=== PATIENT | female | born 1955 | race Caucasian/White ===

== ENCOUNTER 2019-10-20 16:10 | Inpatient (IN) ==
--- OUTSIDE RECORDS SUMMARY | 2019-10-20 16:12 | External Medical Summary | Continuity of Care Document ---
:1955 Author Name Ab Calle, Provider Address Unavailable Unavailable , Care Team Providers Name Role Phone Luciano Calle, Ezra Higgins Unavailable [email or web address] Unavailable Unavailable Unavailable Unavailable Unavailable Problems Anemia due to acute blood loss (285.1) (D62) Adenocarcinoma of uterus (179) (C55) Hypertension (401.9) (I10) Allergies and Adverse Reactions No Known Drug Allergies (Allergy) Medications Lisinopril-hydroCHLOROthiazide TABS Refills: 0 Norethindrone Acetate 5 MG Oral Tablet; TAKE 1 TABLET 4 TIMES DAILY Luc Wolf Start: Quantity: 30 20-Oct-2012 Refills: 0 Ferrous Gluconate 325 (36 Fe) MG TABS; TAKE 1 TABLET 3 times daily Luc Wolf Start: Quantity: 120 20-Oct-2012 Refills: 0 Procedures History of Hysteroscopy Of Uterus Status : Completed History of Dilation And Curettage Status : Completed Immunizations Immunizations not documented Social History - Smoking Status Never smoked tobacco Plan of Treatment Planned Observations Planned Goals not documented Results No Known Results Results not documented
--- NOTE | 2019-10-20 17:52 | Emergency Department Note ---
Impression & Plan Acute right flank pain ED Provider Note NAME: EVA MELGOZA AGE: 64 SEX: F ARRIVES VIA: Walk-In INFORMANT: [Patient] ED PROVIDER(S): Jose Luis Mansfield MD CHIEF COMPLAINT: Flank pain PLAN: Disposition: Admitted Condition: [Good] MEDICAL DECISION MAKING: Patient presented with complaints of right flank pain. Initially the seem to be of a possible abdominal etiology. Blood work was obtained. Urinalysis performed. Patient also had CT imaging of the abdomen pelvis ordered. She was found to have a mild leukocytosis. There was some bacteria in the urine but the specimen appeared to be an unsatisfactory clean-catch. CT imaging did not reveal any renal pathology or stones. The patient was found to have a right lower lobe effusion as well as changes in the right middle and lower lobes. Patient did note some shortness of breath issues. She did not have any stigmata of DVT. I was concerned given the pain and the abnormal appearance of the chest on abdominal imaging. CT PE study was performed and revealed bilateral pulmonary emboli. Coagulation studies were ordered. The patient was informed. I discussed initiation of anticoagulation with heparin. Hypercoagulability labs were ordered. The case was discussed with Dr. Moreland of internal medicine. The patient was evaluated in the ER and admitted. Internal medicine will follow her urinalysis culture results. Triage Nursing notes reviewed and agree them. Vital Signs: reviewed and remarkable for [no significant abnormalities] Differential diagnosis: Renal colic, UTI, appendicitis, diverticulitis, mesenteric ischemia, aortic pathology, infections, inflammatory bowel disease, PUD, biliary pathology, pneumonia, as well as other pathologies. ER treatment provided: Patient declined analgesia IV heparin Diagnostics interpreted by me: Consultation(s): Internal medicine HPI: The patient is a 64 year old female who presents to the Emergency Room with complaints of right flank pain. This started 4-5 days ago and is colicky. The patient also notes the following associated symptoms, RLQ abd pain. The patient has taken no medications for relieving factors. Current pain is rated as 1/10. Peak pain, sharp 6/10. Pt denies LOC, headache, fevers, chills, diaphoresis, visual changes, neck pain, chest pain, breathing difficulties, nausea, vomiting, back pain, melena, hematochezia, urinary symptoms, numbness, weakness, lymphadenopathy, rash, or other complaints. ROS: See above HPI for pertinent positives & negatives. A total of [10] systems reviewed and were otherwise negative. PAST MEDICAL HISTORY:[See Below] Uterine CA PAST SURGICAL HISTORY:[See Below]s/p Hysterectomy FAMILY HISTORY:[See Below] SOCIAL HISTORY:[See Below]No etoh, no tobacco HOME MEDICATIONS:[See Below] ALLERGIES:[See Below] VITALS:[See Below] PHYSICAL EXAMINATION: GENERAL: Awake, alert, well-appearing, in no distress HENT: Normocephalic, atraumatic. Oropharynx unremarkable. EYES: Normal conjunctiva. Sclera non-icteric. NECK: Inspection normal. Non-tender. Supple. No nuchal rigidity. FROM. No masses. RESPIRATORY: Clear to auscultation. No wheezes. No rales. Normal respiratory effort. CARDIAC: Normal rate. Normal rhythm. No murmurs. No rubs. Extremities warm and well perfused. Pulses equal. No JVD. GI: Soft, non-distended. Right flank tenderness to palpation. No rebound or guarding. No masses. RECTAL: Deferred. MUSCULOSKELETAL: Atraumatic. Chest examination reveals no tenderness. The back is symmetrical on inspection without obvious abnormality. There is right CVA tenderness to palpation. No joint edema. LOWER EXTREMITIES: Calves are equal size bilaterally and non-tender. No edema. No discoloration. NEURO: Normal sensorium. No sensory or motor deficits noted. SKIN: No rash or jaundice noted. ED COURSE: [Critical Care:] I have personally spent greater than 30 minutes of critical care time in the direct management of this patient. This includes bedside care, interpretation of diagnostic studies, and testing, discussion with consultants, patient, and other required patient management activities. This 30 minutes is in excess of all separately billable procedures. Jose Luis Mansfield MD Past Med/Surg History Social History Preferred Language: Trinidadian Beliefs That Will Affect Care: None Current Living Situation: Alone Other Information That Helps Us Care for You: No Feels Safe at Home: Yes Safety Concerns: Feels Safe At This Time Smoking Status: Never smoker Hx Alcohol Use: No Hx Substance Use: No Allergies Allergies Allergy/AdvReac Type Severity Reaction Status Date / Time No Known Allergies Allergy Verified 10/20/19 18:40 Home Meds Home Medications Medication Instructions Recorded Confirmed Probiotic Gummy 1 tab PO QPM 10/20/19 10/20/19 aspirin 81 mg PO QPM 10/20/19 10/20/19 cholecalciferol (vitamin D3) 1,000 unit PO QPM 10/20/19 10/20/19 [Vitamin D3] coenzyme Q10 100 mg PO QPM 10/20/19 10/20/19 inulin [Fiber Gummies] 2 g PO QPM 10/20/19 10/20/19 [id number]-cel-mhmdeke-ast 1 cap PO QPM 10/20/19 10/20/19 [krill oil] lisinopril-hydrochlorothiazide 1 tab PO QPM 10/20/19 10/20/19 [id number]-efirwyns-tcmhap 1 tab PO QPM 10/20/19 10/20/19 [Multivitamin 50 Plus] Results & Data (ED) Vital Signs Vital Signs - 24 hr 10/20/19 16:12 10/20/19 18:06 10/20/19 18:30 Temperature 36.7 C Temperature Source Oral Pulse Rate 110 H Pulse Rate [Left Finger] 112 H 100 H Pulse Rhythm Regular Pulse Strength Normal Respiratory Rate 18 22 20 Respiratory Effort / Characteristics Non-Labored Spontaneous Respiratory Depth Normal Respiratory Pattern Regular Blood Pressure 101/70 Blood Pressure [Right Arm] 132/72 116/87 Blood Pressure Mean 80 Blood Pressure Mean [Right Arm] 92 96 Blood Pressure Position Sitting Blood Pressure Position [Right Arm] Pulse Oximetry 95 98 97 Oxygen Delivery Method Room Air Room Air Room Air Sepsis Recent Fever Within 48 Hours No Sepsis New/Unexplained Change in Mental Status No Sepsis Action Taken by Nursing No Action Required 10/20/19 19:13 10/20/19 20:39 10/20/19 21:42 Temperature Temperature Source Pulse Rate Pulse Rate [Left Finger] 98 H 95 H 91 H Pulse Rhythm Pulse Strength Respiratory Rate 20 20 20 Respiratory Effort / Characteristics Non-Labored Spontaneous Respiratory Depth Normal Normal Respiratory Pattern Blood Pressure Blood Pressure [Right Arm] 117/80 127/80 135/95 Blood Pressure Mean Blood Pressure Mean [Right Arm] 92 95 108 Blood Pressure Position Blood Pressure Position [Right Arm] Lying Sitting Lying Pulse Oximetry 99 99 94 Oxygen Delivery Method Room Air Room Air Sepsis Recent Fever Within 48 Hours Sepsis New/Unexplained Change in Mental Status Sepsis Action Taken by Nursing Laboratory Data Result diagrams: 10/20/19 17:57 06/05/20 17:57 Lab Results 10/20/19 10/20/19 10/20/19 Range/Units 17:50 17:57 17:57 WBC 13.74 H (4.8-10.8) K/uL RBC 4.73 (4.2-5.4) M/uL Hgb 11.3 L (12.0-16.0) g/dL Hct 36.4 L (37-47) % MCV 77.0 L (80-100) fL MCH 23.9 L (25-34) pg MCHC 31.0 L (32-36) g/dL RDW Std Deviation 45.6 (36.4-46.3) fL RDW Coeff of Dahlia 16.5 H (11.5-14.5) % Plt Count 439 H (130-400) K/uL MPV 9.3 (7.4-10.4) fL Immature Gran % (Auto) 0.2 % Neut % (Auto) 84.0 % Lymph % (Auto) 9.3 % [place] % (Auto) 6.4 % Eos % (Auto) 0.0 % Baso % (Auto) 0.1 % Immature Gran # (Auto) 0.03 H (0.00-0.02) K/uL Neut # (Auto) 11.53 H (1.4-6.5) K/uL Lymph # (Auto) 1.28 (1.2-3.4) K/uL [place] # (Auto) 0.88 H (0.11-0.59) K/uL Eos # (Auto) 0.00 (0-0.5) K/uL Baso # (Auto) 0.02 (0-0.2) K/uL PT 13.0 H (9.0-12.0) Seconds INR 1.2 H (0.9-1.1) APTT 21.7 (21.0-31.0) Seconds PTT Ratio 0.8 Sodium 139 (136-145) mmol/L Potassium 3.5 (3.5-5.1) mmol/L Chloride 103 (98-107) mmol/L Carbon Dioxide 26 (21-32) mmol/L Anion Gap 10.0 (3-11) BUN 21 H (7-18) mg/dl Creatinine 1.11 (0.6-1.2) mg/dl Est Cr Clr Drug Dosing Not Reportable Est GFR ( Amer) 59.9 Est GFR (Non-Af Amer) 51.7 BUN/Creatinine Ratio 19.3 (10-20) Glucose 122 H (70-99) mg/dl Calcium 11.4 H (8.5-10.1) mg/dl Magnesium (1.8-2.4) mg/dl Total Bilirubin 0.7 (0.2-1) mg/dl AST 103 H (15-37) U/L ALT 23 (12-78) U/L Alkaline Phosphatase 135 H (45-117) U/L Total Protein 7.7 (6.4-8.2) gm/dl Albumin 2.3 L (3.4-5.0) gm/dl Globulin 5.4 H (2.5-4.0) gm/dl Albumin/Globulin Ratio 0.4 L (0.9-2) Lipase 59 L (73-393) U/L Procalcitonin (0-0.5) ng/ml Urine Color Urine Appearance (Clear) Urine pH (4.5-7.5) Ur Specific [place] (1.000-1.030) Urine Protein (Negative) Urine Glucose (UA) (Negative) Urine Ketones (Negative) Urine Blood (Negative) Urine Nitrite (Negative) Urine Bilirubin (Negative) Urine Urobilinogen (Negative) Ur Leukocyte Esterase (Negative) Urine WBC (Auto) (0-5) /hpf Urine RBC (Auto) (0-4) /hpf U Hyaline Cast (Auto) (0-5) /lpf U Epithel Cells (Auto) (0-5) /lpf Urine Bacteria (Auto) (Negative) Granular Casts (0) /lpf 10/20/19 10/20/19 10/20/19 Range/Units 18:00 22:03 22:03 WBC (4.8-10.8) K/uL RBC (4.2-5.4) M/uL Hgb (12.0-16.0) g/dL Hct (37-47) % MCV (80-100) fL MCH (25-34) pg MCHC (32-36) g/dL RDW Std Deviation (36.4-46.3) fL RDW Coeff of Dahlia (11.5-14.5) % Plt Count (130-400) K/uL MPV (7.4-10.4) fL Immature Gran % (Auto) % Neut % (Auto) % Lymph % (Auto) % [place] % (Auto) % Eos % (Auto) % Baso % (Auto) % Immature Gran # (Auto) (0.00-0.02) K/uL Neut # (Auto) (1.4-6.5) K/uL Lymph # (Auto) (1.2-3.4) K/uL [place] # (Auto) (0.11-0.59) K/uL Eos # (Auto) (0-0.5) K/uL Baso # (Auto) (0-0.2) K/uL PT (9.0-12.0) Seconds INR (0.9-1.1) APTT (21.0-31.0) Seconds PTT Ratio Sodium (136-145) mmol/L Potassium (3.5-5.1) mmol/L Chloride (98-107) mmol/L Carbon Dioxide (21-32) mmol/L Anion Gap (3-11) BUN (7-18) mg/dl Creatinine (0.6-1.2) mg/dl Est Cr Clr Drug Dosing Est GFR ( Amer) Est GFR (Non-Af Amer) BUN/Creatinine Ratio (10-20) Glucose (70-99) mg/dl Calcium (8.5-10.1) mg/dl Magnesium 2.4 (1.8-2.4) mg/dl Total Bilirubin (0.2-1) mg/dl AST (15-37) U/L ALT (12-78) U/L Alkaline Phosphatase (45-117) U/L Total Protein (6.4-8.2) gm/dl Albumin (3.4-5.0) gm/dl Globulin (2.5-4.0) gm/dl Albumin/Globulin Ratio (0.9-2) Lipase (73-393) U/L Procalcitonin 0.43 (0-0.5) ng/ml Urine Color Dark Yellow Urine Appearance Turbid A (Clear) Urine pH 5.0 (4.5-7.5) Ur Specific [place] 1.023 (1.000-1.030) Urine Protein 1+ H (Negative) Urine Glucose (UA) Negative (Negative) Urine Ketones 1+ H (Negative) Urine Blood Negative (Negative) Urine Nitrite Negative (Negative) Urine Bilirubin Negative (Negative) Urine Urobilinogen Negative (Negative) Ur Leukocyte Esterase 1+ H (Negative) Urine WBC (Auto) 10-30 H (0-5) /hpf Urine RBC (Auto) 5-10 H (0-4) /hpf U Hyaline Cast (Auto) 10-30 H (0-5) /lpf U Epithel Cells (Auto) >30 H (0-5) /lpf Urine Bacteria (Auto) 4+ H (Negative) Granular Casts 5-10 H (0) /lpf Administered Medications Heparin Sodium/Dextrose (Heparin Sodium/Dextrose) 25,000 units in 500 mls @ 25 mls/hr IV .Q20H [facility], [facility]; Protocol Stop: 11/19/19 21:14 Last Admin: 10/20/19 22:31 Dose: 1,250 units/hr, 25 mls/hr Documented by: [id number] Cosigned by: [id number] Lactated Ringer's (Lr) 1,000 mls @ 60 mls/hr IV .[id number] ONE Stop: 10/21/19 16:10 Last Admin: 10/20/19 23:49 Dose: 60 mls/hr Documented by: [id number] Discontinued Medications Heparin Sodium (Porcine) (Heparin Sodium (Porcine)) Confirm Administered Dose 5,000 units .ROUTE .STK-MED ONE Stop: 10/20/19 22:18 Last Admin: 10/20/19 22:32 Dose: 5,000 units Documented by: [id number] Cosigned by: [id number] Heparin Sodium/Dextrose () 1 ea N/A NOW STA; Protocol Stop: 10/20/19 21:07 Last Admin: 10/20/19 22:32 Dose: Not Given Documented by: [id number] Ioversol (Optiray 320 125ml) 119 ml IV ONCE PRN PRN Reason: Interaction Checking Stop: 10/24/19 20:45 Last Admin: 10/20/19 20:46 Dose: 119 ml Documented by: [id number] Lorazepam (Ativan) 0.25 mg PO NOW STA Stop: 10/20/19 22:33 Last Admin: 10/20/19 23:49 Dose: Not Given Documented by: [id number] Discharge Plan Visit Data *Final* Discharge Date/Time: 10/20/19 23:14 Chief Complaint: Flank Pain Stated Complaint: SIDE STITCH ED Provider: Jose Luis Mansfield Discharge Problem: Acute right flank pain Patient Disposition: Admitted As Inpatient Discharge Instructions Interventions: ED Discharge Assessment Last Done: 10/20/19 23:14
[2019-10-20 18:09] LABS: Basophils # (auto) 0.02 K/uL (0-0.2); Basophils % (auto) 0.1 %; Hematocrit (blood only) 36.4 % (37-47); Hemoglobin 11.3 g/dL (12.0-16.0); Immature Granulocytes # (auto) 0.03 K/uL (0.00-0.02); Immature Granulocytes % (auto) 0.2 %; Lymphocytes # (auto) 1.28 K/uL (1.2-3.4); Lymphocytes % (auto) 9.3 %; Mean Corpuscular Hemoglobin 23.9 pg (25-34); Mean Platelet Volume 9.3 fL (7.4-10.4); Monocytes # (auto) 0.88 K/uL (0.11-0.59); Monocytes % (auto) 6.4 %; Neutrophils # (auto) 11.53 K/uL (1.4-6.5); Platelet Count 439 K/uL (130-400); RDW Coefficient of Variation 16.5 % (11.5-14.5); RDW Standard Deviation 45.6 fL (36.4-46.3); Red Blood Count 4.73 M/uL (4.2-5.4); White Blood Count 13.74 K/uL (4.8-10.8)
[2019-10-20 18:23] LABS: Appearance Urine Turbid (Clear); Bacteria Urine Automated 4+ (Negative); Blood Urine Negative (Negative); Color Urine Dark Yellow; Epithelial Cell Urine Auto >30 /lpf (0-5); Glucose Urine UA Negative (Negative); Ketones Urine 1+ (Negative); Leukocyte Esterase Urine 1+ (Negative); Nitrite Urine Negative (Negative); Protein Urine 1+ (Negative); Specific Gravity Urine 1.023 (1.000-1.030); Urobilinogen Urine Negative (Negative)
[2019-10-20 18:27] LABS: Bilirubin Urine Negative (Negative); Ictotest Urine Negative (Negative)
[2019-10-20 18:31] LABS: Alanine Aminotransferase 23 U/L (12-78); Albumin Level 2.3 gm/dl (3.4-5.0); Aspartate Aminotransferase 103 U/L (15-37); BUN Creatinine Ratio 19.3 (10-20); Blood Urea Nitrogen 21 mg/dl (7-18); Calcium 11.4 mg/dl (8.5-10.1); Carbon Dioxide 26 mmol/L (21-32); Chloride 103 mmol/L (98-107); Est GFR (African American) 59.9; Est GFR (Non-African American) 51.7; Glucose 122 mg/dl (70-99); Lipase 59 U/L (73-393); Potassium 3.5 mmol/L (3.5-5.1); Sodium 139 mmol/L (136-145)
--- NOTE | 2019-10-20 18:32 | CT Scan Report ---
CT SCAN OF THE ABDOMEN AND PELVIS WITHOUT CONTRAST CLINICAL HISTORY: Right flank pain COMPARISON STUDY: No previous studies for comparison. TECHNIQUE: CT scan of the abdomen and pelvis was performed from the lung bases to the proximal femurs . Images are reviewed in the axial, sagittal, and coronal planes. IV contrast was not administered fo r this examination. A dose lowering technique was utilized adhering to the principles of ALARA. CT DOSE: 736.50 mGy.cm FINDINGS: Lower chest: There is a small right pleural effusion with right middle lobe and lower lobe airspace o pacities, statistically atelectatic. There is a small hiatal hernia Liver: There is moderate to marked hepatomegaly. Liver measures 26 cm in length. No focal hepatic mas ses are visualized. There is hepatic steatosis. Gallbladder: Unremarkable. Spleen: Normal in size and attenuation. Pancreas: Unremarkable. Adrenal glands: Unremarkable. Kidneys: No renal, ureteral, or bladder calculi are visualized. Bowel: There are no transition zones to indicate bowel obstruction. There is colonic diverticulosis. There is no evidence of acute diverticulitis. The appendix appears normal. Peritoneum: There is no intraperitoneal free air or abdominal ascites. Vasculature: The abdominal aorta is normal in course and caliber. Adenopathy: None. Pelvic viscera: The uterus appears surgically absent Skeletal structures: No destructive skeletal lesions are visualized. There is a 1 cm right breast nod ule. IMPRESSION: 1. Hepatic steatosis and moderate hepatomegaly 2. No evidence of bowel obstruction. No evidence of free air 3. Normal appendix. No evidence of acute diverticulitis 4. No renal, ureteral, or bladder calculi identified 5. 1 cm right breast nodule 6. Small right pleural effusion. Right middle lobe and right lower lobe airspace opacities, likely at electatic ACT 112: Negative or not required by law. Electronically signed by: Waldo Heller M.D. 10/20/2019 6:31 PM
[2019-10-20 18:34] LABS: Albumin Globulin Ratio 0.4 (0.9-2); Alkaline Phosphatase 135 U/L (45-117); Bilirubin,Total 0.7 mg/dl (0.2-1); Globulin 5.4 gm/dl (2.5-4.0); Total Protein 7.7 gm/dl (6.4-8.2)
[2019-10-20] MEDS ORDERED: OPTIRAY 320 125ml IV PRN (20:46)
--- NOTE | 2019-10-20 20:58 | CT Scan Report ---
CT ANGIOGRAM OF THE CHEST CLINICAL HISTORY: Right-sided pain. Pleural effusion. Possible pulmonary embolism. COMPARISON STUDY: No previous studies for comparison. TECHNIQUE: Following the IV administration of 119 mL of Optiray-320, CT angiogram of the thorax was p erformed from the thoracic inlet to the lung bases utilizing the pulmonary embolus protocol. Images a re reviewed in the axial, sagittal, and coronal planes. IV contrast was administered without complica tion. MIP imaging was performed. A dose lowering technique was utilized adhering to the principles o f ALARA. CT DOSE: 571.01 mGy.cm FINDINGS: There is a multinodular thyroid goiter No pathologically enlarged axillary mediastinal or hilar lymph nodes were visualized. There was no evidence of thoracic aortic dilatation. There are bilateral pulmonary filling defects indicative of acute bilateral pulmonary embolism. There is a small right pleural effusion There is no evidence of lobar consolidation. There are right basilar airspace opacities, likely atele ctatic. There is hepatic steatosis. The liver is enlarged. There is an unusual hepatic enhancement pattern. A n MRI the liver is recommended in follow-up. There is small hiatal hernia IMPRESSION: 1. Acute bilateral pulmonary embolism 2. Small right pleural effusion 3. Right lower lobe airspace opacities likely atelectatic 4. Hepatomegaly. Unusual enhancement pattern of the liver. An MRI the liver is recommended in follow- up. ACT 112: Negative or not required by law. Electronically signed by: Waldo Heller M.D. 10/20/2019 8:57 PM
[2019-10-20 21:25] LABS: INR 1.2 (0.9-1.1); Partial Thromboplastin Ratio 0.8; Partial Thromboplastin Time 21.7 Seconds (21.0-31.0)
[2019-10-20] MEDS ORDERED: HEPARIN SOD 5,000 UNIT/0.5 ML VIAL ONE (22:17)
[2019-10-20] MEDS: HEPARIN SODIUM/DEXTROSE 25,000 UNITS/500 ML BAG IV SCH (22:31)
[2019-10-20] MEDS ORDERED: LORazepam 0.5 MG TAB PO STA (22:32)
--- NOTE | 2019-10-20 22:32 | History & Physical Report ---
Date of Service October 20, 2019 Assessment & Plan (1) Pulmonary embolism: Unprovoked event Rule out LE venous clot as source Rule out hypercoagulable state Incidental finding of right breast nodule rule out malignancy (? predisposing factor to clot) hx diastolic dysfunction, patient on the dry side given ketonuria Hypercalcemia secondary to mild clinical dehydration vs possible malignancy HTN, stable uterine cancer status post surgery/radiation chronic anemia, hemoglobin at baseline Hepatomegaly, unusual enhancement as per CT report Asymptomatic pyuria, no sepsis Hyperglycemia rule out DM Medical telemetry IV heparin LE venous Dopplers rule out DVT Hypercoagulable work-up as ordered by ER provider prior to IV heparin initiation. Outpatient Surgery consultation regarding right breast nodule Consider Hematology opinion Re: Unprovoked PE IVF, follow serum calcium, check serum phosphorus, intact PTH Appropriate to hold home diuretic for now given clinical dehydration. May need additional hypercalcemia lab work/Nephrology eval pending response to initial IVF bolus Clarify recommended MRI study for liver with radiology in a.m. Check hemoglobin A1c DVT prophylaxis. IV heparin Full code. Text document was generated using [employer] voice recognition software. It may contain grammatical or spelling errors. Kindly contact undersigned for clarification of any documentation item in question. History of Present Illness Chief Complaint: Right-sided flank pain, S OB Primary Care Provider: Artemio Narvaez MD History obtained from patient and records. Medical history significant for diastolic dysfunction as per records (EF of 70%, TTE 2013), hypertension, uterine cancer status post surgery/radiation, chronic anemia (baseline hemoglobin of hemoglobin of 10 from 2013 as per records). Few days history of achy right flank/right subcostal pain with shortness of breath usually on exertion. Denies dysuria/hematuria symptoms. Legs a little more swollen than usual as per patient. No fever, no chills, no cough. No recent history of prolonged travel or being bedbound by illness. At the ER, IV heparin started for pulmonary embolism on CT. No prior episodes in the past. No known family history as per patient. Medical History as above Has not had mammograms for many years now due to concerns about "false positives". Colonoscopy 2018 showed polyps, internal hemorrhoids, diverticulosis Surgical History : D&C, LUTHER Family History : Lung cancer, colon cancer, diabetes; no blood clots Personal/Social history : Non-smoker, no EtOH intake, retired [employer] employee Allergies Allergy/AdvReac Type Severity Reaction Status Date / Time No Known Allergies Allergy Verified 10/20/19 18:40 Home Medications Home Medications Medication Instructions Recorded Confirmed Type Probiotic Gummy 1 tab PO QPM 10/20/19 10/20/19 History aspirin 81 mg PO QPM 10/20/19 10/20/19 History cholecalciferol (vitamin D3) 1,000 unit PO QPM 10/20/19 10/20/19 History [Vitamin D3] coenzyme Q10 100 mg PO QPM 10/20/19 10/20/19 History inulin [Fiber Gummies] 2 g PO QPM 10/20/19 10/20/19 History yvnxs-wf-[id number]-maf-nccejde-ast 1 cap PO QPM 10/20/19 10/20/19 History [krill oil] lisinopril-hydrochlorothiazide 1 tab PO QPM 10/20/19 10/20/19 History yivzptusfudn-htqdlwfv-ziyjec 1 tab PO QPM 10/20/19 10/20/19 History [Multivitamin 50 Plus] Past Med/Surg History Social History Preferred Language: Romansh Beliefs That Will Affect Care: None Current Living Situation: Alone Other Information That Helps Us Care for You: No Feels Safe at Home: Yes Safety Concerns: Feels Safe At This Time Smoking Status: Never smoker Hx Alcohol Use: No Hx Substance Use: No Review of Systems Review of Systems: As per HPI, all 10 systems reviewed, all other ROS negative Physical Exam Physical Exam: GENERAL: Slightly anxious, obese, no respiratory distress SKIN: Pallor , warm HEENT: Bespectacled, pale palpebral conjunctivae, no ptosis, dry buccal mucosa NECK : Supple, no tenderness CHEST : CTA, no tenderness HEART : RRR, no obvious murmurs ABDOMEN: Some distention, nontender EXTREMITIES : Minimal LE swelling, no LE tenderness, no other conspicuous deformities noted NEUROLOGIC : Coherent, no facial asymmetry, intention tremors Results & Data Results & Data ([facility]) Vital Signs (Past 12 Hours) Vital Signs Temp Pulse Pulse Resp BP BP Pulse Ox 10/20/19 21:42 91 H 20 135/95 94 10/20/19 20:39 95 H 20 127/80 99 10/20/19 19:13 98 H 20 117/80 99 10/20/19 18:30 100 H 20 116/87 97 10/20/19 18:06 112 H 22 132/72 98 10/20/19 16:12 36.7 C 110 H 18 101/70 95 Laboratory Results Laboratory Results WBC 13.74 K/uL (4.8-10.8) H 10/20/19 17:57 RBC 4.73 M/uL (4.2-5.4) 10/20/19 17:57 Hgb 11.3 g/dL (12.0-16.0) L 10/20/19 17:57 Hct 36.4 % (37-47) L 10/20/19 17:57 MCV 77.0 fL (80-100) L 10/20/19 17:57 MCH 23.9 pg (25-34) L 10/20/19 17:57 MCHC 31.0 g/dL (32-36) L 10/20/19 17:57 RDW Std Deviation 45.6 fL (36.4-46.3) 10/20/19 17:57 RDW Coeff of Dahlia 16.5 % (11.5-14.5) H 10/20/19 17:57 Plt Count 439 K/uL (130-400) H 10/20/19 17:57 MPV 9.3 fL (7.4-10.4) 10/20/19 17:57 Immature Gran % (Auto) 0.2 % 10/20/19 17:57 Neut % (Auto) 84.0 % 10/20/19 17:57 Lymph % (Auto) 9.3 % 10/20/19 17:57 [place] % (Auto) 6.4 % 10/20/19 17:57 Eos % (Auto) 0.0 % 10/20/19 17:57 Baso % (Auto) 0.1 % 10/20/19 17:57 Immature Gran # (Auto) 0.03 K/uL (0.00-0.02) H 10/20/19 17:57 Neut # (Auto) 11.53 K/uL (1.4-6.5) H 10/20/19 17:57 Lymph # (Auto) 1.28 K/uL (1.2-3.4) 10/20/19 17:57 [place] # (Auto) 0.88 K/uL (0.11-0.59) H 10/20/19 17:57 Eos # (Auto) 0.00 K/uL (0-0.5) 10/20/19 17:57 Baso # (Auto) 0.02 K/uL (0-0.2) 10/20/19 17:57 PT 13.0 Seconds (9.0-12.0) H 10/20/19 17:50 INR 1.2 (0.9-1.1) H 10/20/19 17:50 APTT 21.7 Seconds (21.0-31.0) 10/20/19 17:50 PTT Ratio 0.8 10/20/19 17:50 Sodium 139 mmol/L (136-145) 10/20/19 17:57 Potassium 3.5 mmol/L (3.5-5.1) 10/20/19 17:57 Chloride 103 mmol/L (98-107) 10/20/19 17:57 Carbon Dioxide 26 mmol/L (21-32) 10/20/19 17:57 Anion Gap 10.0 (3-11) 10/20/19 17:57 BUN 21 mg/dl (7-18) H 10/20/19 17:57 Creatinine 1.11 mg/dl (0.6-1.2) 10/20/19 17:57 Est Cr Clr Drug Dosing Not Reportable 10/20/19 17:57 Est GFR ( Amer) 59.9 10/20/19 17:57 Est GFR (Non-Af Amer) 51.7 10/20/19 17:57 BUN/Creatinine Ratio 19.3 (10-20) 10/20/19 17:57 Glucose 122 mg/dl (70-99) H 10/20/19 17:57 Calcium 11.4 mg/dl (8.5-10.1) H 10/20/19 17:57 Total Bilirubin 0.7 mg/dl (0.2-1) 10/20/19 17:57 AST 103 U/L (15-37) H 10/20/19 17:57 ALT 23 U/L (12-78) 10/20/19 17:57 Alkaline Phosphatase 135 U/L (45-117) H 10/20/19 17:57 Total Protein 7.7 gm/dl (6.4-8.2) 10/20/19 17:57 Albumin 2.3 gm/dl (3.4-5.0) L 10/20/19 17:57 Globulin 5.4 gm/dl (2.5-4.0) H 10/20/19 17:57 Albumin/Globulin Ratio 0.4 (0.9-2) L 10/20/19 17:57 Lipase 59 U/L (73-393) L 10/20/19 17:57 Urine Color Dark Yellow 10/20/19 18:00 Urine Appearance Turbid (Clear) A 10/20/19 18:00 Urine pH 5.0 (4.5-7.5) 10/20/19 18:00 Ur Specific [place] 1.023 (1.000-1.030) 10/20/19 18:00 Urine Protein 1+ (Negative) H 10/20/19 18:00 Urine Glucose (UA) Negative (Negative) 10/20/19 18:00 Urine Ketones 1+ (Negative) H 10/20/19 18:00 Urine Blood Negative (Negative) 10/20/19 18:00 Urine Nitrite Negative (Negative) 10/20/19 18:00 Urine Bilirubin Negative (Negative) 10/20/19 18:00 Urine Urobilinogen Negative (Negative) 10/20/19 18:00 Ur Leukocyte Esterase 1+ (Negative) H 10/20/19 18:00 Urine WBC (Auto) 10-30 /hpf (0-5) H 10/20/19 18:00 Urine RBC (Auto) 5-10 /hpf (0-4) H 10/20/19 18:00 U Hyaline Cast (Auto) 10-30 /lpf (0-5) H 10/20/19 18:00 U Epithel Cells (Auto) >30 /lpf (0-5) H 10/20/19 18:00 Urine Bacteria (Auto) 4+ (Negative) H 10/20/19 18:00 Granular Casts 5-10 /lpf (0) H 10/20/19 18:00 Diagnostic Findings Chest CTA: 1. Acute bilateral pulmonary embolism 2. Small right pleural effusion 3. Right lower lobe airspace opacities likely atelectatic 4. Hepatomegaly. Unusual enhancement pattern of the liver. An MRI the liver is recommended in follow-up. CT abdomen pelvis: 1. Hepatic steatosis and moderate hepatomegaly 2. No evidence of bowel obstruction. No evidence of free air 3. Normal appendix. No evidence of acute diverticulitis 4. No renal, ureteral, or bladder calculi identified 5. 1 cm right breast nodule 6. Small right pleural effusion. Right middle lobe and right lower lobe airspace opacities, likely atelectatic
[2019-10-20] MEDS ORDERED: LACTATED RINGER'S 1,000 ML IV ONE (23:31)
[2019-10-20] MEDS ORDERED: LORazepam 0.25 MG/0.5 ML VIAL IV PRN (23:31)
[2019-10-20] MEDS ORDERED: MoRPHine SULFATE 4 MG/ML 1 ML CARP\\VIAL IV PRN (23:31)
[2019-10-20] MEDS ORDERED: PROMETHAZINE HCL 12.5 MG in SODIUM CHLORIDE 0.9% 50 ML IV PRN (23:31)
[2019-10-20] MEDS ORDERED: TRAMADOL HCL 50 MG TABLET PO PRN (23:31)
[2019-10-20] MEDS ORDERED: ACETAMINOPHEN 325 MG TAB PO PRN (23:31)
[2019-10-21] MEDS ORDERED: SODIUM CHLORIDE 0.9% 1000ML 1,000 ML IV ONE ×2 (04:02→04:45)
[2019-10-21 04:49] LABS: Basophils # (auto) 0.02 K/uL (0-0.2); Basophils % (auto) 0.2 %; Eosinophils # (auto) 0.02 K/uL (0-0.5); Eosinophils % (auto) 0.2 %; Hematocrit (blood only) 32.7 % (37-47); Immature Granulocytes # (auto) 0.03 K/uL (0.00-0.02); Immature Granulocytes % (auto) 0.3 %; Lymphocytes % (auto) 16.9 %; Mean Corpuscular Hemoglobin 23.2 pg (25-34); Mean Corpuscular Hgb Conc 30.6 g/dL (32-36); Mean Corpuscular Volume 75.9 fL (80-100); Mean Platelet Volume 9.4 fL (7.4-10.4); Monocytes # (auto) 0.83 K/uL (0.11-0.59); Neutrophils # (auto) 8.91 K/uL (1.4-6.5); Neutrophils % (auto) 75.4 %; Platelet Count 377 K/uL (130-400); RDW Coefficient of Variation 16.3 % (11.5-14.5); RDW Standard Deviation 44.5 fL (36.4-46.3); Red Blood Count 4.31 M/uL (4.2-5.4); White Blood Count 11.81 K/uL (4.8-10.8)
[2019-10-21 04:59] LABS: Partial Thromboplastin Ratio 1.4; Partial Thromboplastin Time 39.3 Seconds (21.0-31.0)
[2019-10-21] MEDS ORDERED: POTASSIUM CHLORIDE 40 MEQ in SODIUM CHLORIDE 0.9% 1000ML 1,000 ML IV SCH ×2 (05:00→05:45)
[2019-10-21 05:07] LABS: BUN Creatinine Ratio 21.8 (10-20); Calcium 10.3 mg/dl (8.5-10.1); Creatinine Clr Calc Pharmacy 69.4 ml/min; Est GFR (African American) 81.6; Est GFR (Non-African American) 70.4; Potassium 3.4 mmol/L (3.5-5.1)
[2019-10-21 05:08] LABS: Phosphorus 2.7 mg/dl (2.5-4.9)
[2019-10-21] MEDS ORDERED: POTASSIUM CHLORIDE 20 MEQ TABCR PO STA (05:11)
[2019-10-21] MEDS ORDERED: LACTATED RINGER'S 1,000 ML IV ONE (05:30)
[2019-10-21] MEDS ORDERED: HEPARIN IV BOLUS 5,000 UNITS in SYRINGE 0 ML IV ONE ×2 (06:15→13:45)
--- NOTE | 2019-10-21 07:27 | Hospitalist Progress Note ---
Date of Service October 21, 2019 Assessment & Plan (1) Breast nodule: Incidental finding on chest CT PE Concern for malignancy Discussed with Dr. Vincent, hematology/oncology, no inpatient work-up at this time, recommend outpatient work-up Discussed with the patient, she is aware and in agreement -will need mammogram, likely breast surgeon consult, etc. (2) Liver mass: Incidental finding on imaging in ED Concern for malignancy Recommend MRI of liver and liver mass biopsy, currently planned for Wednesday10/23/2019 Patient aware and agrees with the procedures Patient is currently on IV heparin for her PE, heparin will need to be stopped early in the morning 10/23/19 (3) Uterine cancer: Hx of uterine cancer status post hysterectomy/radiation (about 5 years ago) Patient says she had procedure done at [facility] in [place], [place] (4) Pulmonary embolism: On admission, seemingly unprovoked event Patient states she is at home, and may have been sitting more than usual, however there are also incidental findings on imaging, breast nodule and liver mass, concerning for malignancy, and therefore possible hypercoagulable state Dopplers of lower extremities ordered, negative for DVT Poss. hypercoagulable state Hypercoagulable work-up as ordered by ER provider prior to IV heparin initiation. Incidental finding of right breast nodule rule out malignancy (? predisposing factor to clot) and also incidental finding of liver mass Medical telemetry IV heparin Outpatient Surgery consultation regarding right breast nodule Consider Hematology opinion Re: Unprovoked PE Discussed with Dr. Vincent (hematology oncology) recommends to switch to Eliquis on discharge, and further work-up of breast nodule (when talked to Dr. Vincent, did not have information about liver mass yet) Patient received information on Eliquis, and coupon from (5) Hypercalcemia: PTH ordered Calcium decreased after IV fluids Continue to monitor, check phosphorus May need additional hypercalcemia lab work/may need Nephrology eval Hypercalcemia secondary to mild clinical dehydration vs possible malignancy Hx diastolic dysfunction, patient on the dry side on admission HTN, stable Chronic anemia, hemoglobin at baseline Asymptomatic pyuria, no sepsis Hyperglycemia rule out DM Check hemoglobin A1c DVT prophylaxis. IV heparin Full code. I updated patient's brother Raymond, about the incidental findings and current plan. Answered all his questions to his satisfaction. Admission and Anticipated Discharge Date Admission Date: October 20, 2019 Subjective Patient is lying in bed, in no acute distress, on IV heparin. She says that her breathing is better since she got here however she seems still to be little tachypneic occasionally. She especially got tachypneic after walking from the bathroom. She denies denies any fevers, chills, chest pain, dizziness or headedness. She also denies any abdominal pain nausea or vomiting. I contacted Dr. Vincent (heme/onc), to discuss breast nodule, and current diagnos is of PE. Dr. Vincent recommended to switch patient to Eliquis, and outpatient work-up for breast nodule. However I then had conversation with radiologist, and findings of liver mass. Recommended to obtain MRI and liver biopsy. Discussed this with the patient, patient is in agreement. I also updated patient's brother Raymond, and answered all his questions satisfactorily. Review of Systems Review of Systems: All systems reviewed & are unremarkable except as noted in HPI & below Constitutional: no fever and no chills Respiratory: + dyspnea (mild); no cough Cardiovascular: no chest pain and no palpitations Gastrointestinal: no abdominal pain, no nausea and no vomiting Genitourinary: no dysuria Physical Exam Physical Exam: GENERAL: Elderly obese female, sitting up in bed, does not appear in acute distress however she is mildly tachypneic HEENT: Normocephalic, atraumatic, EOMI, PERRL NECK : Supple, no tenderness CHEST : CTAB, no wheezing or rhonchi noted HEART : RRR (HR in low 90s), no obvious murmurs ABDOMEN: Normal bowel sounds, soft, obese, some distention, nontender to palpation EXTREMITIES : Minimal LE swelling, no LE tenderness, moves extremities spontaneously SKIN: Pale, warm, dry NEUROLOGIC : Alert and oriented x3, no facial asymmetry, speech fluent, moves extremities spontaneously Results & Data Results & Data ([facility]) Vital Signs (Past 12 Hours) Vital Signs Temp Pulse Pulse Resp BP Pulse Ox 10/21/19 04:14 37.1 C 88 18 114/74 92 10/21/19 00:16 37 C 102 H 113 H 16 151/87 H 96 10/20/19 23:13 90 20 141/88 H 96 10/20/19 21:42 91 H 20 135/95 94 10/20/19 20:39 95 H 20 127/80 99 Laboratory Results 10/21/19 10/21/19 10/21/19 Range/Units 04:34 04:34 04:34 WBC (4.8-10.8) K/uL RBC (4.2-5.4) M/uL Hgb (12.0-16.0) g/dL Hct (37-47) % MCV (80-100) fL MCH (25-34) pg MCHC (32-36) g/dL RDW Std Deviation (36.4-46.3) fL RDW Coeff of Dahlia (11.5-14.5) % Plt Count (130-400) K/uL MPV (7.4-10.4) fL Immature Gran % (Auto) % Neut % (Auto) % Lymph % (Auto) % [place] % (Auto) % Eos % (Auto) % Baso % (Auto) % Immature Gran # (Auto) (0.00-0.02) K/uL Neut # (Auto) (1.4-6.5) K/uL Lymph # (Auto) (1.2-3.4) K/uL [place] # (Auto) (0.11-0.59) K/uL Eos # (Auto) (0-0.5) K/uL Baso # (Auto) (0-0.2) K/uL PT (9.0-12.0) Seconds INR (0.9-1.1) APTT (21.0-31.0) Seconds PTT Ratio Sodium 141 (136-145) mmol/L Potassium 3.4 L (3.5-5.1) mmol/L Chloride 106 (98-107) mmol/L Carbon Dioxide 28 (21-32) mmol/L Anion Gap 7.0 (3-11) BUN 19 H (7-18) mg/dl Creatinine 0.86 (0.6-1.2) mg/dl Est Cr Clr Drug Dosing 69.4 Est GFR ( Amer) 81.6 Est GFR (Non-Af Amer) 70.4 BUN/Creatinine Ratio 21.8 H (10-20) Glucose 95 (70-99) mg/dl Calcium 10.3 H (8.5-10.1) mg/dl Phosphorus 2.7 (2.5-4.9) mg/dl Magnesium 2.1 (1.8-2.4) mg/dl Total Bilirubin (0.2-1) mg/dl AST (15-37) U/L ALT (12-78) U/L Alkaline Phosphatase (45-117) U/L Total Protein (6.4-8.2) gm/dl Albumin (3.4-5.0) gm/dl Globulin (2.5-4.0) gm/dl Albumin/Globulin Ratio (0.9-2) Lipase (73-393) U/L Procalcitonin (0-0.5) ng/ml PTH Intact Pending Urine Color Urine Appearance (Clear) Urine pH (4.5-7.5) Ur Specific [place] (1.000-1.030) Urine Protein (Negative) Urine Glucose (UA) (Negative) Urine Ketones (Negative) Urine Blood (Negative) Urine Nitrite (Negative) Urine Bilirubin (Negative) Urine Urobilinogen (Negative) Ur Leukocyte Esterase (Negative) Urine WBC (Auto) (0-5) /hpf Urine RBC (Auto) (0-4) /hpf U Hyaline Cast (Auto) (0-5) /lpf U Epithel Cells (Auto) (0-5) /lpf Urine Bacteria (Auto) (Negative) Granular Casts (0) /lpf 10/21/19 10/21/19 10/20/19 Range/Units 04:34 04:34 22:03 WBC 11.81 H (4.8-10.8) K/uL RBC 4.31 (4.2-5.4) M/uL Hgb 10.0 L (12.0-16.0) g/dL Hct 32.7 L (37-47) % MCV 75.9 L (80-100) fL MCH 23.2 L (25-34) pg MCHC 30.6 L (32-36) g/dL RDW Std Deviation 44.5 (36.4-46.3) fL RDW Coeff of Dahlia 16.3 H (11.5-14.5) % Plt Count 377 (130-400) K/uL MPV 9.4 (7.4-10.4) fL Immature Gran % (Auto) 0.3 % Neut % (Auto) 75.4 % Lymph % (Auto) 16.9 % [place] % (Auto) 7.0 % Eos % (Auto) 0.2 % Baso % (Auto) 0.2 % Immature Gran # (Auto) 0.03 H (0.00-0.02) K/uL Neut # (Auto) 8.91 H (1.4-6.5) K/uL Lymph # (Auto) 2.00 (1.2-3.4) K/uL [place] # (Auto) 0.83 H (0.11-0.59) K/uL Eos # (Auto) 0.02 (0-0.5) K/uL Baso # (Auto) 0.02 (0-0.2) K/uL PT (9.0-12.0) Seconds INR (0.9-1.1) APTT 39.3 H (21.0-31.0) Seconds PTT Ratio 1.4 Sodium (136-145) mmol/L Potassium (3.5-5.1) mmol/L Chloride (98-107) mmol/L Carbon Dioxide (21-32) mmol/L Anion Gap (3-11) BUN (7-18) mg/dl Creatinine (0.6-1.2) mg/dl Est Cr Clr Drug Dosing Est GFR ( Amer) Est GFR (Non-Af Amer) BUN/Creatinine Ratio (10-20) Glucose (70-99) mg/dl Calcium (8.5-10.1) mg/dl Phosphorus (2.5-4.9) mg/dl Magnesium (1.8-2.4) mg/dl Total Bilirubin (0.2-1) mg/dl AST (15-37) U/L ALT (12-78) U/L Alkaline Phosphatase (45-117) U/L Total Protein (6.4-8.2) gm/dl Albumin (3.4-5.0) gm/dl Globulin (2.5-4.0) gm/dl Albumin/Globulin Ratio (0.9-2) Lipase (73-393) U/L Procalcitonin 0.43 (0-0.5) ng/ml PTH Intact Urine Color Urine Appearance (Clear) Urine pH (4.5-7.5) Ur Specific [place] (1.000-1.030) Urine Protein (Negative) Urine Glucose (UA) (Negative) Urine Ketones (Negative) Urine Blood (Negative) Urine Nitrite (Negative) Urine Bilirubin (Negative) Urine Urobilinogen (Negative) Ur Leukocyte Esterase (Negative) Urine WBC (Auto) (0-5) /hpf Urine RBC (Auto) (0-4) /hpf U Hyaline Cast (Auto) (0-5) /lpf U Epithel Cells (Auto) (0-5) /lpf Urine Bacteria (Auto) (Negative) Granular Casts (0) /lpf 10/20/19 10/20/19 10/20/19 Range/Units 22:03 18:00 17:57 WBC (4.8-10.8) K/uL RBC (4.2-5.4) M/uL Hgb (12.0-16.0) g/dL Hct (37-47) % MCV (80-100) fL MCH (25-34) pg MCHC (32-36) g/dL RDW Std Deviation (36.4-46.3) fL RDW Coeff of Dahlia (11.5-14.5) % Plt Count (130-400) K/uL MPV (7.4-10.4) fL Immature Gran % (Auto) % Neut % (Auto) % Lymph % (Auto) % [place] % (Auto) % Eos % (Auto) % Baso % (Auto) % Immature Gran # (Auto) (0.00-0.02) K/uL Neut # (Auto) (1.4-6.5) K/uL Lymph # (Auto) (1.2-3.4) K/uL [place] # (Auto) (0.11-0.59) K/uL Eos # (Auto) (0-0.5) K/uL Baso # (Auto) (0-0.2) K/uL PT (9.0-12.0) Seconds INR (0.9-1.1) APTT (21.0-31.0) Seconds PTT Ratio Sodium 139 (136-145) mmol/L Potassium 3.5 (3.5-5.1) mmol/L Chloride 103 (98-107) mmol/L Carbon Dioxide 26 (21-32) mmol/L Anion Gap 10.0 (3-11) BUN 21 H (7-18) mg/dl Creatinine 1.11 (0.6-1.2) mg/dl Est Cr Clr Drug Dosing Not Reportable Est GFR ( Amer) 59.9 Est GFR (Non-Af Amer) 51.7 BUN/Creatinine Ratio 19.3 (10-20) Glucose 122 H (70-99) mg/dl Calcium 11.4 H (8.5-10.1) mg/dl Phosphorus (2.5-4.9) mg/dl Magnesium 2.4 (1.8-2.4) mg/dl Total Bilirubin 0.7 (0.2-1) mg/dl AST 103 H (15-37) U/L ALT 23 (12-78) U/L Alkaline Phosphatase 135 H (45-117) U/L Total Protein 7.7 (6.4-8.2) gm/dl Albumin 2.3 L (3.4-5.0) gm/dl Globulin 5.4 H (2.5-4.0) gm/dl Albumin/Globulin Ratio 0.4 L (0.9-2) Lipase 59 L (73-393) U/L Procalcitonin (0-0.5) ng/ml PTH Intact Urine Color Dark Yellow Urine Appearance Turbid A (Clear) Urine pH 5.0 (4.5-7.5) Ur Specific [place] 1.023 (1.000-1.030) Urine Protein 1+ H (Negative) Urine Glucose (UA) Negative (Negative) Urine Ketones 1+ H (Negative) Urine Blood Negative (Negative) Urine Nitrite Negative (Negative) Urine Bilirubin Negative (Negative) Urine Urobilinogen Negative (Negative) Ur Leukocyte Esterase 1+ H (Negative) Urine WBC (Auto) 10-30 H (0-5) /hpf Urine RBC (Auto) 5-10 H (0-4) /hpf U Hyaline Cast (Auto) 10-30 H (0-5) /lpf U Epithel Cells (Auto) >30 H (0-5) /lpf Urine Bacteria (Auto) 4+ H (Negative) Granular Casts 5-10 H (0) /lpf 10/20/19 10/20/19 Range/Units 17:57 17:50 WBC 13.74 H (4.8-10.8) K/uL RBC 4.73 (4.2-5.4) M/uL Hgb 11.3 L (12.0-16.0) g/dL Hct 36.4 L (37-47) % MCV 77.0 L (80-100) fL MCH 23.9 L (25-34) pg MCHC 31.0 L (32-36) g/dL RDW Std Deviation 45.6 (36.4-46.3) fL RDW Coeff of Dahlia 16.5 H (11.5-14.5) % Plt Count 439 H (130-400) K/uL MPV 9.3 (7.4-10.4) fL Immature Gran % (Auto) 0.2 % Neut % (Auto) 84.0 % Lymph % (Auto) 9.3 % [place] % (Auto) 6.4 % Eos % (Auto) 0.0 % Baso % (Auto) 0.1 % Immature Gran # (Auto) 0.03 H (0.00-0.02) K/uL Neut # (Auto) 11.53 H (1.4-6.5) K/uL Lymph # (Auto) 1.28 (1.2-3.4) K/uL [place] # (Auto) 0.88 H (0.11-0.59) K/uL Eos # (Auto) 0.00 (0-0.5) K/uL Baso # (Auto) 0.02 (0-0.2) K/uL PT 13.0 H (9.0-12.0) Seconds INR 1.2 H (0.9-1.1) APTT 21.7 (21.0-31.0) Seconds PTT Ratio 0.8 Sodium (136-145) mmol/L Potassium (3.5-5.1) mmol/L Chloride (98-107) mmol/L Carbon Dioxide (21-32) mmol/L Anion Gap (3-11) BUN (7-18) mg/dl Creatinine (0.6-1.2) mg/dl Est Cr Clr Drug Dosing Est GFR ( Amer) Est GFR (Non-Af Amer) BUN/Creatinine Ratio (10-20) Glucose (70-99) mg/dl Calcium (8.5-10.1) mg/dl Phosphorus (2.5-4.9) mg/dl Magnesium (1.8-2.4) mg/dl Total Bilirubin (0.2-1) mg/dl AST (15-37) U/L ALT (12-78) U/L Alkaline Phosphatase (45-117) U/L Total Protein (6.4-8.2) gm/dl Albumin (3.4-5.0) gm/dl Globulin (2.5-4.0) gm/dl Albumin/Globulin Ratio (0.9-2) Lipase (73-393) U/L Procalcitonin (0-0.5) ng/ml PTH Intact Urine Color Urine Appearance (Clear) Urine pH (4.5-7.5) Ur Specific [place] (1.000-1.030) Urine Protein (Negative) Urine Glucose (UA) (Negative) Urine Ketones (Negative) Urine Blood (Negative) Urine Nitrite (Negative) Urine Bilirubin (Negative) Urine Urobilinogen (Negative) Ur Leukocyte Esterase (Negative) Urine WBC (Auto) (0-5) /hpf Urine RBC (Auto) (0-4) /hpf U Hyaline Cast (Auto) (0-5) /lpf U Epithel Cells (Auto) (0-5) /lpf Urine Bacteria (Auto) (Negative) Granular Casts (0) /lpf Medications Administered Current Inpatient Medications Acetaminophen (Tylenol) 325 mg PO Q6H PRN PRN Reason: Mild Pain Stop: 11/19/19 23:30 Heparin Sodium/Dextrose (Heparin Sodium/Dextrose) 25,000 units in 500 mls @ 25 mls/hr IV .Q20H [facility]; Protocol Stop: 11/19/19 21:14 Last Titration: 10/21/19 06:45 Dose: 1,500 units/hr, 30 mls/hr Documented by: Promethazine HCl 12.5 mg/ (Sodium Chloride) 50.5 mls @ 202 mls/hr IV Q6H PRN PRN Reason: Nausea And Vomiting Stop: 11/19/19 23:30 Lorazepam (Ativan) 0.25 mg in 0.5 mls @ 0.5 mls/min IV Q4H PRN PRN Reason: Anxiety Stop: 11/19/19 23:30 Lactated Ringer's (Lr) 1,000 mls @ 100 mls/hr IV .Q10H ONE Stop: 10/21/19 15:29 Last Admin: 10/21/19 05:42 Dose: 100 mls/hr Documented by: Lisinopril (Zestril) 20 mg PO QAM JUN Stop: 11/20/19 08:59 Morphine Sulfate (Morphine Sulfate) 4 mg IV Q4H PRN PRN Reason: Pain Stop: 11/03/19 23:30 Multivitamins/Minerals (Multivitamin W/ Minerals Tab) 1 tab PO QPM JUN Stop: 11/20/19 20:59 Tramadol HCl (Ultram) 25 - 50 mg PO Q4H PRN PRN Reason: Pain Stop: 11/19/19 23:30
[2019-10-21] MEDS: lisinopriL 20 MG TAB PO SCH (07:50)
--- NOTE | 2019-10-21 10:11 | Ultrasound Report ---
ULTRASOUND BILATERAL LOWER EXTREMITY VENOUS CLINICAL HISTORY: Pulmonary embolus. COMPARISON STUDY: No priors. TECHNIQUE: Real-time, grayscale, and color Doppler sonography of the deep veins of the right and left lower extremity was performed from the inguinal crease to the calf. Compression and augmentation wer e utilized. FINDINGS: There is no sonographic evidence of deep venous thrombosis identified in the right or left lower extremity. The common femoral, superficial femoral, and popliteal veins are patent and normally compressible bilaterally. The greater saphenous vein and the profunda femoris vein at the junction w ith the common femoral vein are clear in both legs. The visualized calf veins are patent bilaterally. IMPRESSION: There is no sonographic evidence of deep venous thrombosis identified in the right or lef t lower extremity. ACT 112: Negative or not required by law. Electronically signed by: Wellington Valentino M.D. 10/21/2019 10:10 AM
[2019-10-21 12:40] LABS: Partial Thromboplastin Ratio 1.5; Partial Thromboplastin Time 40.8 Seconds (21.0-31.0)
[2019-10-21] MEDS: HEPARIN SODIUM/DEXTROSE 25,000 UNITS/500 ML BAG IV SCH (15:18)
--- NOTE | 2019-10-21 17:43 | XRay Report ---
SINGLE VIEW CHEST CLINICAL HISTORY: Tachypnea. FINDINGS: An AP, portable, upright chest radiograph is correlated with chest CT dated 10/20/2019. The e xamination is degraded by portable technique and patient rotation. The cardiomediastinal silhouette is unremarkable. A hiatal hernia is noted. There is elevation of the right hemidiaphragm. There is r ight basilar atelectasis and a small right pleural effusion. Mild atelectasis is also seen in the lef t lung base. No pneumothorax is seen. The skeletal structures are osteopenic. The bony thorax is eric sly intact. IMPRESSION: 1. No significant change from yesterday. There is persistent elevation of the right hemidiaphragm wit h associated atelectasis and pleural effusion. 2. Small hiatal hernia. ACT 112: Negative or not required by law. Electronically signed by: Wellington Valentino M.D. 10/21/2019 5:41 PM
[2019-10-21] MEDS ORDERED: FAMOTIDINE 10 MG TABLET PO ONE (20:18)
[2019-10-21 20:20] LABS: Partial Thromboplastin Ratio 2.1
[2019-10-21 20:26] LABS: Partial Thromboplastin Time 59.9 Seconds (21.0-31.0)
[2019-10-21] MEDS: CEROVITE ADV FORMULA TAB PO SCH (21:02)
--- NOTE | 2019-10-21 22:06 | Electrocardiogram Report ---
Test Reason : Blood Pressure : / mmHG Vent. Rate : 095 BPM Atrial Rate : 095 BPM P-R Int : 108 ms QRS Dur : 070 ms QT Int : 330 ms P-R-T Axes : 079 079 096 degrees QTc Int : 414 ms Sinus rhythm with short DC with Premature supraventricular complexes Nonspecific T wave abnormality Abnormal ECG No previous ECGs available Confirmed by Bhavesh Ovalle ([id number]) on 10/21/2019 10:06:35 PM Referred By: REFERRED SELF Confirmed By:Bhavesh Ovalle
[2019-10-22] MEDS ORDERED: BENZONATATE 100 MG CAPSULE PO PRN (00:01)
--- NOTE | 2019-10-22 00:06 | Communication Note ---
Date of Service: October 22, 2019
[2019-10-22] MEDS ORDERED: LORATADINE 10 MG TAB PO ONE (00:12)
--- NOTE | 2019-10-22 00:13 | Communication Note ---
Date of Service: October 22, 2019 Made aware by RN of patient request for antitussive prn for chronic cough symptoms productive of clear, white sputum. Symptoms for years as per patient (even before lisinopril Rx initiation) Denies reflux symptoms. AP Chronic cough ? Allergic component Loratadine trial Will relay to AM provider.
[2019-10-22] MEDS ORDERED: DOXYCYCLINE HYCLATE 100 MG CAP PO SCH (00:15)
[2019-10-22] MEDS ORDERED: COUGH DROP (SUGAR FREE) LOZ 24 LOZ/1 BOX BUCCAL ONE (00:33)
[2019-10-22] MEDS ORDERED: COUGH DROP (SUGAR FREE) LOZ 24 LOZ/1 BOX BUCCAL PRN (00:36)
[2019-10-22] MEDS: HEPARIN SODIUM/DEXTROSE 25,000 UNITS/500 ML BAG IV SCH ×3 (05:10→18:03)
[2019-10-22 06:18] LABS: Hematocrit (blood only) 31.5 % (37-47); Hemoglobin 9.3 g/dL (12.0-16.0); Mean Corpuscular Hemoglobin 22.6 pg (25-34); Mean Corpuscular Hgb Conc 29.5 g/dL (32-36); Mean Corpuscular Volume 76.6 fL (80-100); Mean Platelet Volume 9.4 fL (7.4-10.4); Platelet Count 380 K/uL (130-400); RDW Coefficient of Variation 16.6 % (11.5-14.5); RDW Standard Deviation 45.8 fL (36.4-46.3); Red Blood Count 4.11 M/uL (4.2-5.4); White Blood Count 11.67 K/uL (4.8-10.8)
[2019-10-22 06:43] LABS: Partial Thromboplastin Ratio 1.6
[2019-10-22 06:45] LABS: Partial Thromboplastin Time 45.4 Seconds (21.0-31.0)
[2019-10-22 06:51] LABS: Albumin Level 1.8 gm/dl (3.4-5.0); BUN Creatinine Ratio 22.1 (10-20); Calcium 9.9 mg/dl (8.5-10.1); Creatinine Clr Calc Pharmacy 80.8 ml/min; Est GFR (African American) 97.8; Est GFR (Non-African American) 84.4; Magnesium 2.3 mg/dl (1.8-2.4); Potassium 3.2 mmol/L (3.5-5.1)
[2019-10-22 07:01] LABS: Albumin Globulin Ratio 0.4 (0.9-2); Bilirubin,Total 0.6 mg/dl (0.2-1); Globulin 4.4 gm/dl (2.5-4.0); Total Protein 6.2 gm/dl (6.4-8.2)
[2019-10-22] MEDS ORDERED: POTASSIUM CHLORIDE 20 MEQ TABCR PO STA (07:07)
[2019-10-22] MEDS ORDERED: HEPARIN IV BOLUS 3,000 UNITS in SYRINGE 0 ML IV ONE (07:15)
[2019-10-22 07:25] LABS: Phosphorus 2.2 mg/dl (2.5-4.9)
[2019-10-22] MEDS: lisinopriL 20 MG TAB PO SCH (08:09)
[2019-10-22] MEDS ORDERED: POTASSIUM PHOS 3 MMOL/1 ML INFUSION IV STA (09:26)
[2019-10-22] MEDS ORDERED: POTASSIUM PHOSPHATE 9 MMOL in SODIUM CHLORIDE 0.9% 250 ML IV ONE (10:00)
--- NOTE | 2019-10-22 10:06 | Hospitalist Progress Note ---
Date of Service October 22, 2019 Assessment & Plan (1) Breast nodule: Incidental finding on chest CT PE Concern for malignancy Discussed with Dr. Vincent, hematology/oncology, no inpatient work-up at this time, recommend outpatient work-up Discussed with the patient, she is aware and in agreement -will need mammogram, likely breast surgeon consult, etc. (2) Liver mass: Incidental finding on imaging in ED Concern for malignancy Patient reports having colonoscopies that were unremarkable, history of polyp that was not malignant Per patient, father had colon cancer with metastasis to liver Recommended MRI of liver which was obtained today, and confirmed large liver mass. Liver mass biopsy, currently planned for tomorrow, Wednesday10/23/2019 Patient aware and agrees with the procedure Patient is currently on IV heparin for her PE, heparin will need to be stopped early in the morning 10/23/2019 (plan to stop at 4 AM) (3) Uterine cancer: Hx of uterine cancer status post hysterectomy/radiation (about 5 years ago) Patient says she had procedure done at [facility] in [place], [place] (4) Pulmonary embolism: On admission, seemingly unprovoked event Patient states she has been at home, and may have been sitting more than usual, however there are also incidental findings on imaging, breast nodule and liver mass, concerning for malignancy, and therefore possible hypercoagulable state Dopplers of lower extremities ordered, negative for DVT Hypercoagulable work-up as ordered by ER provider prior to IV heparin initiation. Incidental finding of right breast nodule rule out malignancy (? predisposing factor to clot) and also incidental finding of liver mass Medical telemetry IV heparin Outpatient Surgery consultation regarding right breast nodule Consider Hematology opinion Re: Unprovoked PE Discussed with Dr. Vincent (hematology/ oncology) recommends to switch to Eliquis on discharge, and further work-up of breast nodule (when talked to Dr. Vincent, did not have information about liver mass yet) Patient received information on Eliquis, and coupon from (5) Hypercalcemia: Calcium now in normal level PTH low 11.1 Calcium decreased after IV fluids Continue to monitor, check phosphorus May need additional hypercalcemia lab work/may need Nephrology eval Hypercalcemia secondary to mild clinical dehydration vs possible malignancy Hypokalemia, hypophosphatemia - Replace and monitor - May be secondary to IV fluids Hx diastolic dysfunction, patient on the dry side on admission HTN, stable Chronic anemia, hemoglobin at baseline Asymptomatic pyuria, no sepsis Hyperglycemia rule out DM Check hemoglobin A1c DVT prophylaxis. IV heparin Full code. Admission and Anticipated Discharge Date Admission Date: October 20, 2019 Subjective Patient is lying in bed, in no acute distress, on IV heparin. She says that her breathing is better since she got here. The liver MRI obtained this morning, shows large liver mass. Plan for liver biopsy tomorrow by radiology. Plan to hold IV heparin at 4 AM tomorrow. She denies any fevers, chills, chest pain, dizziness or headedness. She also denies any abdominal pain nausea or vomiting. Review of Systems Review of Systems: All systems reviewed & are unremarkable except as noted in HPI & below Constitutional: no fever and no chills Respiratory: no cough and no dyspnea Cardiovascular: no chest pain and no palpitations Gastrointestinal: no abdominal pain, no nausea and no vomiting Physical Exam Physical Exam: GENERAL: Elderly obese female, sitting up in bed, does not appear in acute distress HEENT: Normocephalic, atraumatic, EOMI, PERRL NECK : Supple, no tenderness CHEST : CTAB, no wheezing or rhonchi, or crackles noted HEART : RRR (HR in low 90s), no obvious murmurs ABDOMEN: Normal bowel sounds, soft, obese, some distention, nontender to palpation EXTREMITIES : Minimal LE swelling, no LE tenderness, moves extremities spontaneously SKIN: warm, dry NEUROLOGIC : Alert and oriented x3, no facial asymmetry, speech fluent, moves extremities spontaneously Results & Data Results & Data ([facility]) Vital Signs (Past 12 Hours) Vital Signs Temp Pulse Pulse Resp BP BP Pulse Ox 10/22/19 07:58 89 10/22/19 07:54 36.9 C 88 20 112/71 93 10/22/19 04:06 37.2 C 94 H 20 117/77 93 10/22/19 00:40 96 H 10/21/19 23:08 37.3 C 95 H 20 113/76 93 Laboratory Results 10/22/19 10/22/19 10/22/19 Range/Units 09:43 05:40 05:40 WBC 11.67 H (4.8-10.8) K/uL RBC 4.11 L (4.2-5.4) M/uL Hgb 9.3 L (12.0-16.0) g/dL Hct 31.5 L (37-47) % MCV 76.6 L (80-100) fL MCH 22.6 L (25-34) pg MCHC 29.5 L (32-36) g/dL RDW Std Deviation 45.8 (36.4-46.3) fL RDW Coeff of Dahlia 16.6 H (11.5-14.5) % Plt Count 380 (130-400) K/uL MPV 9.4 (7.4-10.4) fL APTT (21.0-31.0) Seconds PTT Ratio LA PTT Screen Protein C Activity Protein S Activity Antithrombin III Activ Factor V Leiden Mutat Factor V Leiden Interp Sodium 141 (136-145) mmol/L Potassium 3.2 L (3.5-5.1) mmol/L Chloride 107 (98-107) mmol/L Carbon Dioxide 26 (21-32) mmol/L Anion Gap 8.0 (3-11) BUN 16 (7-18) mg/dl Creatinine 0.74 (0.6-1.2) mg/dl Est Cr Clr Drug Dosing 80.8 ml/min Est GFR ( Amer) 97.8 Est GFR (Non-Af Amer) 84.4 BUN/Creatinine Ratio 22.1 H (10-20) Glucose 107 H (70-99) mg/dl Calcium 9.9 (8.5-10.1) mg/dl Phosphorus 2.2 L (2.5-4.9) mg/dl Magnesium 2.3 (1.8-2.4) mg/dl Total Bilirubin 0.6 (0.2-1) mg/dl AST 94 H (15-37) U/L ALT 22 (12-78) U/L Alkaline Phosphatase 112 (45-117) U/L Ammonia Pending Total Protein 6.2 L (6.4-8.2) gm/dl Albumin 1.8 L (3.4-5.0) gm/dl Globulin 4.4 H (2.5-4.0) gm/dl Albumin/Globulin Ratio 0.4 L (0.9-2) Homocysteine Beta-2-GPI IgG Ab Beta-2-GPI IgA Ab Beta-2-GPI IgM Ab Anti-Cardiolipin IgG Ab Anti-Cardiolipin IgA Ab Anti-Cardiolipin IgM Ab Prothrombin Gene Mutate Prothromb Gene Comment 10/22/19 10/21/19 10/21/19 Range/Units 05:40 20:09 19:54 WBC (4.8-10.8) K/uL RBC (4.2-5.4) M/uL Hgb (12.0-16.0) g/dL Hct (37-47) % MCV (80-100) fL MCH (25-34) pg MCHC (32-36) g/dL RDW Std Deviation (36.4-46.3) fL RDW Coeff of Dahlia (11.5-14.5) % Plt Count (130-400) K/uL MPV (7.4-10.4) fL APTT 45.4 H* 59.9 H* (21.0-31.0) Seconds PTT Ratio 1.6 2.1 LA PTT Screen Protein C Activity Protein S Activity Antithrombin III Activ Factor V Leiden Mutat Factor V Leiden Interp Sodium (136-145) mmol/L Potassium (3.5-5.1) mmol/L Chloride (98-107) mmol/L Carbon Dioxide (21-32) mmol/L Anion Gap (3-11) BUN (7-18) mg/dl Creatinine (0.6-1.2) mg/dl Est Cr Clr Drug Dosing ml/min Est GFR ( Amer) Est GFR (Non-Af Amer) BUN/Creatinine Ratio (10-20) Glucose (70-99) mg/dl Calcium (8.5-10.1) mg/dl Phosphorus 1.8 L (2.5-4.9) mg/dl Magnesium (1.8-2.4) mg/dl Total Bilirubin (0.2-1) mg/dl AST (15-37) U/L ALT (12-78) U/L Alkaline Phosphatase (45-117) U/L Ammonia Total Protein (6.4-8.2) gm/dl Albumin (3.4-5.0) gm/dl Globulin (2.5-4.0) gm/dl Albumin/Globulin Ratio (0.9-2) Homocysteine Beta-2-GPI IgG Ab Beta-2-GPI IgA Ab Beta-2-GPI IgM Ab Anti-Cardiolipin IgG Ab Anti-Cardiolipin IgA Ab Anti-Cardiolipin IgM Ab Prothrombin Gene Mutate Prothromb Gene Comment 10/21/19 10/20/19 10/20/19 Range/Units 12:20 22:03 22:03 WBC (4.8-10.8) K/uL RBC (4.2-5.4) M/uL Hgb (12.0-16.0) g/dL Hct (37-47) % MCV (80-100) fL MCH (25-34) pg MCHC (32-36) g/dL RDW Std Deviation (36.4-46.3) fL RDW Coeff of Dahlia (11.5-14.5) % Plt Count (130-400) K/uL MPV (7.4-10.4) fL APTT 40.8 H (21.0-31.0) Seconds PTT Ratio 1.5 LA PTT Screen Pending Protein C Activity Pending Protein S Activity Pending Antithrombin III Activ Pending Factor V Leiden Mutat Pending Factor V Leiden Interp Pending Sodium (136-145) mmol/L Potassium (3.5-5.1) mmol/L Chloride (98-107) mmol/L Carbon Dioxide (21-32) mmol/L Anion Gap (3-11) BUN (7-18) mg/dl Creatinine (0.6-1.2) mg/dl Est Cr Clr Drug Dosing ml/min Est GFR ( Amer) Est GFR (Non-Af Amer) BUN/Creatinine Ratio (10-20) Glucose (70-99) mg/dl Calcium (8.5-10.1) mg/dl Phosphorus (2.5-4.9) mg/dl Magnesium (1.8-2.4) mg/dl Total Bilirubin (0.2-1) mg/dl AST (15-37) U/L ALT (12-78) U/L Alkaline Phosphatase (45-117) U/L Ammonia Total Protein (6.4-8.2) gm/dl Albumin (3.4-5.0) gm/dl Globulin (2.5-4.0) gm/dl Albumin/Globulin Ratio (0.9-2) Homocysteine Pending Beta-2-GPI IgG Ab Pending Beta-2-GPI IgA Ab Pending Beta-2-GPI IgM Ab Pending Anti-Cardiolipin IgG Ab Pending Anti-Cardiolipin IgA Ab Pending Anti-Cardiolipin IgM Ab Pending Prothrombin Gene Mutate Pending Prothromb Gene Comment Pending Medications Administered Current Inpatient Medications Acetaminophen (Tylenol) 325 mg PO Q6H PRN PRN Reason: Mild Pain Stop: 11/19/19 23:30 Benzonatate (Tessalon Perle) 100 mg PO TID PRN PRN Reason: Cough Stop: 11/21/19 00:00 Last Admin: 10/22/19 00:38 Dose: 100 mg Documented by: Heparin Sodium/Dextrose (Heparin Sodium/Dextrose) 25,000 units in 500 mls @ 38 mls/hr IV .[id number] [facility]; Protocol Stop: 11/19/19 21:14 Last Titration: 10/22/19 06:58 Dose: 1,900 units/hr, 38 mls/hr Documented by: Promethazine HCl 12.5 mg/ (Sodium Chloride) 50.5 mls @ 202 mls/hr IV Q6H PRN PRN Reason: Nausea And Vomiting Stop: 11/19/19 23:30 Lorazepam (Ativan) 0.25 mg in 0.5 mls @ 0.5 mls/min IV Q4H PRN PRN Reason: Anxiety Stop: 11/19/19 23:30 Potassium Phosphate 9 mmol/ (Sodium Chloride) 253 mls @ 88 mls/hr IV ONE ONE Stop: 10/22/19 12:52 Last Admin: 10/22/19 09:50 Dose: 88 mls/hr Documented by: Lisinopril (Zestril) 20 mg PO QAM [facility] Stop: 11/20/19 08:59 Last Admin: 10/22/19 08:09 Dose: 20 mg Documented by: Menthol (Nice) 1 obi BUCCAL PRN PRN PRN Reason: NURSING DECISION Stop: 11/21/19 00:35 Morphine Sulfate (Morphine Sulfate) 4 mg IV Q4H PRN PRN Reason: Pain Stop: 11/03/19 23:30 Multivitamins/Minerals (Multivitamin W/ Minerals Tab) 1 tab PO QPM [facility] Stop: 11/20/19 20:59 Last Admin: 10/21/19 21:02 Dose: 1 tab Documented by: Potassium Chloride (Klor-Con M20) 40 meq PO ONE ONE Stop: 10/22/19 11:01 Tramadol HCl (Ultram) 25 - 50 mg PO Q4H PRN PRN Reason: Pain Stop: 11/19/19 23:30
[2019-10-22] MEDS ORDERED: POTASSIUM CHLORIDE 20 MEQ TABCR PO ONE (11:00)
[2019-10-22] MEDS ORDERED: GADOXETATE DISODIUM IV PRN (13:25)
--- NOTE | 2019-10-22 13:50 | Magnetic Resonance Report ---
MR abdomen wo/w con CLINICAL HISTORY: Liver mass. COMPARISON STUDY: CT 10/20/2019. TECHNIQUE: MRI of the abdomen is performed transverse T1 and T2-weighted sequences in the axial and c oronal planes. Contrast enhanced sequences were acquired following the IV administration of . FINDINGS: Near nondiagnostic study due to considerable respiratory and somatic motion. The limited obtained images demonstrate a large heterogeneous mass occupying the bulk of the right he patic lobe. This mass measures approximately 16 x 15 x 13 cm. There is a low density necrotic process at its superior and inferior aspects. Characterization is difficult due to the artifact present. There is partial postcontrast enhancement. Remainder the study is of limited/no diagnostic utility. IMPRESSION: 1. MRI of the abdomen is extraordinarily limited technically due to patient respiratory and somatic m otion. 2. It does confirm the presence of a large heterogeneous mass process of the right hepatic lobe. 3. A neoplastic process is the diagnosis of exclusion. 4. The remainder the study is of no diagnostic utility. ACT 112: Negative or not required by law. The above report was generated using voice recognition software. It may contain grammatical, syntax or spelling errors. Electronically signed by: Teto Levine M.D. 10/22/2019 1:49 PM
[2019-10-22 15:49] LABS: Partial Thromboplastin Ratio 1.2; Partial Thromboplastin Time 32.6 Seconds (21.0-31.0)
[2019-10-22] MEDS ORDERED: HEPARIN IV BOLUS 5,000 UNITS in SYRINGE 0 ML IV ONE (16:15)
[2019-10-22] MEDS ORDERED: HEPARIN SODIUM/DEXTROSE 25,000 UNITS/500 ML BAG IV SCH (17:45)
[2019-10-22] MEDS ORDERED: cefTRIAXone SODIUM 2,000 MG in DEXTROSE 5% 50 ML IV SCH (18:00)
[2019-10-22] MEDS: CEROVITE ADV FORMULA TAB PO SCH (20:31)
[2019-10-22 23:04] LABS: Partial Thromboplastin Ratio 2.4
[2019-10-22 23:13] LABS: Partial Thromboplastin Time 66.4 Seconds (21.0-31.0)
[2019-10-23 06:20] LABS: Hematocrit (blood only) 32.3 % (37-47); Hemoglobin 9.8 g/dL (12.0-16.0); Mean Corpuscular Hemoglobin 23.4 pg (25-34); Mean Corpuscular Hgb Conc 30.3 g/dL (32-36); Mean Corpuscular Volume 77.1 fL (80-100); Mean Platelet Volume 9.9 fL (7.4-10.4); Platelet Count 356 K/uL (130-400); RDW Coefficient of Variation 16.8 % (11.5-14.5); RDW Standard Deviation 46.8 fL (36.4-46.3); Red Blood Count 4.19 M/uL (4.2-5.4)
[2019-10-23 06:34] LABS: Partial Thromboplastin Ratio 1.1; Partial Thromboplastin Time 31.3 Seconds (21.0-31.0)
[2019-10-23 07:06] LABS: Albumin Globulin Ratio 0.4 (0.9-2); Albumin Level 1.8 gm/dl (3.4-5.0); BUN Creatinine Ratio 19.4 (10-20); Bilirubin,Total 0.6 mg/dl (0.2-1); Calcium 9.6 mg/dl (8.5-10.1); Creatinine Clr Calc Pharmacy 81.8 ml/min; Est GFR (African American) 99.5; Est GFR (Non-African American) 85.8; Globulin 4.7 gm/dl (2.5-4.0); Magnesium 1.8 mg/dl (1.8-2.4); Phosphorus 2.4 mg/dl (2.5-4.9); Potassium 4.1 mmol/L (3.5-5.1); Total Protein 6.5 gm/dl (6.4-8.2)
[2019-10-23 07:07] LABS: Estimated Average Glucose 131 mg/dl; Hemoglobin A1C 6.2 % (4.5-5.6)
--- NOTE | 2019-10-23 08:50 | Hospitalist Progress Note ---
Date of Service October 23, 2019 Assessment & Plan (1) Breast nodule: Incidental finding on chest CT PE Concern for malignancy Discussed with Dr. Vincent, hematology/oncology, no inpatient work-up at this time, recommend outpatient work-up Discussed with the patient, she is aware and in agreement -will need mammogram, likely breast surgeon consult, etc. (2) Liver mass: Incidental finding on imaging in ED Concern for malignancy Patient reports having colonoscopies that were unremarkable, history of polyp that was not malignant Per patient, father had colon cancer with metastasis to liver Recommended MRI of liver which was obtained and confirmed large liver mass. Pt is now s/p Liver mass biopsy 10/23/2019 - IV heparin was stopped early in the morning prior to her procedure. -Follow up on biopsy results per PCP (3) Uterine cancer: Hx of uterine cancer status post hysterectomy/radiation (about 5 years ago) Patient says she had procedure done at [facility] in [place], [place] (4) Pulmonary embolism: On admission, seemingly unprovoked event Patient states she has been at home, and may have been sitting more than usual, however there are also incidental findings on imaging, breast nodule and liver mass, concerning for malignancy, and therefore possible hypercoagulable state Dopplers of lower extremities ordered, negative for DVT Hypercoagulable work-up as ordered by ER provider prior to IV heparin initiation. Medical telemetry IV heparin Outpatient Surgery consultation regarding right breast nodule Consider Hematology opinion Re: Unprovoked PE Discussed with Dr. Vincent (hematology/ oncology) recommends to switch to Eliquis on discharge, and further work-up of breast nodule (when talked to Dr. Vincent, did not have information about liver mass yet) Patient received information on Eliquis, and coupon from (5) Hypercalcemia: Calcium now in normal level PTH low 11.1 Calcium decreased after IV fluids Continue to monitor, check phosphorus May need additional hypercalcemia lab work/may need Nephrology eval Hypercalcemia secondary to mild clinical dehydration vs possible malignancy Hypokalemia, hypophosphatemia - Replace and monitor - May be secondary to IV fluids Microcytic anemia -seems chronic per chart review - per pt had colonoscopies in the past, which were overall unremarkable - pt's father hx of colon ca w/ mets to liver - will need outpt work-up/ endoscopies Prediabetes - hemoglobin A1c 6.2% - monitor BSG while inpt - follow up as outpt Asymptomatic pyuria, no sepsis - clarified w/ the pt, pt denies any symptoms of dysuria - stop Abx Hx diastolic dysfunction, patient on the dry side on admission HTN, stable DVT prophylaxis. IV heparin (stopped this AM prior to procedure) Full code. Admission and Anticipated Discharge Date Admission Date: October 20, 2019 Subjective Pt is s/p ultrasound-guided liver biopsy. Tolerated procedure well. No erythema or edema, or ecchymosis at the procedure site. Pt reports she is little sore there. Otherwise denies any fever, chills, chest pain, increased shortness of breath. Discussed that after discharge she will need to start taking Eliquis, and be seen by PCP for biopsy follow up and further work up. pt understands and agrees with the plan. Review of Systems Review of Systems: All systems reviewed & are unremarkable except as noted in HPI & below Constitutional: no fever and no chills Respiratory: no cough and no dyspnea Cardiovascular: no chest pain and no palpitations Gastrointestinal: no abdominal pain, no nausea and no vomiting Physical Exam Physical Exam: GENERAL: Elderly obese female, sitting up in bed, does not appear in acute distress HEENT: Normocephalic, atraumatic, EOMI, PERRL NECK : Supple, no tenderness CHEST : CTAB, no wheezing or rhonchi, or crackles noted HEART : RRR (HR in low 90s), no obvious murmurs ABDOMEN: Normal bowel sounds, soft, obese, some distention, nontender to palpation EXTREMITIES : Minimal LE swelling, no LE tenderness, moves extremities spontaneously SKIN: warm, dry NEUROLOGIC : Alert and oriented x3, no facial asymmetry, speech fluent, moves extremities spontaneously Results & Data Results & Data ([facility]) Vital Signs (Past 12 Hours) Vital Signs Temp Pulse Resp BP BP Pulse Ox 10/23/19 07:18 36.8 C 116 H 20 128/85 92 10/23/19 04:00 37.0 C 100 H 18 127/84 94 10/23/19 00:00 37.0 C 102 H 18 116/66 94 Laboratory Results 10/23/19 10/23/19 10/23/19 Range/Units 05:40 05:40 05:40 WBC 11.10 H (4.8-10.8) K/uL RBC 4.19 L (4.2-5.4) M/uL Hgb 9.8 L (12.0-16.0) g/dL Hct 32.3 L (37-47) % MCV 77.1 L (80-100) fL MCH 23.4 L (25-34) pg MCHC 30.3 L (32-36) g/dL RDW Std Deviation 46.8 H (36.4-46.3) fL RDW Coeff of Dahlia 16.8 H (11.5-14.5) % Plt Count 356 (130-400) K/uL MPV 9.9 (7.4-10.4) fL APTT (21.0-31.0) Seconds PTT Ratio Sodium 140 (136-145) mmol/L Potassium 4.1 D (3.5-5.1) mmol/L Chloride 109 H (98-107) mmol/L Carbon Dioxide 26 (21-32) mmol/L Anion Gap 5.0 (3-11) BUN 14 (7-18) mg/dl Creatinine 0.73 (0.6-1.2) mg/dl Est Cr Clr Drug Dosing 81.8 ml/min Est GFR ( Amer) 99.5 Est GFR (Non-Af Amer) 85.8 BUN/Creatinine Ratio 19.4 (10-20) Glucose 95 (70-99) mg/dl Estimat Average Glucose 131 mg/dl Hemoglobin A1c 6.2 H (4.5-5.6) % Calcium 9.6 (8.5-10.1) mg/dl Phosphorus 2.4 L (2.5-4.9) mg/dl Magnesium 1.8 (1.8-2.4) mg/dl Total Bilirubin 0.6 (0.2-1) mg/dl AST 99 H (15-37) U/L ALT 27 (12-78) U/L Alkaline Phosphatase 133 H (45-117) U/L Ammonia (11-32) umol/L Total Protein 6.5 (6.4-8.2) gm/dl Albumin 1.8 L (3.4-5.0) gm/dl Globulin 4.7 H (2.5-4.0) gm/dl Albumin/Globulin Ratio 0.4 L (0.9-2) 10/23/19 10/22/19 10/22/19 Range/Units 05:40 22:35 15:33 WBC (4.8-10.8) K/uL RBC (4.2-5.4) M/uL Hgb (12.0-16.0) g/dL Hct (37-47) % MCV (80-100) fL MCH (25-34) pg MCHC (32-36) g/dL RDW Std Deviation (36.4-46.3) fL RDW Coeff of Dahlia (11.5-14.5) % Plt Count (130-400) K/uL MPV (7.4-10.4) fL APTT 31.3 H 66.4 H* 32.6 H (21.0-31.0) Seconds PTT Ratio 1.1 2.4 1.2 Sodium (136-145) mmol/L Potassium (3.5-5.1) mmol/L Chloride (98-107) mmol/L Carbon Dioxide (21-32) mmol/L Anion Gap (3-11) BUN (7-18) mg/dl Creatinine (0.6-1.2) mg/dl Est Cr Clr Drug Dosing ml/min Est GFR ( Amer) Est GFR (Non-Af Amer) BUN/Creatinine Ratio (10-20) Glucose (70-99) mg/dl Estimat Average Glucose mg/dl Hemoglobin A1c (4.5-5.6) % Calcium (8.5-10.1) mg/dl Phosphorus (2.5-4.9) mg/dl Magnesium (1.8-2.4) mg/dl Total Bilirubin (0.2-1) mg/dl AST (15-37) U/L ALT (12-78) U/L Alkaline Phosphatase (45-117) U/L Ammonia (11-32) umol/L Total Protein (6.4-8.2) gm/dl Albumin (3.4-5.0) gm/dl Globulin (2.5-4.0) gm/dl Albumin/Globulin Ratio (0.9-2) 10/22/19 Range/Units 09:43 WBC (4.8-10.8) K/uL RBC (4.2-5.4) M/uL Hgb (12.0-16.0) g/dL Hct (37-47) % MCV (80-100) fL MCH (25-34) pg MCHC (32-36) g/dL RDW Std Deviation (36.4-46.3) fL RDW Coeff of Dahlia (11.5-14.5) % Plt Count (130-400) K/uL MPV (7.4-10.4) fL APTT (21.0-31.0) Seconds PTT Ratio Sodium (136-145) mmol/L Potassium (3.5-5.1) mmol/L Chloride (98-107) mmol/L Carbon Dioxide (21-32) mmol/L Anion Gap (3-11) BUN (7-18) mg/dl Creatinine (0.6-1.2) mg/dl Est Cr Clr Drug Dosing ml/min Est GFR ( Amer) Est GFR (Non-Af Amer) BUN/Creatinine Ratio (10-20) Glucose (70-99) mg/dl Estimat Average Glucose mg/dl Hemoglobin A1c (4.5-5.6) % Calcium (8.5-10.1) mg/dl Phosphorus (2.5-4.9) mg/dl Magnesium (1.8-2.4) mg/dl Total Bilirubin (0.2-1) mg/dl AST (15-37) U/L ALT (12-78) U/L Alkaline Phosphatase (45-117) U/L Ammonia 52.5 H (11-32) umol/L Total Protein (6.4-8.2) gm/dl Albumin (3.4-5.0) gm/dl Globulin (2.5-4.0) gm/dl Albumin/Globulin Ratio (0.9-2) Medications Administered Current Inpatient Medications Acetaminophen (Tylenol) 325 mg PO Q6H PRN PRN Reason: Mild Pain Stop: 11/19/19 23:30 Benzonatate (Tessalon Perle) 100 mg PO TID PRN PRN Reason: Cough Stop: 11/21/19 00:00 Last Admin: 10/22/19 00:38 Dose: 100 mg Documented by: Gadoxetate Disodium (Eovist) 10 ml IV ONCE PRN PRN Reason: Interaction Checking Stop: 10/26/19 13:24 Last Admin: 10/22/19 13:25 Dose: 10 ml Documented by: Promethazine HCl 12.5 mg/ (Sodium Chloride) 50.5 mls @ 202 mls/hr IV Q6H PRN PRN Reason: Nausea And Vomiting Stop: 11/19/19 23:30 Lorazepam (Ativan) 0.25 mg in 0.5 mls @ 0.5 mls/min IV Q4H PRN PRN Reason: Anxiety Stop: 11/19/19 23:30 Last Admin: 10/22/19 12:17 Dose: 0.5 mls/min Documented by: Ceftriaxone Sodium 2,000 mg/ (Dextrose) 70 mls @ 140 mls/hr IV Q24H [facility]; Protocol Stop: 10/27/19 17:59 Last Infusion: 10/22/19 18:44 Dose: Infused Documented by: Lisinopril (Zestril) 20 mg PO QAM [facility] Stop: 11/20/19 08:59 Last Admin: 10/22/19 08:09 Dose: 20 mg Documented by: Menthol (Nice) 1 obi BUCCAL PRN PRN PRN Reason: NURSING DECISION Stop: 11/21/19 00:35 Morphine Sulfate (Morphine Sulfate) 4 mg IV Q4H PRN PRN Reason: Pain Stop: 11/03/19 23:30 Multivitamins/Minerals (Multivitamin W/ Minerals Tab) 1 tab PO QPM [facility] Stop: 11/20/19 20:59 Last Admin: 10/22/19 20:31 Dose: 1 tab Documented by: Tramadol HCl (Ultram) 25 - 50 mg PO Q4H PRN PRN Reason: Pain Stop: 11/19/19 23:30
[2019-10-23] MEDS ORDERED: MAGNESIUM SULFATE / D5W 1 GM/100 ML BAG IV ONE (09:30)
[2019-10-23] MEDS: lisinopriL 20 MG TAB PO SCH (10:54)
--- NOTE | 2019-10-23 12:06 | Ultrasound Report ---
ULTRASOUND-GUIDED FINE-NEEDLE ASPIRATION OF A RIGHT HEPATIC LOBE MASS HISTORY: liver mass COMPARISON: Abdominal MRI 10/22/2019. PROCEDURE: Written informed consent was obtained. The right upper quadrant was prepped and draped in the usual sterile fashion. 1% lidocaine was used for local anesthesia. A total of one pass using a 22 -gauge Deon needle was made through right hepatic lobe mass under ultrasound guidance. Specimens w ere given to the on-site pathologist who determined adequate tissue for diagnosis. The patient tolera jasmine the procedure well. There were no immediate locations. IMPRESSION: Successful ultrasound-guided fine-needle aspiration of a right hepatic lobe mass. ACT 112: Negative or not required by law. Electronically signed by: Filiberto Parmar M.D. 10/23/2019 12:04 PM
--- NOTE | 2019-10-23 16:38 | Discharge Summary ---
Date of Service October 23, 2019 Admission HPI Per Admitting Provider History obtained from patient and records. Medical history significant for diastolic dysfunction as per records (EF of 70%, TTE 2013), hypertension, uterine cancer status post surgery/radiation, chronic anemia (baseline hemoglobin of hemoglobin of 10 from 2013 as per records). Few days history of achy right flank/right subcostal pain with shortness of breath usually on exertion. Denies dysuria/hematuria symptoms. Legs a little more swollen than usual as per patient. No fever, no chills, no cough. No recent history of prolonged travel or being bedbound by illness. At the ER, IV heparin started for pulmonary embolism on CT. No prior episodes in the past. No known family history as per patient. Medical History as above Has not had mammograms for many years now due to concerns about "false positives". Colonoscopy 2018 showed polyps, internal hemorrhoids, diverticulosis Surgical History : D&C, LUTHER Family History : Lung cancer, colon cancer, diabetes; no blood clots Personal/Social history : Non-smoker, no EtOH intake, retired [employer] employee Admission Exam Per Admitting Provider GENERAL: Slightly anxious, obese, no respiratory distress SKIN: Pallor , warm HEENT: Bespectacled, pale palpebral conjunctivae, no ptosis, dry buccal mucosa NECK : Supple, no tenderness CHEST : CTA, no tenderness HEART : RRR, no obvious murmurs ABDOMEN: Some distention, nontender EXTREMITIES : Minimal LE swelling, no LE tenderness, no other conspicuous deformities noted NEUROLOGIC : Coherent, no facial asymmetry, intention tremors Principal Diagnosis Pulmonary embolism Liver mass Breast nodule Discharge Exam GENERAL: Elderly obese female, sitting up in bed, does not appear in acute distress HEENT: Normocephalic, atraumatic, EOMI, PERRL NECK : Supple, no tenderness CHEST : CTAB, no wheezing or rhonchi, or crackles noted HEART : RRR (HR in low 90s), no obvious murmurs ABDOMEN: Normal bowel sounds, soft, obese, some distention, nontender to palpation EXTREMITIES : Minimal LE swelling, no LE tenderness, moves extremities spontaneously SKIN: warm, dry NEUROLOGIC : Alert and oriented x3, no facial asymmetry, speech fluent, moves extremities spontaneously Discharge Data Allergies Allergy/AdvReac Type Severity Reaction Status Date / Time No Known Allergies Allergy Verified 10/20/19 18:40 Consultations 10/20/19 21:23 ED Decision to Admit Stat Ordered Studies 10/20/19 17:52 CT abd pelvis wo con Stat IMPRESSION: 1. Hepatic steatosis and moderate hepatomegaly 2. No evidence of bowel obstruction. No evidence of free air 3. Normal appendix. No evidence of acute diverticulitis 4. No renal, ureteral, or bladder calculi identified 5. 1 cm right breast nodule 6. Small right pleural effusion. Right middle lobe and right lower lobe airspace opacities, likely atelectatic ADDENDUM ADDENDUM: In addition to the above findings, there is a large low-attenuation infiltrative mass lesion largely replacing the right hepatic lobe. This measures at least 15 cm in maximum dimension. This is confirmed on the contrast-enhanced chest CT performed the same day. Neoplasm is the diagnosis of exclusion. A pathologically enlarged right cardiophrenic lymph node is seen on image #[id number] and measures 1.7 x 1.0 cm. Findings were discussed with Dr. Pisano on 10/20/2017: 00. 10/20/19 20:19 CT angio chest PE protocol Stat IMPRESSION: 1. Acute bilateral pulmonary embolism 2. Small right pleural effusion 3. Right lower lobe airspace opacities likely atelectatic 4. Hepatomegaly. Unusual enhancement pattern of the liver. An MRI the liver is recommended in follow-up. 10/21/19 08:51 US venous doppler LE BI Routine 10/22/19 09:01 MR abdomen wo/w con Routine IMPRESSION: 1. MRI of the abdomen is extraordinarily limited technically due to patient respiratory and somatic motion. 2. It does confirm the presence of a large heterogeneous mass process of the right hepatic lobe. 3. A neoplastic process is the diagnosis of exclusion. 4. The remainder the study is of no diagnostic utility. 10/23/19 09:00 US FNA w/img 1st lesion Routine IMPRESSION: Successful ultrasound-guided fine-needle aspiration of a right hepatic lobe mass. Hospital Course (1) Breast nodule: Incidental finding on chest CT PE Concern for malignancy Discussed with Dr. Vincent, hematology/oncology, no inpatient work-up at this time, recommend outpatient work-up Discussed with the patient, she is aware and in agreement -will need mammogram, likely breast surgeon consult, etc. (2) Liver mass: Incidental finding on imaging in ED Concern for malignancy Patient reports having colonoscopies that were unremarkable, history of polyp that was not malignant Per patient, father had colon cancer with metastasis to liver Recommended MRI of liver which was obtained and confirmed large liver mass. Pt is now s/p Liver mass biopsy 10/23/2019 - IV heparin was stopped early in the morning prior to her procedure. -Follow up on biopsy results per PCP (3) Uterine cancer: Hx of uterine cancer status post hysterectomy/radiation (about 5 years ago) Patient says she had procedure done at [facility] in [place], [place] (4) Pulmonary embolism: On admission, seemingly unprovoked event Patient states she has been at home, and may have been sitting more than usual, however there are also incidental findings on imaging, breast nodule and liver mass, concerning for malignancy, and therefore possible hypercoagulable state Dopplers of lower extremities ordered, negative for DVT Hypercoagulable work-up as ordered by ER provider prior to IV heparin initiation. Medical telemetry IV heparin Outpatient Surgery consultation regarding right breast nodule Consider Hematology opinion Re: Unprovoked PE Discussed with Dr. Vincent (hematology/ oncology) recommends to switch to Eliquis on discharge, and further work-up of breast nodule (when talked to Dr. Vincent, did not have information about liver mass yet) Patient received information on Eliquis, and coupon from (5) Hypercalcemia: Calcium now in normal level PTH low 11.1 Calcium decreased after IV fluids Continue to monitor, check phosphorus May need additional hypercalcemia lab work/may need Nephrology eval Hypercalcemia secondary to mild clinical dehydration vs possible malignancy Hypokalemia, hypophosphatemia - Replace and monitor - May be secondary to IV fluids Microcytic anemia -seems chronic per chart review - per pt had colonoscopies in the past, which were overall unremarkable - pt's father hx of colon ca w/ mets to liver - will need outpt work-up/ endoscopies Prediabetes - hemoglobin A1c 6.2% - monitor BSG while inpt - follow up as outpt Asymptomatic pyuria, no sepsis - clarified w/ the pt, pt denies any symptoms of dysuria - stop Abx Hx diastolic dysfunction, patient on the dry side on admission HTN, stable DVT prophylaxis. IV heparin (stopped this AM prior to procedure) Full code. Total Time Total Time Spent Total Time Spent (In Minutes): 40 Total Time Includes: Examination of the Patient, Discharge Planning, Medication Reconciliation and Communication With Other Providers Discharge Plan Discharge Items Patient Disposition: Home - Self-Care Reason For Visit: PE Discharge Diagnosis: Pulmonary embolism Liver mass Breast nodule Activity: Per Instructions section Non-emergency contact: Primary Care Provider Call non-emergency contact if: you have any medication questions and your symptoms worsen Follow-up/Referrals: Artemio Narvaez MD [Primary Care Provider] - Diet: Regular Addtl Attending Provider Instructions: You will need to follow-up with your primary care provider within 1 week. Liver biopsy was obtained today, October 23, 2019, and results are pending. You will need to discuss with your primary care provider the results of the biopsy. You were diagnosed with pulmonary embolism, and will need to be on blood thinner, Eliquis. As discussed, start taking Eliquis tomorrow morning. Take 10 mg twice a day for 7 days, then take 5 mg twice a day. Discuss with your primary care doctor or mild disabilities teacher, how long you should be on this medication. You will also need to follow-up with primary care provider regarding your incidental finding of breast nodule. Pending Studies at Discharge: Yes Studies:: Liver biopsy Stand-Alone Forms: My [facility], Smoking Cessation Medications and DC Order Prescriptions: New Eliquis 5 mg (74 tabs) tablets,dose pack See Rx Instructions .ROUTE .COMPLEX Qty: 74 RF: 0 Continued lisinopril-hydrochlorothiazide 20-12.5 mg tablet 1 tab PO QPM RF: 0 cholecalciferol (vitamin D3) [Vitamin D3] 25 mcg (1,000 unit) Capsule 1,000 unit PO QPM RF: 0 Multivitamin 50 Plus Tablet 1 tab PO QPM RF: 0 coenzyme Q10 100 mg Capsule 100 mg PO QPM RF: 0 [id number] [krill oil] 1,713-250-12-80 mg Capsule 1 cap PO QPM RF: 0 Fiber Gummies 2 gram Tablet,Chewable 2 g PO QPM RF: 0 Probiotic Gummy 1 tab PO QPM RF: 0 Discontinued aspirin 81 mg Tablet,Delayed Release (Dr/Ec) 81 mg PO QPM RF: 0 Discharge Orders: Discharge Order (Routine); Ordered 10/23/19 Ordered By: Reno Singleton/Other Patient Handouts: Embolism Pulmonary, Embolism Pulmonary Dc, A1C Admission Data Admit Date/Time: 10/20/19 22:34 Attending Provider: Reno Pisano Admit Provider: Caleb Moreland Primary Care Provider: Artemio Narvaez Other Providers: Caleb Moreland Other Interventions: Discharge Summary Assessment (RN) Last Done: 10/23/19 16:52 DC Date/Time DO NOT enter until pt leaves facility: 10/23/19 17:25
[2019-10-31 08:27] LABS: Anti Cardiolipin Ab IgG <14 GPL; Anti Cardiolipin Ab IgM <12 MPL; Anti-Cardiolipin Ab IgA <11 APL
== END 2019-10-23 17:25 | disposition home or self-care (01) | DRG 176 ==
LOC: ED 16:10 → 2N 22:34

== ENCOUNTER 2019-11-07 14:07 | Inpatient (IN) ==
[2019-11-07] MEDS ORDERED: SODIUM CHLORIDE 0.9% 1000ML 1,000 ML IV ONE (15:13)
--- NOTE | 2019-11-07 15:41 | Emergency Department Note ---
Impression & Plan Hypercalcemia, Weakness ED Provider Note Provider: Luis Miguel Zapata MD DATE OF SERVICE: 11/07/2019 CHIEF COMPLAINT: Lab abnormality HISTORY OF PRESENT ILLNESS: Patient is a 64-year-old female with recent diagnosis of liver mass and pulmonary embolism on Eliquis presenting today referred from her outpatient powder carrier office due to hypercalcemia. Patient was found last to have a PE and liver masses. Patient states he has been weak and does not have much of an appetite but has been drinking liquids okay. States still some baseline shortness of breath but that has not really c hanged. Denies fever or muscle cramps. Denies confusion. Patient again states she was referred here by her outpatient powder carrier/oncologist Dr. Vincent for the hypocalcemia today. He does report some slight right upper quadrant pain that has been baseline according to her. Denies significant leg edema. REVIEW OF SYSTEMS: A total of 10 review of systems was obtained and negative except as stated above in the HPI. PAST MEDICAL HISTORY: As noted above MEDICATIONS: Reviewed medication list includes apixaban, lisinopril, hydrochlorothiazide SOCIAL HISTORY: Lives alone and no alcohol or drug use reported. PHYSICAL EXAM: GENERAL: alert and oriented in no acute distress on stretcher Head: normocephalic and atraumatic EYES: No injection, discharge or icterus. NECK: Trachea midline. Supple. ENT: Mucous membranes pink and moist. LUNGS: Airway patent. No retractions. Breath sounds clear HEART: Regular rate and rhythm. No chest wall tenderness ABDOMEN: Soft with some slight right upper quadrant tenderness. Not peritoneal. SKIN: Acyanotic, warm, dry, without rashes EXTREMITIES: Trace bilateral lower extremity edema NEUROLOGICAL: No focal deficits. No aphasia. No facial droop or slurred speech. Normal strength and tone in the extremities. Sensation to gross touch normal. EK bpm sinus rhythm with sinus arrhythmia, no ST segment elevation or depression. QTC 419. QRS normal duration. CONTINUOUS CARDIAC MONITORING: was ordered and showed a heart rate of 93 bpm in sinus rhythm with sinus arrhythmia Patient's hypertension was referred to the hospitalist HOSPITAL COURSE: [id number] Patient was first seen and H&P performed. 165 Patient reassessed and updated and I did discuss the patient's case with Dr. Vincent from oncology recommended zoledronic acid. Patient was agreeable for admission. [facility] hospitalist be contacted. Patient's laboratory studies and imaging reviewed. Differential includes Infection, dehydration, metabolic abnormality, hypo/hyperglycemia, electrolyte disturbance, anemia, hypoxia, cardiac sources, intracerebral event, toxicologic, neurologic, as well as other pathologies. IMPRESSION/MEDICAL DECISION MAKING: Patient reports generalized weakness and hypercalcemia on labs. These were rechecked; due to difficulty vascular access I placed an 18-gauge IV under ultrasound guidance in the left basilic vein with the patient's consent. There is good compressibility and no complication. Given some IV fluid hydration. Unfortunate case with newly diagnosed appears to be likely metastatic disease and currently on anticoagulation. Breathing is at baseline per her report and she states compliance with her anticoagulation. EKG without significant abnormality. Not having muscle cramping, acute confusion, or paresthesias. Laboratory studies confirm significant hypercalcemia of 12.7 here (improved from greater than 13 on the outpatient labs although corrected higher due to hypoalbuminemia). AST and alk phos mildly elevated similar to previous. TSH within normal limits. Discussed with her oncologist Dr. Vincent via phone. Given a liter IV fluids for some dilutional effect and again after discussion given a dose of 4 g of zoledronic acid to help sequester the calcium. Patient will be admitted further inpatient care and the patient was agreement with this. Her hypercalcemia and oncological process likely account for a fair amount of her generalized weakness complaints. DIAGNOSIS: Hypercalcemia, weakness DISPOSITION: Hospitalist will evaluate Patient was agreeable with this plan. Critical Care I have personally spent 32 minutes of critical care time in the direct management of this patient and her hypocalcemia. This includes bedside care, interpretation of diagnostic studies, and testing, discussion with consultants, patient, and family members, and other required patient management activities. These 32 minutes is in excess of all separately billable procedures. Past Med/Surg History Family History (Updated 11/07/19 @ 18:01 by Loren Warner PA-C) Brother Cancer Lung Father Cancer colon Mother Diabetes Social History (Updated 11/07/19 @ 17:59 by Loren Warner PA-C) Preferred Language: Croatian Communication Ability: Effective [employer] Required: No Beliefs That Will Affect Care: None Current Living Situation: Alone current occupational status: retired Other Information That Helps Us Care for You: No Feels Safe at Home: Yes Safety Concerns: Feels Safe At This Time Smoking Status: Never smoker Do You Dip or Chew Tobacco: No ; Hx Alcohol Use: Yes Alcohol type: beer, wine and hard liquor Hx Substance Use: No Allergies Allergies Allergy/AdvReac Type Severity Reaction Status Date / Time No Known Allergies Allergy Verified 11/07/19 16:39 Home Meds Home Medications Medication Instructions Recorded Confirmed Fiber Gummies 2 g PO QPM 10/20/19 11/07/19 Multivitamin 50 Plus 1 tab PO QPM 10/20/19 11/07/19 Probiotic Gummy 1 tab PO QPM 10/20/19 11/07/19 cholecalciferol (vitamin D3) 1,000 unit PO QPM 10/20/19 11/07/19 [Vitamin D3] coenzyme Q10 100 mg PO QPM 10/20/19 11/07/19 [id number] 1 cap PO QPM 10/20/19 11/07/19 [krill oil] lisinopril-hydrochlorothiazide 1 tab PO QPM 10/20/19 11/07/19 apixaban [Eliquis] 5 mg PO BID 11/07/19 11/07/19 Results & Data (ED) Vital Signs Vital Signs - 24 hr 11/07/19 14:16 11/07/19 15:56 Temperature 36.6 C Temperature Source Oral Pulse Rate 117 H Pulse Rate [Left Finger] 94 H Respiratory Rate 16 20 Respiratory Effort / Characteristics Non-Labored Respiratory Depth Normal Respiratory Pattern Regular Blood Pressure 110/76 Blood Pressure [Left Arm] 123/86 Blood Pressure Mean 87 Blood Pressure Mean [Left Arm] 98 Blood Pressure Position Sitting Pulse Oximetry 95 98 Oxygen Delivery Method Room Air Sepsis Recent Fever Within 48 Hours No Sepsis New/Unexplained Change in Mental Status No Sepsis Action Taken by Nursing No Action Required Laboratory Data Result diagrams: 11/07/19 15:35 11/07/19 19:50 Lab Results 11/07/19 11/07/19 11/07/19 Range/Units 15:35 15:35 15:35 WBC 15.46 H (4.8-10.8) K/uL RBC 4.42 (4.2-5.4) M/uL Hgb 10.3 L (12.0-16.0) g/dL Hct 34.1 L (37-47) % MCV 77.1 L (80-100) fL MCH 23.3 L (25-34) pg MCHC 30.2 L (32-36) g/dL RDW Std Deviation 49.3 H (36.4-46.3) fL RDW Coeff of Dahlia 17.7 H (11.5-14.5) % Plt Count 487 H (130-400) K/uL MPV 9.3 (7.4-10.4) fL Immature Gran % (Auto) 0.3 % Neut % (Auto) 85.4 % Lymph % (Auto) 8.2 % [place] % (Auto) 6.0 % Eos % (Auto) 0.0 % Baso % (Auto) 0.1 % Neut # (Auto) 13.21 H (1.4-6.5) K/uL Lymph # (Auto) 1.27 (1.2-3.4) K/uL [place] # (Auto) 0.92 H (0.11-0.59) K/uL Eos # (Auto) 0.00 (0-0.5) K/uL Baso # (Auto) 0.01 (0-0.2) K/uL Immature Gran # (Auto) 0.05 H (0.00-0.02) K/uL PT 14.6 H (9.0-12.0) Seconds INR 1.4 H (0.9-1.1) Sodium 138 (136-145) mmol/L Potassium 3.7 (3.5-5.1) mmol/L Chloride 103 (98-107) mmol/L Carbon Dioxide 26 (21-32) mmol/L Anion Gap 9.0 (3-11) BUN 21 H (7-18) mg/dl Creatinine 0.93 (0.6-1.2) mg/dl Est Cr Clr Drug Dosing Not Reportable Est GFR ( Amer) 74.2 Est GFR (Non-Af Amer) 64.0 BUN/Creatinine Ratio 22.4 H (10-20) Glucose 99 (70-99) mg/dl Calcium 12.7 H* (8.5-10.1) mg/dl Phosphorus 3.2 (2.5-4.9) mg/dl Magnesium 2.0 (1.8-2.4) mg/dl Total Bilirubin 0.8 (0.2-1) mg/dl AST 146 H (15-37) U/L ALT 23 (12-78) U/L Alkaline Phosphatase 167 H (45-117) U/L Total Protein 7.2 (6.4-8.2) gm/dl Albumin 2.1 L (3.4-5.0) gm/dl Globulin 5.1 H (2.5-4.0) gm/dl Albumin/Globulin Ratio 0.4 L (0.9-2) TSH 0.706 (0.300-4.500) uIu/ml Administered Medications Apixaban (Eliquis) 5 mg PO BID JUN Stop: 12/07/19 20:59 Last Admin: 11/07/19 20:04 Dose: 5 mg Documented by: [id number] Fish Oil ([place]-3 (Purified Fish Oil)) 1 gm PO QPM JUN Stop: 12/07/19 20:59 Last Admin: 11/07/19 20:04 Dose: 1 gm Documented by: [id number] Lisinopril/HCTZ (Prinzide 20/12.5mg) 1 tab PO QPM JUN Stop: 12/07/19 20:59 Last Admin: 11/07/19 20:04 Dose: 1 tab Documented by: [id number] Sodium Chloride (Nss 1000ml) 1,000 mls @ 125 mls/hr IV .Q8H JUN Stop: 12/07/19 17:59 Last Admin: 11/07/19 17:51 Dose: 125 mls/hr Documented by: [id number] Discontinued Medications Calcitonin [place] (Calcimar) 330 units SQ ONE ONE Stop: 11/07/19 20:47 Last Admin: 11/07/19 21:10 Dose: 330 units Documented by: [id number] Furosemide (Lasix) 20 mg IV NOW STA Stop: 11/07/19 17:42 Last Admin: 11/07/19 18:02 Dose: Not Given Documented by: [id number] Furosemide (Lasix) Confirm Administered Dose 40 mg IV .STK-MED ONE Stop: 11/07/19 17:48 Last Admin: 11/07/19 17:51 Dose: 20 mg Documented by: [id number] Furosemide (Lasix) 20 mg IV ONE ONE Stop: 11/07/19 21:01 Last Admin: 11/07/19 20:04 Dose: 20 mg Documented by: [id number] Sodium Chloride (Nss 1000ml) 1,000 mls @ 999 mls/hr IV .Q1H1M ONE Stop: 11/07/19 16:13 Last Infusion: 11/07/19 17:27 Dose: 0 mls/hr Documented by: [id number] Admin: 11/07/19 15:59 Dose: 999 mls/hr Documented by: [id number] Zoledronic Acid 4 mg/ Sodium (Chloride) 105 mls @ 420 mls/hr IV TODAY@1700 ONE Stop: 11/07/19 17:14 Last Infusion: 11/07/19 18:44 Dose: 0 mls/hr Documented by: [id number] Admin: 11/07/19 17:27 Dose: 420 mls/hr Documented by: [id number] Sodium Chloride (Nss 1000ml) 1,000 mls @ 150 mls/hr IV .Q6H40M JUN Stop: 12/07/19 17:29 Last Admin: 11/07/19 18:44 Dose: Not Given Documented by: [id number] Potassium Chloride (Klor-Con M20) 40 meq PO NOW STA Stop: 11/07/19 18:57 Last Admin: 11/07/19 20:04 Dose: 40 meq Documented by: [id number] Discharge Plan Visit Data *Final* Discharge Date/Time: 11/07/19 18:40 Chief Complaint: Abnormal Labs/Diagnostic Testing Stated Complaint: HIGH CALCIUM, SENT BY ED Provider: Luis Miguel Zapata Discharge Problem: Hypercalcemia, Weakness Patient Disposition: Admitted As Inpatient Discharge Instructions Interventions: ED Discharge Assessment Last Done: 11/07/19 18:40
[2019-11-07 15:44] LABS: Basophils # (auto) 0.01 K/uL (0-0.2); Basophils % (auto) 0.1 %; Hematocrit (blood only) 34.1 % (37-47); Hemoglobin 10.3 g/dL (12.0-16.0); Immature Granulocytes # (auto) 0.05 K/uL (0.00-0.02); Immature Granulocytes % (auto) 0.3 %; Lymphocytes # (auto) 1.27 K/uL (1.2-3.4); Lymphocytes % (auto) 8.2 %; Mean Corpuscular Hemoglobin 23.3 pg (25-34); Mean Corpuscular Hgb Conc 30.2 g/dL (32-36); Mean Corpuscular Volume 77.1 fL (80-100); Mean Platelet Volume 9.3 fL (7.4-10.4); Monocytes # (auto) 0.92 K/uL (0.11-0.59); Neutrophils # (auto) 13.21 K/uL (1.4-6.5); Neutrophils % (auto) 85.4 %; Platelet Count 487 K/uL (130-400); RDW Coefficient of Variation 17.7 % (11.5-14.5); RDW Standard Deviation 49.3 fL (36.4-46.3); Red Blood Count 4.42 M/uL (4.2-5.4); White Blood Count 15.46 K/uL (4.8-10.8)
[2019-11-07 15:55] LABS: INR 1.4 (0.9-1.1); Prothrombin Time 14.6 Seconds (9.0-12.0)
[2019-11-07 16:14] LABS: Alanine Aminotransferase 23 U/L (12-78); Albumin Globulin Ratio 0.4 (0.9-2); Albumin Level 2.1 gm/dl (3.4-5.0); Alkaline Phosphatase 167 U/L (45-117); Aspartate Aminotransferase 146 U/L (15-37); BUN Creatinine Ratio 22.4 (10-20); Bilirubin,Total 0.8 mg/dl (0.2-1); Blood Urea Nitrogen 21 mg/dl (7-18); Calcium 12.7 mg/dl (8.5-10.1); Carbon Dioxide 26 mmol/L (21-32); Chloride 103 mmol/L (98-107); Est GFR (African American) 74.2; Globulin 5.1 gm/dl (2.5-4.0); Glucose 99 mg/dl (70-99); Phosphorus 3.2 mg/dl (2.5-4.9); Potassium 3.7 mmol/L (3.5-5.1); Sodium 138 mmol/L (136-145); Thyroid Stimulating Hormone 0.706 uIu/ml (0.300-4.500); Total Protein 7.2 gm/dl (6.4-8.2)
[2019-11-07] MEDS ORDERED: ZOLEDRONIC ACID 4 MG in 0.9 % SODIUM CHLORIDE 100 ML IV ONE (17:00)
[2019-11-07] MEDS ORDERED: SODIUM CHLORIDE 0.9% 1000ML 1,000 ML IV SCH (17:30)
[2019-11-07] MEDS ORDERED: FUROSEMIDE 40 MG/4 ML VIAL IV STA (17:41)
--- NOTE | 2019-11-07 17:43 | XRay Report ---
XR chest 1V portable CLINICAL HISTORY: absent breath sounds on right lower lung COMPARISON STUDY: 10/21/2019 FINDINGS: The cardiac and mediastinal contours remain stable. There is persistent elevation of the ri ght hemidiaphragmatic contour. This is felt to be secondary to an elevated right hemidiaphragm, small right pleural effusion, and right basilar atelectasis.[The left lung is clear IMPRESSION: 1. Persistent right basilar opacity which is felt to be secondary to an elevated right hemidiaphragm, small right pleural effusion, and right basilar atelectasis. ACT 112: Negative or not required by law. Electronically signed by: Waldo Heller M.D. 11/07/2019 5:41 PM
[2019-11-07] MEDS ORDERED: FUROSEMIDE 40 MG/4 ML VIAL IV ONE ×2 (17:47→21:00)
[2019-11-07] MEDS: SODIUM CHLORIDE 0.9% 1000ML 1,000 ML IV SCH (17:51)
--- NOTE | 2019-11-07 17:54 | History & Physical Report ---
Date of Service November 07, 2019 Assessment & Plan (1) Weakness: (2) Hypercalcemia: This is a 64-year-old female who has significant past medical history of HTN, HLD, diastolic dysfunction, history of endometrial carcinoma who presents to ED's at the referral of oncologist secondary to abnormal labs. In ED she remained hemodynamically stable, mildly tachycardic, heart rate 94. He was saturating well on room air. Lab abnormality notable for WBC 15.46, H&H 10.3 and 34.1, platelet 47, INR 1.4, K3.7, BUN 21, creatinine 0.93, calcium corrected 14.2, AST 146, ALT 167, albumin 2.1, TSH WNL. Chest x-ray reveals small right lower lobe pleural effusion and elevation of diaphragm. In ED she received 1 L of IVF along with 4 mg of zoledronic acid at the recommendation of Dr. Vincent. Admit to PCU Start IVF 125 cc/h consult nephrology - spoke to Dr. Malcolm Give Lasix IV 20 mg x 1 now and repeat 20 mg IV at 9 PM Repeat calcium at 8 PM, if corrected calcium greater than 13 Dr. Malcolm recommends SQ calcitonin 4 units/kg obtain UA, SPEP, UPEP, PTH, Vit D hydroxy, Parathyroid peptid, MINA r/o other etiology of hypercalcemia but likely underlying malignancy give 40meq KCL potassium x 1 now CBC, CMP, Mag, Phos, PT/INR in a.m. (3) Metastatic adenocarcinoma to liver: History of endometrial CA in 2012 status post resection and radiation Follows Dr. Vincent Recently hospitalized in October and incidentally found large liver mass and underwent FNA which revealed adenocarcinoma likely of gynecologic origin saw Dr. Vincent in follow up today and lab evaluation revealed hypercalcemia which prompted referral to ED (4) Hypoalbuminemia: Albumin 2.1 obtain albumin in a.m. Consult dietitian (5) Anemia: H&H stable at 10.3 and 34.1 No signs or symptoms of bleeding Microcytic hypochromic Iron studies done outpatient today, not yet resulted in epic would follow-up in a.m. (6) Leukocytosis: WBC 15.46k obtain UA C&S, CXR reveals small R pleural effusion but no apparent consolidation or pneumonia She is afebrile Question if in relation to malignancy -monitor Do not feel need to start antibiotics at this time (7) Elevated transaminase level: AST 146, alk phos 167 PT/INR 1.4 (on Eliquis but this should not affect this) Likely in setting of hepatic mets Repeat labs in a.m. (8) Pulmonary embolism: Continue Eliquis (9) HTN (hypertension): Blood pressure stable Continue lisinopril/HCTZ (10) DVT prophylaxis: Continue Eliquis Disposition: Admit to telemetry Follow-up: PCP Dr. Narvaez on discharge Patient was seen and examined in collaboration with Dr. Tellez, please see addendum History of Present Illness Chief Complaint: Referred by oncologist secondary to abnormal labs. Primary Care Provider: Artemio Narvaez MD This is a 64-year-old female who has significant past medical history of HTN, HLD, diastolic dysfunction, history of endometrial carcinoma who presents to ED's at the referral of oncologist secondary to abnormal labs. Of significance patient was hospitalized 10/19-10/22 secondary to newly diagnosed PE. She was started on Eliquis. Incidentally on imaging a liver mass was noted. She underwent further MRI evaluation which revealed right lobe of liver mass 16 x 15 x 13 and underwent FNA. Results deemed it to be metastatic endometrial carcinoma. She underwent follow-up with Dr. Vincent this afternoon, who she had previously seen in the past in regard to an endometrial CA in 2013. Lab evaluation during today's appointment revealed a serum elevated calcium which prompted ED referral. Over the past month she has noticed increased weakness, decreased appetite, change in taste and weight loss. Over the past 2 weeks she has lost an additional 7 pounds. She does live alone and does not require any ambulatory assist device. She denies any recent fever, chills, sweats, lightheadedness, dizziness, syncope, chest pain, shortness of breath, cough, nausea, vomiting, abdominal pain, dysuria increased urgency or frequency with urination, melena or hematochezia. Overall appetite has been significantly diminished. She denies any tremors, muscle cramps or rigidity. He has been compliant with her Eliquis. She also complains of intermittent right upper quadrant pain although currently this is absent. This is been present since diagnosis with liver metastasis. In ED she remained hemodynamically stable, mildly tachycardic, heart rate 94. He was saturating well on room air. Lab abnormality notable for WBC 15.46, H&H 10.3 and 34.1, platelet 47, INR 1.4, K3.7, BUN 21, creatinine 0.93, calcium corrected 14.2, AST 146, ALT 167, albumin 2.1, TSH WNL. Chest x-ray reveals small right lower lobe pleural effusion and elevation of diaphragm. In ED she received 1 L of IVF along with 4 mg of zoledronic acid at the recommendation of Dr. Vincent. Allergies Allergy/AdvReac Type Severity Reaction Status Date / Time No Known Allergies Allergy Verified 11/07/19 16:39 Home Medications Home Medications Medication Instructions Recorded Confirmed Type Fiber Gummies 2 g PO QPM 10/20/19 11/07/19 History Multivitamin 50 Plus 1 tab PO QPM 10/20/19 11/07/19 History Probiotic Gummy 1 tab PO QPM 10/20/19 11/07/19 History cholecalciferol (vitamin D3) 1,000 unit PO QPM 10/20/19 11/07/19 History [Vitamin D3] coenzyme Q10 100 mg PO QPM 10/20/19 11/07/19 History teifa-ck-6-eur-psi-cetrlyc-ast 1 cap PO QPM 10/20/19 11/07/19 History [krill oil] lisinopril-hydrochlorothiazide 1 tab PO QPM 10/20/19 11/07/19 History apixaban [Eliquis] 5 mg PO BID 11/07/19 11/07/19 History Past Med/Surg History Family History (Updated 11/07/19 @ 18:01 by Loren Warner PA-C) Brother Cancer Lung Father Cancer colon Mother Diabetes Social History (Updated 11/07/19 @ 17:59 by Loren Warner PA-C) Preferred Language: Serbian Communication Ability: Effective 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 Beliefs That Will Affect Care: None Current Living Situation: Alone current occupational status: retired Other Information That Helps Us Care for You: No Feels Safe at Home: Yes Safety Concerns: Feels Safe At This Time Smoking Status: Never smoker Do You Dip or Chew Tobacco: No ; Hx Alcohol Use: Yes Alcohol type: beer, wine and hard liquor Hx Substance Use: No Review of Systems Review of Systems: All systems reviewed & are unremarkable except as noted in HPI & below Physical Exam Physical Exam: Constitutional: Chronically ill-appearing, female, sitting up in bed, pale, well-developed, vitals as above, NAD, pleasant, conversing easily Head: Normocephalic, Atraumatic Eyes: PERRL, conjunctivae normal, anicteric sclerae ENMT: external ear and nose normal, oropharynx normal dry membranes Neck: trachea midline, no thyromegaly normal visual inspection Respiratory: normal respiratory effort, lungs clear to auscultation, no wheeze, rales, rhonchi. Normal insp/exp effort, no accessory muscle use Cardiovascular: RRR, no murmur, no edema Vessels: no JVD or carotid bruit Chest: normal inspection of chest Abdomen: normal bowel sounds, soft, nontender, hepatomegaly noted Musculoskeletal: no cyanosis or clubbing, extremities motor strength 5/5, negative [place] sign Skin: no rashes, warm and dry moderate turgor Neurologic: PERRL, EOMI, accommodation nl, no face palsy, no dysarthria CN's II-XI intact bilaterally and moves all extremities Psychiatric: A+Ox3, euthymic affect Lymphatic: no cervical or axillary lymphadenopathy : deferred Results & Data Results & Data ([facility]) Vital Signs (Past 12 Hours) Vital Signs Temp Pulse Pulse Resp BP BP Pulse Ox 11/07/19 15:56 94 H 20 123/86 98 11/07/19 14:16 36.6 C 117 H 16 110/76 95 Laboratory Results Short CBC 11/07/19 Range/Units 15:35 WBC 15.46 H (4.8-10.8) K/uL Hgb 10.3 L (12.0-16.0) g/dL Hct 34.1 L (37-47) % Plt Count 487 H (130-400) K/uL BMP 11/07/19 15:35 Sodium 138 Potassium 3.7 Chloride 103 Carbon Dioxide 26 BUN 21 H Creatinine 0.93 Glucose 99 Calcium 12.7 H* Liver Function 11/07/19 Range/Units 15:35 Total Bilirubin 0.8 (0.2-1) mg/dl AST 146 H (15-37) U/L ALT 23 (12-78) U/L Alkaline Phosphatase 167 H (45-117) U/L Albumin 2.1 L (3.4-5.0) gm/dl Diagnostic Findings CXR: IMPRESSION: 1. Persistent right basilar opacity which is felt to be secondary to an elevated right hemidiaphragm, small right pleural effusion, and right basilar atelectasis. Medications Administered Discontinued Medications Furosemide (Lasix) Confirm Administered Dose 40 mg IV .STK-MED ONE Stop: 11/07/19 17:48 Last Admin: 11/07/19 17:51 Dose: 20 mg Documented by: [id number] Sodium Chloride (Nss 1000ml) 1,000 mls @ 999 mls/hr IV .Q1H1M ONE Stop: 11/07/19 16:13 Last Infusion: 11/07/19 17:27 Dose: 0 mls/hr Documented by: [id number] Admin: 11/07/19 15:59 Dose: 999 mls/hr Documented by: [id number] Zoledronic Acid 4 mg/ Sodium (Chloride) 105 mls @ 420 mls/hr IV TODAY@1700 ONE Stop: 11/07/19 17:14 Last Admin: 11/07/19 17:27 Dose: 420 mls/hr Documented by: [id number] ECG Rate (beats per minute): 88 Rhythm: normal sinus Findings: + nonspecific-ST abn (t wave inversion laterally ) and + PAC Additional Comments: shortened NE interval Code Status & VTE Plan Code Status Full Code VTE Prophylaxis Plan VTE Prophylaxis will be ordered: Yes Supervising Physician Co-Signing Physician Notes Patient is a 64-year-old female with history of hypertension, metastatic endometrial carcinoma and other medical problems was sent to ED by her oncologist for abnormal blood work--hypercalcemia. Patient is a poor historian. She admits to having poor appetite, and had weight loss. States having intermittent right upper quadrant abdominal discomfort. Feels tired. Please review HPI for complete details of presentation. Her blood work suggestive of hypercalcemia. She received IV fluids, Zometa while in ED. On exam patient is chronically appearing, no apparent distress, normocephalic atraumatic, lungs clear to auscultation, decreased breath sounds on right side, S1-S2, no murmur, abdomen soft, nontender, normal bowel sounds, no pedal edema, grossly no focal neurological deficits. Patient is admitted for management of hypercalcemia. Hypercalcemia likely secondary to metastatic disease. Also to rule out other causes of hypercalcemia. Will hold vitamin D supplements. Avoid calcium supplements as well. Will obtain hypercalcemia work-up including SPEP, PTH, vitamin D levels, parathyroid like peptide levels, MINA. Discussed with nephrology. Given Lasix 20 mg IV. Will recheck calcium levels closely. Will give additional Lasix if needed. Nephrology consulted. Leukocytosis likely secondary to metastatic disease. Also noted mild transaminitis--likely secondary to mets. Monitor LFTs. No antibiotics for now. I personally reviewed the record. Patient is interviewed and examined at bedside. Patient's care is coordinated with Loren Warner PA-C. Please refer to the documentation above for details of patient's presentation and for discussion of other issues.
[2019-11-07] MEDS ORDERED: POLYETHYLENE (MIRALAX) 17 GM PACK PO PRN (18:56)
[2019-11-07] MEDS ORDERED: ONDANSETRON INJ 2 MG/ML 2 ML VIAL IV PRN (18:56)
[2019-11-07] MEDS ORDERED: POTASSIUM CHLORIDE 20 MEQ TABCR PO STA (18:56)
[2019-11-07] MEDS: APIXABAN 5 MG TABLET PO SCH (20:04)
[2019-11-07] MEDS: OMEGA-3 (PURIFIED FISH OIL) 1 GM CAP PO SCH (20:04)
[2019-11-07 20:10] LABS: Appearance Urine Clear (Clear); Bacteria Urine Automated 1+ (Negative); Bilirubin Urine Negative (Negative); Blood Urine Negative (Negative); Color Urine Yellow; Epithelial Cell Urine Auto >30 /lpf (0-5); Glucose Urine UA Negative (Negative); Ketones Urine Negative (Negative); Leukocyte Esterase Urine Trace (Negative); Nitrite Urine Negative (Negative); Protein Urine Negative (Negative); RBC Urine Automated 0-4 /hpf (0-4); Specific Gravity Urine 1.015 (1.000-1.030); Urobilinogen Urine Negative (Negative)
[2019-11-07 20:31] LABS: BUN Creatinine Ratio 21.1 (10-20); Creatinine Clr Calc Pharmacy 57.6 ml/min; Est GFR (Non-African American) 58.7; Potassium 3.3 mmol/L (3.5-5.1); Prealbumin 9.9 mg/dl (20-40)
[2019-11-07 20:36] LABS: Calcium 12.9 mg/dl (8.5-10.1)
[2019-11-07] MEDS ORDERED: CALCITONIN SALMON 400 UNITS/2 ML SQ ONE (20:46)
[2019-11-07] MEDS ORDERED: NON-FORMULARY MEDICATION (Coenzyme Q10 100 MG) PO SCH (21:00)
[2019-11-07] MEDS ORDERED: LISINOPRIL/HCTZ 20/12.5MG 1 TAB TAB PO SCH (21:00)
[2019-11-08] MEDS: SODIUM CHLORIDE 0.9% 1000ML 1,000 ML IV SCH ×4 (02:39→20:20)
[2019-11-08 04:38] LABS: Basophils # (auto) 0.01 K/uL (0-0.2); Basophils % (auto) 0.1 %; Eosinophils # (auto) 0.01 K/uL (0-0.5); Eosinophils % (auto) 0.1 %; Hematocrit (blood only) 35.4 % (37-47); Hemoglobin 10.3 g/dL (12.0-16.0); Immature Granulocytes # (auto) 0.04 K/uL (0.00-0.02); Immature Granulocytes % (auto) 0.3 %; Lymphocytes # (auto) 1.22 K/uL (1.2-3.4); Lymphocytes % (auto) 8.5 %; Mean Corpuscular Hemoglobin 22.8 pg (25-34); Mean Corpuscular Hgb Conc 29.1 g/dL (32-36); Mean Corpuscular Volume 78.3 fL (80-100); Mean Platelet Volume 9.6 fL (7.4-10.4); Monocytes # (auto) 0.62 K/uL (0.11-0.59); Monocytes % (auto) 4.3 %; Neutrophils # (auto) 12.52 K/uL (1.4-6.5); Neutrophils % (auto) 86.7 %; Platelet Count 487 K/uL (130-400); RDW Coefficient of Variation 17.9 % (11.5-14.5); Red Blood Count 4.52 M/uL (4.2-5.4); White Blood Count 14.42 K/uL (4.8-10.8)
[2019-11-08 04:54] LABS: INR 1.5 (0.9-1.1); Prothrombin Time 15.4 Seconds (9.0-12.0)
[2019-11-08 05:22] LABS: BUN Creatinine Ratio 25.7 (10-20); Calcium 11.5 mg/dl (8.5-10.1); Creatinine Clr Calc Pharmacy 67.8 ml/min; Est GFR (African American) 82.8; Est GFR (Non-African American) 71.4; Magnesium 1.8 mg/dl (1.8-2.4); Potassium 3.5 mmol/L (3.5-5.1)
[2019-11-08 05:31] LABS: Albumin Globulin Ratio 0.4 (0.9-2); Globulin 4.8 gm/dl (2.5-4.0); Phosphorus 2.1 mg/dl (2.5-4.9); Total Protein 6.8 gm/dl (6.4-8.2)
[2019-11-08] MEDS: APIXABAN 5 MG TABLET PO SCH ×2 (07:50→20:19)
[2019-11-08] MEDS ORDERED: FUROSEMIDE 20 MG in SYRINGE 0 ML IV ONE (10:45)
--- NOTE | 2019-11-08 11:04 | Consultation Report ---
DATE OF CONSULTATION: 11/08/2019 REASON FOR CONSULT: Hypercalcemia. 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 Renal function was normal. Since admission, the patient was given IV zoledronic acid 4 mg as well as IV fluid as well as 1 dose of Lasix and calcitonin for the correction of hypercalcemia. Calcium is trending down and this morning it is already down to 11.5. Some other workup for hypercalcemia has also been sent. The patient is hemodynamically stable, although she feels weak. She is making urine, although I am not exactly sure how much urine she has made as she does not have Cooper catheter, but it seems she has made at least about 1.5 liters of urine since being admitted. She is not in any respiratory distress. It is worth noting that patient was admitted and discharged from the hospital just few weeks ago following an admission for congestive heart failure. ALLERGIES: None. HOME MEDICATIONS: List was reviewed in detail. Of special interest, patient is on vitamin D, lisinopril/hydrochlorothiazide as well as multiple other medications which was reviewed in detail. SOCIAL HISTORY: The patient is retired and lives alone. No smoking, no alcohol. FAMILY HISTORY: Negative for renal disease or any relevant problem. REVIEW OF SYSTEMS: Besides what is listed in HPI, no other systems was positive. She really did not have much symptoms at that admission was predominantly because of the abnormal labs. However, she does notice that she has been having progressive weakness and somewhat poor appetite for the last few weeks and is slowly getting worse. Denies nausea, vomiting, diarrhea, belly pain, chest pain, shortness of breath, orthopnea, PND, lower extremity edema. She has been having some weight loss. PAST MEDICAL AND SURGICAL HISTORY: Includes hypertension, hyperlipidemia, congestive heart failure diastolic type, history of endometrial carcinoma with metastasis to liver, history of pulmonary embolism on Eliquis. PHYSICAL EXAMINATION: GENERAL: Middle-aged white female who does appear to be weak and fatigued; however, she is awake, alert, oriented x3. She is not in any overt respiratory distress. VITAL SIGNS: Most recent vital signs show a blood pressure of 149/85, pulse rate 111, 96% on room air, respiratory rate 16 per minute, temperature 36.7. HEENT: Mucous membranes moist. CHEST: Bilateral clear to auscultation. CARDIOVASCULAR: S1, S2 regular. ABDOMEN: Soft, nontender. EXTREMITIES: Shows no edema. NEUROLOGIC: Awake, alert, oriented, moving all extremities. LABORATORY TESTS: Calcium was 14.2 as an outpatient; on admission was 12.7, this morning is down to 11.5, so it is trending in the right direction. Phosphorus is 2.1. Renal function normal. Elevated liver enzymes. Albumin level is 2.0, ionized calcium was 1.66 at the time of admission, WBC count 14,000, platelet count 487. Hemoglobin 10.3. Chest x-ray showed persistent right basilar opacity secondary to elevated right hemidiaphragm versus right pleural effusion versus atelectasis. ASSESSMENT AND PLAN: A 64-year-old female admitted with hypercalcemia. At this time, we will assume this hypercalcemia is related with her metastatic carcinoma which is well known cause to cause hypercalcemia. I have been consulted for hypercalcemia. At this time, she has normal renal function. She has already received appropriate treatment for hypercalcemia including IV zoledronic acid, calcitonin, IV fluid as well as Lasix. With this serum calcium is dropping very nicely and I expect the level to be essentially normal by tomorrow. I would continue the calcitonin until tomorrow. I would like to decrease the IV fluid to 100 mL per hour. Also, stop hydrochlorothiazide as it can add to the hypercalcemia problem. However, she can be continued on Lasix which will help with diuresis and bring calcium down faster. I would give 1 more dose of Lasix again, BMP can be done once daily at this time, as I expected to be improving fairly fast.
--- NOTE | 2019-11-08 13:03 | Electrocardiogram Report ---
Test Reason : Blood Pressure : / mmHG Vent. Rate : 095 BPM Atrial Rate : 095 BPM P-R Int : 108 ms QRS Dur : 080 ms QT Int : 334 ms P-R-T Axes : 067 047 -22 degrees QTc Int : 419 ms Sinus rhythm with short AL with Premature supraventricular complexes Possible Left atrial enlargement Cannot rule out Inferior infarct Abnormal ECG When compared with ECG of 21-OCT-2019 06:43, Borderline criteria for Inferior infarct are now Present Confirmed by Marcello Varghese ([id number]) on 11/08/2019 1:03:46 PM Referred By: Janeth Vincent Confirmed By:Marcello Varghese
--- NOTE | 2019-11-08 13:38 | Electrocardiogram Report ---
Test Reason : Blood Pressure : / mmHG Vent. Rate : 098 BPM Atrial Rate : 098 BPM P-R Int : 122 ms QRS Dur : 070 ms QT Int : 396 ms P-R-T Axes : 077 062 002 degrees QTc Int : 505 ms Normal sinus rhythm Cannot rule out Anterior infarct (cited on or before 07-NOV-2019) Abnormal ECG When compared with ECG of 07-NOV-2019 15:30, (unconfirmed) Premature supraventricular complexes are no longer Present Questionable change in initial forces of Anteroseptal leads QT has lengthened Confirmed by Marcello Varghese ([id number]) on 11/08/2019 1:38:07 PM Referred By: Janeth Vincent Confirmed By:Marcello Varghese
--- NOTE | 2019-11-08 14:57 | Ultrasound Report ---
BILATERAL LOWER EXTREMITY VENOUS DOPPLER HISTORY: Bilateral lower extremity edema, uterine cancer COMPARISON STUDY: None. FINDINGS: There is normal compressibility, flow, and augmentation within the bilateral lower extremit y deep venous systems. IMPRESSION: No DVT within the right or left lower extremity. ACT 112: Negative or not required by law. Electronically signed by: Filiberto Parmar M.D. 11/08/2019 2:56 PM
[2019-11-08] MEDS: OMEGA-3 (PURIFIED FISH OIL) 1 GM CAP PO SCH (20:20)
--- NOTE | 2019-11-08 21:23 | Hospitalist Progress Note ---
Date of Service November 08, 2019 Assessment & Plan (1) Hypercalcemia: Calcium at time of admission 12.7. Nephrology consulted. 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 Received IV fluids, furosemide, calcitonin, zoledronic acid with improvement. Calcium today = 11.5. Follow. (2) Metastatic adenocarcinoma to liver: Recent biopsy of liver mass demonstrated adenocarcinoma consistent with metastatic endometrial carcinoma. Further management per Dr. Vincent. (3) Pulmonary embolism: Acute pulmonary embolism diagnosed by CTA chest 10/20/19. Continue apixaban. (4) HTN (hypertension): Continue lisinopril. (5) DVT prophylaxis: Continue apixaban. Ambulate. (6) Discharge planning issues: Anticipated discharge to home if functional status allows. Family Medicine follow-up with Dr. Narvaez. Hematology / Medical Oncology follow-up with Dr. Ronald Vincent. Admission and Anticipated Discharge Date Admission Date: November 07, 2019 Subjective Recheck for hypercalcemia and other problems. Patient seen in their room around 1300. Weak. Anorexic. No nausea / vomiting. Constipated. Review of Systems: Constitutional- no fever. Cardiac- no chest pain. Pulmonary- no cough or SOB. GI- as noted above. - no urinary symptoms. Otherwise, as noted above. Physical Exam Constitutional: + ill appearing; no acute distress Eyes: + anicteric sclerae Respiratory: no respiratory distress Auscultation: lungs clear to auscultation bilaterally Cardiovascular: Rate/Rhythm: regular rate and regular rhythm Vessels: no JVD Extremities: + edema (2+ pretibial); no calf tenderness Gastrointestinal (Abdomen): Inspection/Auscultation: normal bowel sounds Pe rcussion/Palpation: abdomen soft; abdomen nontender Musculoskeletal: Extremities: no cyanosis Skin: no rashes, warm and dry Psychiatric: Orientation: alert Results & Data Results & Data ([facility]) Vital Signs (Past 12 Hours) Vital Signs Temp Pulse Resp BP BP Pulse Ox 11/08/19 20:00 36.7 C 113 H 20 119/83 96 11/08/19 16:00 36.7 C 116 H 20 142/76 H 95 11/08/19 11:49 36.9 C 110 H 16 109/60 Laboratory Results Laboratory Results - last 24 hr 06/24/20 06/24/20 06/24/20 04:11 04:11 04:11 WBC 14.42 H RBC 4.52 Hgb 10.3 L Hct 35.4 L MCV 78.3 L MCH 22.8 L MCHC 29.1 L RDW Std Deviation 50.0 H RDW Coeff of Dahlia 17.9 H Plt Count 487 H MPV 9.6 Immature Gran % (Auto) 0.3 Neut % (Auto) 86.7 Lymph % (Auto) 8.5 [place] % (Auto) 4.3 Eos % (Auto) 0.1 Baso % (Auto) 0.1 Neut # (Auto) 12.52 H Lymph # (Auto) 1.22 [place] # (Auto) 0.62 H Eos # (Auto) 0.01 Baso # (Auto) 0.01 Immature Gran # (Auto) 0.04 H PT 15.4 H INR 1.5 H Sodium Potassium Chloride Carbon Dioxide Anion Gap BUN Creatinine Est Cr Clr Drug Dosing Est GFR ( Amer) Est GFR (Non-Af Amer) BUN/Creatinine Ratio Glucose Calcium Phosphorus Magnesium Total Bilirubin AST ALT Alkaline Phosphatase Total Protein Total Protein (PEP) Pending Albumin Albumin (PEP) Pending Globulin Albumin/Globulin Ratio Jnbzf-0-Vzwpgtnjc Pending Lazap-5-Ysdhtjwbe Pending Jrdo-9-Enkbuerm Pending Vksv-2-Byccrcvl Pending Gamma Globulins Pending Monoclonal Peak 3 Pending Ser Monoclonl Protein Pending Ser Monoclonal Prot 2 Pending PEP Interpretation Pending Angiotensin Convert Enz Pending PTH Related Protein Pending 11/08/19 04:11 WBC RBC Hgb Hct MCV MCH MCHC RDW Std Deviation RDW Coeff of Dahlia Plt Count MPV Immature Gran % (Auto) Neut % (Auto) Lymph % (Auto) [place] % (Auto) Eos % (Auto) Baso % (Auto) Neut # (Auto) Lymph # (Auto) [place] # (Auto) Eos # (Auto) Baso # (Auto) Immature Gran # (Auto) PT INR Sodium 143 Potassium 3.5 Chloride 108 H Carbon Dioxide 28 Anion Gap 7.0 BUN 22 H Creatinine 0.85 Est Cr Clr Drug Dosing 67.8 Est GFR ( Amer) 82.8 Est GFR (Non-Af Amer) 71.4 BUN/Creatinine Ratio 25.7 H Glucose 114 H Calcium 11.5 H Phosphorus 2.1 L D Magnesium 1.8 Total Bilirubin 1.0 AST 137 H ALT 22 Alkaline Phosphatase 154 H Total Protein 6.8 Total Protein (PEP) Albumin 2.0 L Albumin (PEP) Globulin 4.8 H Albumin/Globulin Ratio 0.4 L Lfogm-8-Ypoyhokce Ghmmh-3-Gqriuubbv Fsdw-2-Hfxatmah Auoy-3-Rswejqys Gamma Globulins Monoclonal Peak 3 Ser Monoclonl Protein Ser Monoclonal Prot 2 PEP Interpretation Angiotensin Convert Enz PTH Related Protein
[2019-11-09 05:02] LABS: BUN Creatinine Ratio 26.8 (10-20); Calcium 9.9 mg/dl (8.5-10.1); Creatinine Clr Calc Pharmacy 93.7 ml/min; Est GFR (African American) 109.5; Est GFR (Non-African American) 94.5
[2019-11-09] MEDS ORDERED: POTASSIUM CHLORIDE 20 MEQ TABCR PO ONE ×2 (06:13→09:30)
[2019-11-09] MEDS ORDERED: lisinopriL 20 MG TAB PO SCH (09:00)
--- NOTE | 2019-11-09 10:03 | Progress Notes ---
DATE: 11/09/2019 SUBJECTIVE: Overnight, no new issues. She continues to have poor appetite. She is getting IV fluid and calcium is getting pretty close to normal now. OBJECTIVE: VITAL SIGNS: Blood pressure 115/75, pulse rate 103, temperature 36.6, 93% on room air. HEENT: Mucous membranes moist. NECK: Supple. No jugular venous distention. CHEST: Bilaterally clear to auscultation. CARDIOVASCULAR: S1, S2, regular. ABDOMEN: Soft, nontender. EXTREMITIES: No edema. LABORATORY TESTS: From this morning reviewed and shows near normal calcium. Renal function normal. Potassium was low at 3.0. ASSESSMENT AND PLAN: A 64-year-old female with metastatic adenocarcinoma to liver and now admitted with critical hypercalcemia. Hypercalcemia is related with adenocarcinoma unless proved otherwise. With appropriate treatment that included IV fluids, Lasix, calcitonin and zoledronic acid, calcium is now near normal. I expect it to be completely normal by tomorrow. Continue IV fluid for today at a lower rate of 75 mL per hour. We will also give extra potassium on top of 20 she already received.
[2019-11-09] MEDS: APIXABAN 5 MG TABLET PO SCH ×2 (10:26→20:10)
[2019-11-09] MEDS: SODIUM CHLORIDE 0.9% 1000ML 1,000 ML IV SCH ×2 (10:27→18:28)
--- NOTE | 2019-11-09 19:00 | Hospitalist Progress Note ---
Date of Service November 09, 2019 Assessment & Plan (1) Hypercalcemia: Calcium at time of admission 12.7. Nephrology consulted. 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 PTH = 15. 25-OH D = 48. PTH related protein pending. SPEP pending. MINA pending. Received IV fluids, furosemide, calcitonin, zoledronic acid with improvement. Calcium today = 9.9. Ionized calcium = 1.33. Follow. (2) Metastatic adenocarcinoma to liver: Recent biopsy of liver mass demonstrated adenocarcinoma consistent with metastatic endometrial carcinoma. Further management per Dr. Vincent. (3) Pulmonary embolism: Acute pulmonary embolism diagnosed by CTA chest 10/20/19. Venous duplex lower extremities negative for DVT. Continue apixaban. (4) HTN (hypertension): HCTZ held because of hypercalcemia. BP's running low at times- hold lisinopril. Follow and titrate Rx. (5) Hypokalemia: K = 3.0. Replace. Follow. (6) Urinary tract infection: Urine culture growing Enterococcus faecalis. No fever or dysuria, but WBC elevated. Rx with amoxicillin. (7) DVT prophylaxis: Continue apixaban. Ambulate. (8) Discharge planning issues: Anticipated discharge to home if functional status allows. PT / OT evals. Family Medicine follow-up with Dr. Narvaez. Hematology / Medical Oncology follow-up with Dr. Ronald Vincent. Admission and Anticipated Discharge Date Admission Date: November 07, 2019 Subjective Recheck for hypercalcemia and other problems. Patient seen in their room around 1100. Feels a little better, but still very weak. Small emesis this morning without austin blood or coffee grounds. Still constipated. Review of Systems: Constitutional- no fever. Cardiac- no chest pain. Pulmonary- no cough or SOB. GI- as noted above. - no urinary symptoms. Otherwise, as noted above. Physical Exam Constitutional: + ill appearing; no acute distress Eyes: + anicteric sclerae Respiratory: no respiratory distress Auscultation: + diminished lung sounds (right base) Cardiovascular: Rate/Rhythm: regular rate and regular rhythm Vessels: no JVD Extremities: + edema (1-2+ pretibial); no calf tenderness Gastrointestinal (Abdomen): Inspection/Auscultation: normal bowel sounds Percussion/Palpation: abdomen soft; abdomen nontender Musculoskeletal: Extremities: no cyanosis Skin: no rashes, warm and dry Psychiatric: Orientation: alert Results & Data Results & Data ([facility]) Vital Signs (Past 12 Hours) Vital Signs Temp Pulse Pulse Resp BP Pulse Ox 11/09/19 16:10 89 11/09/19 15:23 36.3 C L 94 H 40 H 92/61 L 97 11/09/19 11:22 36.5 C 95 H 18 98/66 L 96 11/09/19 08:04 98 H 11/09/19 08:00 36.6 C 104 H 20 123/83 94 Laboratory Results Laboratory Results - last 24 hr 11/09/19 11/09/19 04:19 04:19 Sodium 145 Potassium 3.0 L Chloride 113 H Carbon Dioxide 25 Anion Gap 7.0 BUN 16 Creatinine 0.61 Est Cr Clr Drug Dosing 93.7 Est GFR ( Amer) 109.5 Est GFR (Non-Af Amer) 94.5 BUN/Creatinine Ratio 26.8 H Glucose 96 Calcium 9.9 Ionized Calcium 1.33 H
[2019-11-09] MEDS: AMOXICILLIN 500 MG CAP PO SCH (20:09)
[2019-11-09] MEDS: OMEGA-3 (PURIFIED FISH OIL) 1 GM CAP PO SCH (20:10)
--- NOTE | 2019-11-09 21:33 | Electrocardiogram Report ---
Test Reason : Blood Pressure : / mmHG Vent. Rate : 108 BPM Atrial Rate : 108 BPM P-R Int : 118 ms QRS Dur : 068 ms QT Int : 332 ms P-R-T Axes : 084 072 188 degrees QTc Int : 444 ms Sinus tachycardia with Premature atrial complexes Nonspecific T wave abnormality Abnormal ECG When compared with ECG of 08-NOV-2019 06:37, QT has shortened Premature atrial complexes are now Present Confirmed by Bhavesh Ovalle ([id number]) on 11/09/2019 9:32:49 PM Referred By: Janeth Vincent Confirmed By:Bhavesh Ovalle
[2019-11-10 07:39] LABS: Albumin Level 1.9 gm/dl (3.4-5.0); BUN Creatinine Ratio 28.8 (10-20); Calcium 9.5 mg/dl (8.5-10.1); Creatinine Clr Calc Pharmacy 102.5 ml/min; Est GFR (African American) 112.6; Est GFR (Non-African American) 97.2; Potassium 3.7 mmol/L (3.5-5.1)
[2019-11-10] MEDS: APIXABAN 5 MG TABLET PO SCH ×2 (07:44→20:27)
[2019-11-10] MEDS: AMOXICILLIN 500 MG CAP PO SCH ×3 (07:45→20:27)
[2019-11-10] MEDS ORDERED: POTASSIUM CHLORIDE 20 MEQ TABCR PO ONE (16:00)
[2019-11-10] MEDS: SODIUM CHLORIDE 0.9% 1000ML 1,000 ML IV SCH (17:26)
[2019-11-10] MEDS: POTASSIUM CHLORIDE 10 MEQ TABCR PO SCH (20:27)
[2019-11-10] MEDS: MAGNESIUM OXIDE 400 MG TAB PO SCH (20:28)
[2019-11-10] MEDS: OMEGA-3 (PURIFIED FISH OIL) 1 GM CAP PO SCH (20:28)
[2019-11-10] MEDS: POLYETHYLENE (MIRALAX) 17 GM PACK PO SCH (20:28)
--- NOTE | 2019-11-10 22:58 | Hospitalist Progress Note ---
Date of Service November 10, 2019 Assessment & Plan (1) Hypercalcemia: Calcium at time of admission 12.7. Nephrology consulted. 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 PTH = 15. 25-OH D = 48. PTH related protein pending. SPEP pending. MINA pending. Received IV fluids, furosemide, calcitonin, zoledronic acid with improvement. Calcium today = 9.5. Ionized calcium = 1.28. Follow. (2) Metastatic adenocarcinoma to liver: Recent biopsy of liver mass demonstrated adenocarcinoma consistent with metastatic endometrial carcinoma. Further management per Dr. Vincent. (3) Pulmonary embolism: Acute pulmonary embolism diagnosed by CTA chest 10/20/19. Venous duplex lower extremities negative for DVT. Continue apixaban. (4) HTN (hypertension): HCTZ held because of hypercalcemia. BP's running low at times- hold lisinopril. Follow and titrate Rx. (5) Hypokalemia: K as low as 3.0. K today = 3.7. Replace. Follow. (6) Urinary tract infection: Urine culture growing Enterococcus faecalis. No fever or dysuria, but WBC elevated. Rx with amoxicillin. (7) DVT prophylaxis: Continue apixaban. Ambulate. (8) Discharge planning issues: Anticipated discharge to home if functional status allows. PT / OT evals. Family Medicine follow-up with Dr. Narvaez. Hematology / Medical Oncology follow-up with Dr. Ronald Vincent. Admission and Anticipated Discharge Date Admission Date: November 07, 2019 Subjective Recheck for hypercalcemia and other problems. Patient seen in their room around 1530. Feels better every day. No further N/V. Still constipated. Minimal activity thus far. Review of Systems: Constitutional- no fever. Cardiac- no chest pain. Pulmonary- no cough or SOB. GI- as noted above. - no urinary symptoms. Otherwise, as noted above. Physical Exam Constitutional: + ill appearing; no acute distress Eyes: + anicteric sclerae Respiratory: no respiratory distress Auscultation: + diminished lung sounds (right base) Cardiovascular: Rate/Rhythm: regular rate and regular rhythm Vessels: no JVD Extremities: + edema (1-2+ pretibial); no calf tenderness Gastrointestinal (Abdomen): Inspection/Auscultation: normal bowel sounds Percussion/Palpation: abdomen soft; abdomen nontender Musculoskeletal: Extremities: no cyanosis Skin: no rashes, warm and dry Psychiatric: Orientation: alert Results & Data Results & Data ([facility]) Vital Signs (Past 12 Hours) Vital Signs Temp Pulse Pulse Resp BP Pulse Ox 11/10/19 19:18 36.4 C L 100 H 16 100/67 95 11/10/19 17:00 92 H 11/10/19 15:20 36.4 C L 101 H 18 105/75 97 11/10/19 12:00 89 11/10/19 11:36 36.5 C 87 16 106/71 94 Laboratory Results 11/10/19 06:52
[2019-11-10] MEDS: ACETAMINOPHEN 325 MG TAB PO PRN (23:54)
[2019-11-11 07:46] LABS: BUN Creatinine Ratio 31.3 (10-20); Calcium 8.9 mg/dl (8.5-10.1); Creatinine Clr Calc Pharmacy 115.6 ml/min; Est GFR (African American) 117.7; Est GFR (Non-African American) 101.5; Magnesium 1.8 mg/dl (1.8-2.4); Potassium 3.9 mmol/L (3.5-5.1)
[2019-11-11] MEDS: MAGNESIUM OXIDE 400 MG TAB PO SCH ×2 (08:20→20:11)
[2019-11-11] MEDS: POTASSIUM CHLORIDE 10 MEQ TABCR PO SCH ×2 (08:20→20:11)
[2019-11-11] MEDS: POLYETHYLENE (MIRALAX) 17 GM PACK PO SCH ×2 (08:21→20:12)
[2019-11-11] MEDS: APIXABAN 5 MG TABLET PO SCH ×2 (08:21→20:12)
[2019-11-11] MEDS: AMOXICILLIN 500 MG CAP PO SCH ×3 (08:21→20:12)
--- NOTE | 2019-11-11 18:56 | Hospitalist Progress Note ---
Date of Service November 11, 2019 Assessment & Plan (1) Hypercalcemia: Calcium at time of admission 12.7. Nephrology consulted. 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 PTH = 15. 25-OH D = 48. PTH related protein pending. SPEP pending. MINA pending. Received IV fluids, furosemide, calcitonin, zoledronic acid with improvement. Calcium today = 8.9. Follow. (2) Metastatic adenocarcinoma to liver: Recent biopsy of liver mass demonstrated adenocarcinoma consistent with metastatic endometrial carcinoma. Further management per Dr. Vincent. (3) Pulmonary embolism: Acute pulmonary embolism diagnosed by CTA chest 10/20/19. Venous duplex lower extremities negative for DVT. Continue apixaban. (4) HTN (hypertension): HCTZ held because of hypercalcemia. BP's running low at times- hold lisinopril. BP this morning = 121/82. Follow and titrate Rx. (5) Hypokalemia: K as low as 3.0. Replaced. K today = 3.9. Follow. (6) Urinary tract infection: Urine culture growing Enterococcus faecalis. No fever or dysuria, but WBC elevated. Rx with amoxicillin. (7) DVT prophylaxis: Continue apixaban. Ambulate. (8) Discharge planning issues: Anticipated discharge to home if functional status allows. PT / OT evals. Family Medicine follow-up with Dr. Narvaez. Hematology / Medical Oncology follow-up with Dr. Ronald Vincent. Admission and Anticipated Discharge Date Admission Date: November 07, 2019 Subjective Recheck for hypercalcemia and other problems. Patient seen in their room this morning. Feels better. No further N/V. Had BM. Still not ambulating much. Review of Systems: Constitutional- no fever. Cardiac- no chest pain. Pulmonary- no cough or SOB. GI- as noted above. - no urinary symptoms. Otherwise, as noted above. Physical Exam Constitutional: + ill appearing; no acute distress Eyes: + anicteric sclerae Respiratory: no respiratory distress Auscultation: + diminished lung sounds (right base) Cardiovascular: Rate/Rhythm: regular rate and regular rhythm Vessels: no JVD Extremities: + edema (1-2+ pretibial); no calf tenderness Gastrointestinal (Abdomen): Inspection/Auscultation: normal bowel sounds Percussion/Palpation: abdomen soft; abdomen nontender Musculoskeletal: Extremities: no cyanosis Skin: no rashes, warm and dry Psychiatric: Orientation: alert Results & Data Results & Data ([facility]) Vital Signs (Past 12 Hours) Vital Signs Temp Pulse Pulse Resp BP Pulse Ox 11/11/19 15:54 36.8 C 97 H 16 121/82 96 11/11/19 15:00 102 H 11/11/19 11:34 36.6 C 88 16 116/80 93 11/11/19 07:27 36.5 C 79 16 122/85 98 Laboratory Results 11/11/19 06:45
[2019-11-11] MEDS: OMEGA-3 (PURIFIED FISH OIL) 1 GM CAP PO SCH ×2 (20:12→20:34)
[2019-11-12 06:38] LABS: Hematocrit (blood only) 32.3 % (37-47); Hemoglobin 9.6 g/dL (12.0-16.0); Mean Corpuscular Hemoglobin 23.2 pg (25-34); Mean Corpuscular Hgb Conc 29.7 g/dL (32-36); Mean Platelet Volume 9.6 fL (7.4-10.4); Platelet Count 397 K/uL (130-400); RDW Coefficient of Variation 18.5 % (11.5-14.5); RDW Standard Deviation 52.2 fL (36.4-46.3); Red Blood Count 4.14 M/uL (4.2-5.4); White Blood Count 11.09 K/uL (4.8-10.8)
[2019-11-12 07:15] LABS: BUN Creatinine Ratio 30.4 (10-20); Creatinine Clr Calc Pharmacy 115.7 ml/min; Est GFR (African American) 117.7; Est GFR (Non-African American) 101.5; Potassium 3.8 mmol/L (3.5-5.1)
[2019-11-12] MEDS: AMOXICILLIN 500 MG CAP PO SCH ×3 (07:35→20:10)
[2019-11-12] MEDS: APIXABAN 5 MG TABLET PO SCH ×2 (07:35→20:10)
[2019-11-12] MEDS: POLYETHYLENE (MIRALAX) 17 GM PACK PO SCH ×2 (07:36→20:09)
[2019-11-12] MEDS: MAGNESIUM OXIDE 400 MG TAB PO SCH ×2 (07:36→20:10)
[2019-11-12] MEDS: POTASSIUM CHLORIDE 10 MEQ TABCR PO SCH ×2 (07:36→20:09)
--- NOTE | 2019-11-12 18:27 | Hospitalist Progress Note ---
Date of Service November 12, 2019 Assessment & Plan (1) Hypercalcemia: Calcium at time of admission 12.7. Nephrology consulted. 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 PTH = 15. 25-OH D = 48. PTH related protein pending. SPEP pending. MINA pending. Received IV fluids, furosemide, calcitonin, zoledronic acid with improvement. Calcium today = 9.0. Follow. (2) Metastatic adenocarcinoma to liver: Recent biopsy of liver mass demonstrated adenocarcinoma consistent with metastatic endometrial carcinoma. Further management per Dr. Vincent. (3) Pulmonary embolism: Acute pulmonary embolism diagnosed by CTA chest 10/20/19. Venous duplex lower extremities negative for DVT. Continue apixaban. (4) HTN (hypertension): HCTZ held because of hypercalcemia. BP's running low at times- hold lisinopril. BP this morning = 125/86. Follow and titrate Rx. (5) Hypokalemia: K as low as 3.0. Replaced. K today = 3.8. Follow. (6) Urinary tract infection: Urine culture grew Enterococcus faecalis. No fever or dysuria, but WBC elevated. Rx with amoxicillin. (7) DVT prophylaxis: Continue apixaban. Ambulate. (8) Discharge planning issues: Anticipated discharge to home if functional status allows. PT / OT evals. Family Medicine follow-up with Dr. Narvaez. Hematology / Medical Oncology follow-up with Dr. Ronald Vincent. Admission and Anticipated Discharge Date Admission Date: November 07, 2019 Subjective Recheck for hypercalcemia and other problems. Patient seen in their room this morning around 0950. Generally feels better. No further N/V. Constipation resolved. Still weak. Ambulating in room, but no further. Review of Systems: Constitutional- no fever. Cardiac- no chest pain. Pulmonary- no cough or SOB. GI- as noted above. - no urinary symptoms. Otherwise, as noted above. Physical Exam Constitutional: + ill appearing; no acute distress Eyes: + anicteric sclerae Respiratory: no respiratory distress Auscultation: + diminished lung sounds (right base) Cardiovascular: Rate/Rhythm: regular rate and regular rhythm Vessels: no JVD Extremities: + edema (1-2+ pretibial); no calf tenderness Gastrointestinal (Abdomen): Inspection/Auscultation: normal bowel sounds Percussion/Palpation: abdomen soft; abdomen nontender Musculoskeletal: Extremities: no cyanosis Skin: no rashes, warm and dry Psychiatric: Orientation: alert Results & Data Results & Data ([facility]) Vital Signs (Past 12 Hours) Vital Signs Temp Pulse Pulse Resp BP Pulse Ox 11/12/19 14:59 36.4 C L 88 18 125/86 97 11/12/19 08:54 97 H 11/12/19 07:36 36.8 C 74 16 115/76 96 Laboratory Results Laboratory Results - last 24 hr 11/12/19 11/12/19 06:24 06:24 WBC 11.09 H RBC 4.14 L Hgb 9.6 L Hct 32.3 L MCV 78.0 L MCH 23.2 L MCHC 29.7 L RDW Std Deviation 52.2 H RDW Coeff of Dahlia 18.5 H Plt Count 397 MPV 9.6 Sodium 142 Potassium 3.8 Chloride 112 H Carbon Dioxide 22 Anion Gap 8.0 BUN 15 Creatinine 0.49 L Est Cr Clr Drug Dosing 115.7 Est GFR ( Amer) 117.7 Est GFR (Non-Af Amer) 101.5 BUN/Creatinine Ratio 30.4 H Glucose 94 Calcium 9.0
[2019-11-12] MEDS: OMEGA-3 (PURIFIED FISH OIL) 1 GM CAP PO SCH (20:09)
[2019-11-13] MEDS: AMOXICILLIN 500 MG CAP PO SCH ×3 (07:35→20:16)
[2019-11-13] MEDS: MAGNESIUM OXIDE 400 MG TAB PO SCH ×2 (07:35→20:18)
[2019-11-13] MEDS: POTASSIUM CHLORIDE 10 MEQ TABCR PO SCH ×2 (07:35→20:17)
[2019-11-13] MEDS: POLYETHYLENE (MIRALAX) 17 GM PACK PO SCH ×2 (07:35→20:16)
[2019-11-13] MEDS: APIXABAN 5 MG TABLET PO SCH ×2 (07:35→20:16)
[2019-11-13] MEDS: OMEGA-3 (PURIFIED FISH OIL) 1 GM CAP PO SCH ×2 (20:16→20:20)
--- NOTE | 2019-11-13 20:43 | Hospitalist Progress Note ---
Date of Service November 13, 2019 Assessment & Plan (1) Hypercalcemia: Calcium at time of admission 12.7. Nephrology consulted. 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 PTH = 15. 25-OH D = 48. PTH related protein pending. SPEP pending. MINA pending. Received IV fluids, furosemide, calcitonin, zoledronic acid with improvement. Calcium yesterday = 9.0. Follow. (2) Metastatic adenocarcinoma to liver: Recent biopsy of liver mass demonstrated adenocarcinoma consistent with metastatic endometrial carcinoma. Further management per Dr. Vincent. (3) Pulmonary embolism: Acute pulmonary embolism diagnosed by CTA chest 10/20/19. Venous duplex lower extremities negative for DVT. Continue apixaban. (4) HTN (hypertension): HCTZ held because of hypercalcemia. BP's running low at times- hold lisinopril. BP this morning = 118/82. Follow and titrate Rx. (5) Hypokalemia: K as low as 3.0. Replaced. K yesterday = 3.8. Follow. (6) Urinary tract infection: Urine culture grew Enterococcus faecalis. No fever or dysuria, but WBC elevated. Rx with amoxicillin. (7) DVT prophylaxis: Continue apixaban. Ambulate. (8) Discharge planning issues: Anticipated discharge to home if functional status allows. PT / OT evals. Family Medicine follow-up with Dr. Narvaez. Hematology / Medical Oncology follow-up with Dr. Ronald Vincent. Admission and Anticipated Discharge Date Admission Date: November 07, 2019 Subjective Recheck for hypercalcemia and other problems. Patient seen in their room this morning around 1850. No further N/V. Constipation resolved. Strength gradually improving. Ambulating short distances with walker. Has walker at [facility]. Review of Systems: Constitutional- no fever. Cardiac- no chest pain. Pulmonary- occasional cough; stable dyspnea with exertion. GI- as noted above. - no urinary symptoms. Otherwise, as noted above. Physical Exam Constitutional: + ill appearing; no acute distress Eyes: + anicteric sclerae Respiratory: no respiratory distress Auscultation: + diminished lung sounds (right base) Cardiovascular: Rate/Rhythm: regular rate and regular rhythm Vessels: no JVD Extremities: + edema (1-2+ pretibial); no calf tenderness Gastrointestinal (Abdomen): Inspection/Auscultation: normal bowel sounds Percussion/Palpation: abdomen soft; abdomen nontender Musculoskeletal: Extremities: no cyanosis Skin: no rashes, warm and dry Psychiatric: Orientation: alert Results & Data Results & Data ([facility]) Vital Signs (Past 12 Hours) Vital Signs Temp Pulse Pulse Resp BP BP Pulse Ox 11/13/19 19:51 36.6 C 113 H 18 120/82 95 11/13/19 15:37 103 H 11/13/19 15:26 36.8 C 103 H 19 122/85 95 11/13/19 11:02 36.4 C L 108 H 18 121/87 97
[2019-11-14 06:06] LABS: Hematocrit (blood only) 32.4 % (37-47); Hemoglobin 9.8 g/dL (12.0-16.0); Mean Corpuscular Hemoglobin 23.1 pg (25-34); Mean Corpuscular Hgb Conc 30.2 g/dL (32-36); Mean Corpuscular Volume 76.2 fL (80-100); Mean Platelet Volume 9.8 fL (7.4-10.4); Platelet Count 434 K/uL (130-400); RDW Coefficient of Variation 18.7 % (11.5-14.5); RDW Standard Deviation 51.9 fL (36.4-46.3); Red Blood Count 4.25 M/uL (4.2-5.4); White Blood Count 12.35 K/uL (4.8-10.8)
[2019-11-14 06:40] LABS: BUN Creatinine Ratio 25.7 (10-20); Calcium 8.8 mg/dl (8.5-10.1); Creatinine Clr Calc Pharmacy 107.5 ml/min; Est GFR (African American) 113.3; Est GFR (Non-African American) 97.7; Magnesium 2.1 mg/dl (1.8-2.4); Potassium 4.2 mmol/L (3.5-5.1)
[2019-11-14] MEDS: AMOXICILLIN 500 MG CAP PO SCH ×2 (08:26→14:04)
[2019-11-14] MEDS: APIXABAN 5 MG TABLET PO SCH ×2 (08:26→20:44)
[2019-11-14] MEDS: POTASSIUM CHLORIDE 10 MEQ TABCR PO SCH ×2 (08:26→20:44)
[2019-11-14] MEDS: POLYETHYLENE (MIRALAX) 17 GM PACK PO SCH ×2 (08:30→20:48)
[2019-11-14] MEDS: MAGNESIUM OXIDE 400 MG TAB PO SCH ×2 (08:37→20:48)
[2019-11-14] MEDS ORDERED: FUROSEMIDE 20 MG in SYRINGE 0 ML IV ONE (17:15)
--- NOTE | 2019-11-14 20:38 | Hospitalist Progress Note ---
Date of Service November 14, 2019 Assessment & Plan (1) Hypercalcemia: Calcium at time of admission 12.7. Nephrology consulted. 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 PTH = 15. 25-OH D = 48. PTH related protein = 20 (normal). SPEP: 2 restricted bands (M-spikes) migrating in the gamma globulin region. Check immunofixation. MINA = 6. Received IV fluids, furosemide, calcitonin, zoledronic acid with improvement. Calcium today = 8.8. Ionized calcium 1.18. Follow. (2) Metastatic adenocarcinoma to liver: Recent biopsy of liver mass demonstrated adenocarcinoma consistent with metastatic endometrial carcinoma. Further management per Dr. Vincent. (3) Pulmonary embolism: Acute pulmonary embolism diagnosed by CTA chest 10/20/19. Venous duplex lower extremities negative for DVT. Continue apixaban. (4) Paroxysmal atrial tachycardia: Having short runs of PAT, asymptomatic. K and Mg now normal. Start low dose metoprolol. (5) HTN (hypertension): HCTZ held because of hypercalcemia. BP's running low at times- holding lisinopril. Having PAT. Transition to low dose metoprolol for BP + PAT. Follow and titrate Rx. (6) Edema: Received IV fluids for hypercalcemia. Now with worsening dependent edema. Furosemide 20 mg IV today x 1, then 20 mg PO daily. (7) Hypokalemia: K as low as 3.0. Replaced. K today = 4.2. Follow. (8) Urinary tract infection: Urine culture grew Enterococcus faecalis. No fever or dysuria, but WBC elevated. Rx with amoxicillin. (9) DVT prophylaxis: Continue apixaban. Ambulate. (10) Discharge planning issues: Anticipated discharge to home if functional status allows. PT / OT evals. Family Medicine follow-up with Dr. Narvaez. Hematology / Medical Oncology follow-up with Dr. Ronald Vincent. Admission and Anticipated Discharge Date Admission Date: November 07, 2019 Subjective Recheck for hypercalcemia and other problems. Patient seen in their room this morning around 1630. No further N/V. Constipation resolved. Strength gradually improving. Ambulating short distances with walker and assistance. Experiencing fatigue and dyspnea with exertion. Lower extremity edema worse than baseline. Short runs of PAT noted on [facility], asymptomatic. Review of Systems: Constitutional- no fever. Cardiac- no chest pain. Pulmonary- occasional cough; stable dyspnea with exertion. GI- as noted above. - no urinary symptoms. Otherwise, as noted above. Physical Exam Constitutional: + ill appearing; no acute distress Eyes: + anicteric sclerae Respiratory: no respiratory distress Auscultation: + diminished lung sounds (right base) Cardiovascular: Rate/Rhythm: regular rate and regular rhythm Vessels: no JVD Extremities: + edema (2+ pretibial); no calf tenderness Gastrointestinal (Abdomen): Inspection/Auscultation: normal bowel sounds Percussion/Palpation: abdomen soft; abdomen nontender Musculoskeletal: Extremities: no cyanosis Skin: no rashes, warm and dry Psychiatric: Orientation: alert Results & Data Results & Data ([facility]) Vital Signs (Past 12 Hours) Vital Signs Temp Pulse Pulse Resp BP BP Pulse Ox 11/14/19 19:22 36.6 C 70 18 113/80 96 11/14/19 16:00 36.7 C 80 18 125/83 96 11/14/19 15:45 109 H Laboratory Results Laboratory Results - last 24 hr 11/08/19 11/14/19 11/14/19 04:11 05:23 05:23 WBC 12.35 H RBC 4.25 Hgb 9.8 L Hct 32.4 L MCV 76.2 L MCH 23.1 L MCHC 30.2 L RDW Std Deviation 51.9 H RDW Coeff of Dahlia 18.7 H Plt Count 434 H MPV 9.8 Sodium 141 Potassium 4.2 Chloride 112 H Carbon Dioxide 24 Anion Gap 5.0 BUN 14 Creatinine 0.55 L Est Cr Clr Drug Dosing 107.5 Est GFR ( Amer) 113.3 Est GFR (Non-Af Amer) 97.7 BUN/Creatinine Ratio 25.7 H Glucose 95 Calcium 8.8 Ionized Calcium Magnesium 2.1 AST 148 H ALT 29 Total Protein (PEP) 5.9 L Albumin 2.0 L Albumin (PEP) 2.4 L Nyaxl-3-Ubnxiolew 0.6 H Ugfuo-9-Auiujgssy 0.9 Pcvv-0-Nscykxue 0.4 Zvnt-0-Tmpburge 0.4 Gamma Globulins 1.2 Monoclonal Peak 3 DNR Ser Monoclonl Protein 0.5 H Ser Monoclonal Prot 2 0.3 H PEP Interpretation SEE NOTE Angiotensin Convert Enz 6 L PTH Related Protein 11/14/19 05:23 WBC RBC Hgb Hct MCV MCH MCHC RDW Std Deviation RDW Coeff of Dahlia Plt Count MPV Sodium Potassium Chloride Carbon Dioxide Anion Gap BUN Creatinine Est Cr Clr Drug Dosing Est GFR ( Amer) Est GFR (Non-Af Amer) BUN/Creatinine Ratio Glucose Calcium Ionized Calcium 1.18 Magnesium AST ALT Total Protein (PEP) Albumin Albumin (PEP) Ahzme-6-Norjsmzwp Cotxs-3-Xvesihrtq Knmh-8-Fmrmsnzk Pboi-8-Cxggrzww Gamma Globulins Monoclonal Peak 3 Ser Monoclonl Protein Ser Monoclonal Prot 2 PEP Interpretation Angiotensin Convert Enz PTH Related Protein
[2019-11-14] MEDS: METOPROLOL TARTRATE 25 MG TAB PO SCH (20:45)
[2019-11-14] MEDS: OMEGA-3 (PURIFIED FISH OIL) 1 GM CAP PO SCH (20:48)
[2019-11-14 22:59] LABS: Albumin 2.4 g/dL (3.8-4.8); Alpha 1 Globulin 0.6 g/dL (0.2-0.3); Alpha 2 Globulin 0.9 g/dL (0.5-0.9); Angiotensin Converting Enzyme 6 U/L (9-67); Beta-1-Globulin 0.4 g/dL (0.4-0.6); Beta-2-Globulin 0.4 g/dL (0.2-0.5); Gamma Globulin 1.2 g/dL (0.8-1.7); Monoclonal Protein Band 1 0.5 g/dL (NONE DETECTED); Monoclonal Protein Band 2 0.3 g/dL (NONE DETECTED); Monoclonal Protein Band 3 DNR g/dL (NONE DETECTED); PTH Related Protein 20 pg/mL (14-27); Total Protein 5.9 g/dL (6.1-8.1)
[2019-11-15] MEDS: ACETAMINOPHEN 325 MG TAB PO PRN (06:20)
[2019-11-15 08:47] LABS: BUN Creatinine Ratio 20.6 (10-20); Creatinine Clr Calc Pharmacy 83.9 ml/min; Est GFR (African American) 104.6; Est GFR (Non-African American) 90.3; Potassium 4.4 mmol/L (3.5-5.1)
[2019-11-15] MEDS: METOPROLOL TARTRATE 25 MG TAB PO SCH ×2 (09:14→20:28)
[2019-11-15] MEDS: MAGNESIUM OXIDE 400 MG TAB PO SCH ×2 (09:14→20:28)
[2019-11-15] MEDS: POTASSIUM CHLORIDE 10 MEQ TABCR PO SCH ×2 (09:15→20:28)
[2019-11-15] MEDS: APIXABAN 5 MG TABLET PO SCH ×2 (09:15→20:28)
[2019-11-15] MEDS: FUROSEMIDE 20 MG TAB PO SCH (09:15)
[2019-11-15] MEDS: POLYETHYLENE (MIRALAX) 17 GM PACK PO SCH ×2 (09:16→20:57)
[2019-11-15] MEDS ORDERED: ALUMINUM/MAGNESIUM SUSP 30 ML UDC PO STA (18:38)
--- NOTE | 2019-11-15 19:52 | Hospitalist Progress Note ---
Date of Service November 15, 2019 Assessment & Plan (1) Hypercalcemia: Pt was sent to the ER from oncology office for abnormal labs Calcium at time of admission 12.7. Possible related to malignancy due to underlying endometrial carcinoma with metastases to liver. PTH = 15 and 25-OH D 48, PTH related protein = 20 (normal), MINA=6 SPEP: 2 restricted bands (M-spikes) migrating in the gamma globulin region. Check immunofixation. Nephrology consulted. Received IV fluids, furosemide, calcitonin, zoledronic acid with improvement. Calcium today = 9 Stable (2) Metastatic adenocarcinoma to liver: Recent biopsy of liver mass demonstrated adenocarcinoma consistent with metastatic endometrial carcinoma. Outpatient follow up with Oncology Dr. Vincent. (3) Pulmonary embolism: Acute pulmonary embolism diagnosed by CTA chest 10/20/19. Venous duplex lower extremities negative for DVT. Continue apixaban. (4) Paroxysmal atrial tachycardia: Had short runs of PAT, asymptomatic. Will keep K above 4 and Mg above 2 Continue metoprolol 12.5 mg (5) HTN (hypertension): BP stable HCTZ held because of hypercalcemia. Will resume Lisinopril Continue monitor BP (6) Edema: Received IV fluids for hypercalcemia. Now with worsening dependent edema. Received Furosemide 20 mg IV x1, Continue lasix 20 mg PO daily. (7) Hypokalemia: K dropped as low as 3.0. K today 4.4 Continue monitor BMP (8) Urinary tract infection: Urine culture grew Enterococcus faecalis. No fever or dysuria, but WBC elevated. Completed course of amoxicillin (9) DVT prophylaxis: Continue apixaban. (10) Discharge planning issues: Anticipated discharge to home if functional status allows. PT / OT evals. Family Medicine follow-up with Dr. Narvaez. Hematology / Medical Oncology follow-up with Dr. Ronald Vincent. Admission and Anticipated Discharge Date Admission Date: November 07, 2019 Subjective Pt was seen and examined Lying in bed with no distress Pt said that she feels much better Denies any chest pain, palpitation, dizziness and SOB Physical Exam Physical Exam: General- No acute distress Head- atraumatic Eyes- PERRL, EOMI, ENT- oropharynx clear Neck- supple, no JVD Lungs- Poor air entry Heart- regular rhythm; no murmur Abdomen- normal bowel sounds, soft, nontender Extremities- no calf tenderness, +edema Neuro- alert, oriented x 3; PERRL, EOMI; no facial palsy; no dysarthria Skin- warm & dry Results & Data Results & Data ([facility]) Vital Signs (Past 12 Hours) Vital Signs Temp Pulse Pulse Resp BP BP Pulse Ox 11/15/19 15:46 36.8 C 72 18 120/87 92 11/15/19 14:20 100 H 11/15/19 12:44 95 11/15/19 11:44 36.6 C 95 H 16 104/75 96
[2019-11-15] MEDS: OMEGA-3 (PURIFIED FISH OIL) 1 GM CAP PO SCH (20:28)
[2019-11-16 05:50] LABS: Hematocrit (blood only) 34.2 % (37-47); Hemoglobin 10.4 g/dL (12.0-16.0); Mean Corpuscular Hemoglobin 23.2 pg (25-34); Mean Corpuscular Hgb Conc 30.4 g/dL (32-36); Mean Corpuscular Volume 76.2 fL (80-100); Mean Platelet Volume 9.3 fL (7.4-10.4); Platelet Count 442 K/uL (130-400); RDW Coefficient of Variation 18.9 % (11.5-14.5); RDW Standard Deviation 51.9 fL (36.4-46.3); Red Blood Count 4.49 M/uL (4.2-5.4); White Blood Count 12.77 K/uL (4.8-10.8)
[2019-11-16 06:25] LABS: Calcium 8.9 mg/dl (8.5-10.1); Creatinine Clr Calc Pharmacy 87.6 ml/min; Est GFR (African American) 106.2; Est GFR (Non-African American) 91.6; Potassium 4.3 mmol/L (3.5-5.1)
[2019-11-16] MEDS: POLYETHYLENE (MIRALAX) 17 GM PACK PO SCH (08:35)
[2019-11-16] MEDS: FUROSEMIDE 20 MG TAB PO SCH (08:35)
[2019-11-16] MEDS: APIXABAN 5 MG TABLET PO SCH (08:35)
[2019-11-16] MEDS: METOPROLOL TARTRATE 25 MG TAB PO SCH (08:35)
[2019-11-16] MEDS: POTASSIUM CHLORIDE 10 MEQ TABCR PO SCH (08:35)
[2019-11-16] MEDS: MAGNESIUM OXIDE 400 MG TAB PO SCH (08:36)
--- NOTE | 2019-11-16 14:44 | Hospitalist Progress Note ---
Date of Service November 16, 2019 Assessment & Plan (1) Hypercalcemia: Pt was sent to the ER from oncology office for abnormal labs Calcium at time of admission 12.7. Possible related to malignancy due to underlying endometrial carcinoma with metastases to liver. PTH = 15 and 25-OH D 48, PTH related protein = 20 (normal), MINA=6 SPEP: 2 restricted bands (M-spikes) migrating in the gamma globulin region. Check immunofixation. Nephrology consulted. Received IV fluids, furosemide, calcitonin, zoledronic acid with improvement. 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 Outpatient follow up with Oncology Dr. Vincent. (3) Pulmonary embolism: Acute pulmonary embolism diagnosed by CTA chest 10/20/19. Venous duplex lower extremities negative for DVT. Continue apixaban. (4) Paroxysmal atrial tachycardia: Had short runs of PAT, asymptomatic. Will keep K above 4 and Mg above 2 Continue metoprolol to 12.5 mg BID on discharge (5) HTN (hypertension): BP in the Low side HCTZ held because of hypercalcemia, will discontinue on discharge as per nephrology Will continue to hold Lisinopril for now, will defer to PCP to resume Lisinopril if BP starts to elevate Continue monitor BP (6) Edema: Received IV fluids for hypercalcemia. Now with worsening dependent edema. Received Furosemide 20 mg IV x1, Received Lasix 20mg daily during hospital course Discussed about stocking compression, pt said that she will think about Will do lasix 20mg for 3 more days (7) Hypokalemia: K dropped as low as 3.0. K today 4.3 Continue monitor BMP (8) Urinary tract infection: Urine culture grew Enterococcus faecalis. No fever or dysuria, but WBC elevated. Completed course of amoxicillin (9) DVT prophylaxis: Continue apixaban. (10) Discharge planning issues: Anticipated discharge to home if functional status allows. PT / OT evals. Family Medicine follow-up with Dr. Narvaez. Hematology / Medical Oncology follow-up with Dr. Ronald Vincent. Admission and Anticipated Discharge Date Admission Date: November 07, 2019 Subjective Pt was seen and examined Sitting in chair with no distress Pt said that she feels much better today Denies any chest pain, palpitation, dizziness and SOB Physical Exam Physical Exam: General- No acute distress Head- atraumatic Eyes- PERRL, EOMI, ENT- oropharynx clear Neck- supple, no JVD Lungs- Poor air entry Heart- regular rhythm; no murmur Abdomen- normal bowel sounds, soft, nontender Extremities- no calf tenderness, +edema Neuro- alert, oriented x 3; PERRL, EOMI; no facial palsy; no dysarthria Skin- warm & dry Results & Data Results & Data ([facility]) Vital Signs (Past 12 Hours) Vital Signs Temp Pulse Resp BP BP Pulse Ox 11/16/19 11:57 36.5 C 103 H 18 97/68 L 97 11/16/19 08:05 105 H 18 114/80 97 11/16/19 04:35 36.7 C 91 H 16 126/86 93
--- NOTE | 2019-11-18 09:16 | Discharge Summary ---
Date of Service November 16, 2019 Admission HPI Per Admitting Provider This is a 64-year-old female who has significant past medical history of HTN, HLD, diastolic dysfunction, history of endometrial carcinoma who presents to ED's at the referral of oncologist secondary to abnormal labs. Of significance patient was hospitalized 10/19-10/22 secondary to newly diagnosed PE. She was started on Eliquis. Incidentally on imaging a liver mass was noted. She underwent further MRI evaluation which revealed right lobe of liver mass 16 x 15 x 13 and underwent FNA. Results deemed it to be metastatic endometrial carcinoma. She underwent follow-up with Dr. Vincent this afternoon, who she had previously seen in the past in regard to an endometrial CA in 2012. Lab evaluation during today's appointment revealed a serum elevated calcium which prompted ED referral. Over the past month she has noticed increased weakness, decreased appetite, change in taste and weight loss. Over the past 2 weeks she has lost an additional 7 pounds. She does live alone and does not require any ambulatory assist device. She denies any recent fever, chills, sweats, lightheadedness, dizziness, syncope, chest pain, shortness of breath, cough, nausea, vomiting, abdominal pain, dysuria increased urgency or frequency with urination, melena or hematochezia. Overall appetite has been significantly diminished. She denies any tremors, muscle cramps or rigidity. He has been compliant with her Eliquis. She also complains of intermittent right upper quadrant pain although currently this is absent. This is been present since diagnosis with liver metastasis. In ED she remained hemodynamically stable, mildly tachycardic, heart rate 94. He was saturating well on room air. Lab abnormality notable for WBC 15.46, H&H 10.3 and 34.1, platelet 47, INR 1.4, K3.7, BUN 21, creatinine 0.93, calcium corrected 14.2, AST 146, ALT 167, albumin 2.1, TSH WNL. Chest x-ray reveals small right lower lobe pleural effusion and elevation of diaphragm. In ED she received 1 L of IVF along with 4 mg of zoledronic acid at the recommendation of Dr. Vincent. Admission Exam Per Admitting Provider Constitutional: Chronically ill-appearing, female, sitting up in bed, pale, well-developed, vitals as above, NAD, pleasant, conversing easily Head: Normocephalic, Atraumatic Eyes: PERRL, conjunctivae normal, anicteric sclerae ENMT: external ear and nose normal, oropharynx normal dry membranes Neck: trachea midline, no thyromegaly normal visual inspection Respiratory: normal respiratory effort, lungs clear to auscultation, no wheeze, rales, rhonchi. Normal insp/exp effort, no accessory muscle use Cardiovascular: RRR, no murmur, no edema Vessels: no JVD or carotid bruit Chest: normal inspection of chest Abdomen: normal bowel sounds, soft, nontender, hepatomegaly noted Musculoskeletal: no cyanosis or clubbing, extremities motor strength 5/5, negative Ch[place]ek sign Skin: no rashes, warm and dry moderate turgor Neurologic: PERRL, EOMI, accommodation nl, no face palsy, no dysarthria CN's II-XI intact bilaterally and moves all extremities Psychiatric: A+Ox3, euthymic affect Lymphatic: no cervical or axillary lymphadenopathy : deferred Principal Diagnosis Hypercalcemia: Metastatic adenocarcinoma to liver: Pulmonary embolism: Paroxysmal atrial tachycardia: HTN (hypertension): Hypokalemia: Urinary tract infection: Discharge Exam General- No acute distress Head- atraumatic Eyes- PERRL, EOMI, ENT- oropharynx clear Neck- supple, no JVD Lungs- Poor air entry Heart- regular rhythm; no murmur Abdomen- normal bowel sounds, soft, nontender Extremities- no calf tenderness, +edema Neuro- alert, oriented x 3; PERRL, EOMI; no facial palsy; no dysarthria Skin- warm & dry Discharge Data Allergies Allergy/AdvReac Type Severity Reaction Status Date / Time No Known Allergies Allergy Verified 11/07/19 16:39 Consultations 11/07/19 16:56 ED Decision to Admit Stat 11/07/19 18:56 Consult Case Management - Discharge Planning Routine Consult Nephrology Routine Ordered Studies 11/08/19 13:18 US venous doppler LE BI Routine XR chest 1V portable CLINICAL HISTORY: absent breath sounds on right lower lung COMPARISON STUDY: 10/21/2019 FINDINGS: The cardiac and mediastinal contours remain stable. There is persistent elevation of the right hemidiaphragmatic contour. This is felt to be secondary to an elevated right hemidiaphragm, small right pleural effusion, and right basilar atelectasis.[The left lung is clear IMPRESSION: 1. Persistent right basilar opacity which is felt to be secondary to an elevated right hemidiaphragm, small right pleural effusion, and right basilar atelectasis. ACT 112: Negative or not required by law. Electronically signed by: Waldo Heller M.D. 11/07/2019 5:41 PM Dictated: 11/07/19 1740 Transcribed: 11/07/191739 BILATERAL LOWER EXTREMITY VENOUS DOPPLER HISTORY: Bilateral lower extremity edema, uterine cancer COMPARISON STUDY: None. FINDINGS: There is normal compressibility, flow, and augmentation within the bilateral lower extremity deep venous systems. IMPRESSION: No DVT within the right or left lower extremity. ACT 112: Negative or not required by law. Electronically signed by: Filiberto Parmar M.D. 11/08/2019 2:56 PM Dictated: 11/08/19 1453 Transcribed: 11/08/19 145 Hospital Course (1) Hypercalcemia: Pt was sent to the ER from oncology office for abnormal labs Calcium at time of admission 12.7. Possible related to malignancy due to underlying endometrial carcinoma with metastases to liver. PTH = 15 and 25-OH D 48, PTH related protein = 20 (normal), MINA=6 SPEP: 2 restricted bands (M-spikes) migrating in the gamma globulin region. Check immunofixation. Nephrology consulted. Received IV fluids, furosemide, calcitonin, zoledronic acid with improvement. 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 Outpatient follow up with Oncology Dr. Vincent. (3) Pulmonary embolism: Acute pulmonary embolism diagnosed by CTA chest 10/20/19. Venous duplex lower extremities negative for DVT. Continue apixaban. (4) Paroxysmal atrial tachycardia: Had short runs of PAT, asymptomatic. Will keep K above 4 and Mg above 2 Continue metoprolol to 12.5 mg BID on discharge (5) HTN (hypertension): BP in the Low side HCTZ held because of hypercalcemia, will discontinue on discharge as per nephrology Will continue to hold Lisinopril for now, will defer to PCP to resume Lisinopril if BP starts to elevate Continue monitor BP (6) Edema: Received IV fluids for hypercalcemia. Now with worsening dependent edema. Received Furosemide 20 mg IV x1, Received Lasix 20mg daily during hospital course Discussed about stocking compression, pt said that she will think about Will do lasix 20mg for 3 more days (7) Hypokalemia: K dropped as low as 3.0. K today 4.3 Continue monitor BMP (8) Urinary tract infection: Urine culture grew Enterococcus faecalis. No fever or dysuria, but WBC elevated. Completed course of amoxicillin (9) DVT prophylaxis: Continue apixaban. (10) Discharge planning issues: Anticipated discharge to home if functional status allows. PT / OT evals. Family Medicine follow-up with Dr. Narvaez. Hematology / Medical Oncology follow-up with Dr. Ronald Vincent. Total Time Total Time Spent Total Time Spent (In Minutes): 35 minutes Total Time Includes: Examination of the Patient, Discharge Planning, Medication Reconciliation, Communication With Other Providers and Other Discharge Plan Discharge Items Patient Disposition: Home - Self-Care Reason For Visit: HYPERCALCEMIA IN [place] Discharge Diagnosis: Hypercalcemia: Metastatic adenocarcinoma to liver: Pulmonary embolism: Paroxysmal atrial tachycardia: HTN (hypertension): Hypokalemia: Urinary tract infection: Activity: Resume your previous activity Non-emergency contact: Primary Care Provider, [facility] Call non-emergency contact if: you have any medication questions Follow-up/Referrals: Artemio Narvaez MD [Primary Care Provider] - 11/23/19 11:40 am (11/23/2019 11:40 AM Provider Violette Julio PA-C Department [facility] ) Diet: Heart Healthy Addtl Attending Provider Instructions: Follow up with your primary care provider Dr Narvaez on 11/22 @ 11:40 AM Follow up with your Oncology Dr. Vincent Follow up with Nephrology if calcium continue to elevate (Office will call you for the appointment) Continue physical and occupational therapy Fall precaution Continue monitor your blood pressure and your physician will resume the lisinopril if your blood pressure starts to elevate Check BMP in 1 week to monitor your electrolytes Consider to wear compression stocking and keep your leg elevate for the swelling in your lower extremity Will do lasix for 3 days only for the swelling (Will not continue it since it can affect the calcium level ) Pending Studies at Discharge: No Stand-Alone Forms: Vicampo, Smoking Cessation Medications and DC Order Prescriptions: New magnesium oxide 400 mg (241.3 mg magnesium) Tablet 400 mg PO DAILY Qty: 30 RF: 0 furosemide 20 mg Tablet 20 mg PO QAM Qty: 3 RF: 0 potassium chloride [Klor-Con M10] 10 mEq Tablet,Er Particles/Crystals 10 meq PO DAILY Qty: 5 RF: 0 metoprolol tartrate 25 mg Tablet 12.5 mg PO BID 30 Days Qty: 30 RF: 0 Continued coenzyme Q10 100 mg Capsule 100 mg PO QPM RF: 0 [id number] [krill oil] [id number] mg Capsule 1 cap PO QPM RF: 0 Fiber Gummies 2 gram Tablet,Chewable 2 g PO QPM RF: 0 Probiotic Gummy 1 tab PO QPM RF: 0 Eliquis 5 mg (74 tabs) tablets,dose pack 5 mg PO BID RF: 0 Discontinued lisinopril-hydrochlorothiazide 20-12.5 mg tablet 1 tab PO QPM RF: 0 cholecalciferol (vitamin D3) [Vitamin D3] 25 mcg (1,000 unit) Capsule 1,000 unit PO QPM RF: 0 Multivitamin 50 Plus Tablet 1 tab PO QPM RF: 0 Discharge Orders: Discharge Order (Routine); Ordered 11/16/19 Ordered By: Tigist Donis Admission Data Admit Date/Time: 11/07/19 16:58 Attending Provider: Tigist Donis Admit Provider: Melo Tellez Primary Care Provider: Artemio Narvaez Other Providers: Melo Tellez ; Clover Malcolm ; Jose Luis Estevez Other Interventions: Discharge Summary Assessment (RN) Last Done: 11/16/19 15:15 DC Date/Time DO NOT enter until pt leaves facility: 11/16/19 16:06
== END 2019-11-16 16:06 | disposition home or self-care (01) | DRG 640 ==
LOC: ED 14:07 → SUATTDRO 16:58 → 1E 16:58 → 2N 11-09 19:02

== ENCOUNTER 2020-01-13 16:20 | Inpatient (IN) ==
[2020-01-13] MEDS ORDERED: SODIUM CHLORIDE 0.9% 1000ML 2,000 ML IV ONE (16:51)
[2020-01-13] MEDS ORDERED: MoRPHine SULFATE 4 MG/ML 1 ML CARP\\VIAL IV STA (17:10)
[2020-01-13] MEDS ORDERED: ONDANSETRON INJ 2 MG/ML 2 ML VIAL IV STA (17:10)
--- NOTE | 2020-01-13 17:10 | Emergency Department Note ---
Impression & Plan Sepsis, Metastatic adenocarcinoma to liver, Pneumoperitoneum, Bowel perforation, Abscess, Elevated lactic acid level, Pleural effusion ED Provider Note NAME: EVA MELGOZA AGE: 64 SEX: F : 1955 ARRIVES VIA: Ambulance INFORMANT: Patient ED PROVIDER(S): Valeriy Wright DO CHIEF COMPLAINT: Abdominal pain HPI: Patient is a 64-year-old female with a past medical history of hypertension, hyperlipidemia, diastolic dysfunction, endometrial cancer diagnosed in 2012, PEs diagnosed on 10/20/19 on Eliquis and a recently diagnosed liver mass deemed to be metastatic endometrial carcinoma who presents to the ER for sever abdominal pain. Patient notes that started earlier this morning. She is from [facility] Last dose of chemotherapy was this past . She had her lung tapped this past week as well. She notes that the pain is throughout her entire belly. She had several bowel movements but no improvement. She describes as constant and severe 10 out of 10. Admits to nausea but no vomiting. Denies any dysuria urgency or frequency. No fevers. Denies any chest pain or shortness of breath but notes the pain is taking her breath away. No other exacerbating or remitting factors. ROS: See above HPI for pertinent positives & negatives. A total of 10 systems reviewed and were otherwise negative. PAST MEDICAL HISTORY:See Below PAST SURGICAL HISTORY:See Below FAMILY HISTORY:See Below SOCIAL HISTORY:See Below HOME MEDICATIONS:See Below ALLERGIES:See Below VITALS:See Below PHYSICAL EXAMINATION: GENERAL: Sitting up in bed, alert, ill-appearing, disheveled, moderate distress EYE EXAM: normal conjunctiva. OROPHARYNX: mucous membranes are dry NECK: supple, no nuchal rigidity, no adenopathy, non-tender LUNGS: Diminished on the right. Normal chest wall mechanics HEART: Tachycardic, S1 normal and S2 normal ABDOMEN: Abdomen rigid, positive bowel sounds, rebound and guarding present SKIN: no rashes and no bruising UPPER EXTREMITIES: upper extremities are grossly normal. LOWER EXTREMITIES: No pitting edema. NEURO EXAM: Normal sensorium, cranial nerves II-XII grossly intact, normal speech, no gross weakness of arms, no gross weakness of legs. MEDICAL DECISION MAKING: Patient is a [age]-year-old female with metastatic endometrial carcinoma receiving, PEs, with pleural effusions receiving chemotherapy that presents the ER for severe abdominal pain. Upon presentation she is found to be tachycardic and slightly hypotensive. IVs were established blood work was obtained. Labs show leukocytosis of 16.5 thousand. Mild anemia 10.8. BMP with a CO2 of 18. Lactate was elevated at 4.2. LFTs and bilirubin were unremarkable. Troponin was negative. Lipase was normal. Unable to obtain a UA. Chest x-ray shows a large right pleural effusion. CT of the chest and abdomen pelvis confirm with a perforated viscus in the abdomen in combination with abscesses free fluid and pneumoperitoneum. She was covered with IV Zosyn. She received a total of 3 L IV fluids. Systolic blood pressures trended up to the low 100s from the 70's. Heart rate trended down from the 130s to the high 90s. Initially desired to be a full code. She again dropped her blood pressures to the 70s. I recommended a central line. She did not want a large line placed in her groin or neck. General surgery presented to bedside and they believe she would be best served at another facility but that this is likely futile and nonsurvivable due to her comorbidities and current clinical presentation. Long conversation with the patient and son at bedside. She would prefer to made comfortable at this time. Patient was ordered a morphine drip. She was given morphine as needed. Additional blood work was stopped. Discussed with Dr. Langley and he will admit the patient. Patient is currently a DNR/DNI comfort measures. Triage Nursing notes reviewed. Prior medical records reviewed Vital Signs: reviewed and remarkable for tachycardic, hypotensive Differential diagnosis: Differential diagnosis includes etiologies such as sepsis, UTI, pneumonia, metabolic, electrolyte abnormalities, cardiac sources, intracerebral event, toxicologic, neurological, as well as others were entertained. ER treatment provided: See below Diagnostics interpreted by me: ECG: Sinus tachycardia rate of 136 Left axis No PVCs Normal QTC Cardiac Monitoring: An order was placed for continuous cardiac monitoring. The monitor shows a rate of 132 with sinus rhythm. Laboratory studies: As stated above and show below. Imaging studies: CT chest and abdomen pelvis shows perforation abscess and free fluid CT of the chest shows large pleural effusion Consultation(s): Discussed with Dr. Elizabeth from general surgery ED COURSE: Procedures: none Critical Care: I have personally spent 130 minutes of critical care time in the direct manag ement of this patient. This includes bedside care, interpretation of diagnostic studies, and testing, discussion with consultants, patient, and family members, and other required patient management activities. This 130 minutes is in excess of all separately billable procedures. Past Med/Surg History Medical History (Updated 01/13/20 @ 20:11 by Javier Elizabeth MD) Diastolic dysfunction History of endometrial cancer HLD (hyperlipidemia) HTN (hypertension) Liver cancer Surgical History H/O dilation and curettage History of colonoscopy last 2017 adenomatous and hyperplastic polyps History of hysterectomy History of liver biopsy Family History Brother Cancer Lung Father Cancer colon Mother Diabetes Other Heart disease Lung disease Denies family history of Tuberculosis Allergies Emphysema, unspecified Asthma Social History Smoking Status: Never smoker Second Hand Exposure: No (Exposure to secondhand smoke in past); Hx Alcohol Use: Yes Alcohol type: beer, wine and hard liquor Hx Substance Use: No Preferred Language: Iraqi Communication Ability: Effective Lens Grinder Required: No Beliefs That Will Affect Care: None Current Living Situation: Personal Care Facility Current Living Situation Comment: [facility] current occupational status: retired Feels Safe at Home: Yes Allergies Allergies Allergy/AdvReac Type Severity Reaction Status Date / Time No Known Allergies Allergy Verified 01/13/20 18:08 Home Meds Home Medications Medication Instructions Recorded Confirmed Eliquis 5 mg PO BID 11/07/19 01/13/20 Saccharomyces boulardii 250 mg 250 mg PO BIDM 01/04/20 01/13/20 capsule acetaminophen 325 mg capsule 325 mg PO Q4H PRN 01/04/20 01/13/20 dexamethasone 4 mg tablet See Rx Instructions .ROUTE 01/04/20 01/13/20 .COMPLEX PRN furosemide 20 mg tablet 40 mg PO QAM tab 01/04/20 01/13/20 metoprolol tartrate 25 mg tablet 12.5 mg PO BID 01/04/20 01/13/20 ondansetron HCl 8 mg tablet 8 mg PO Q8H PRN tab 01/04/20 01/13/20 apixaban 5 mg PO BID 01/13/20 01/13/20 calcium polycarbophil [Fiber 625 mg PO BID 01/13/20 01/13/20 Therapy (ca polycarboph)] magnesium oxide 400 mg PO QAM 01/13/20 01/13/20 potassium chloride [Klor-Con M10] 10 meq PO QAM 01/13/20 01/13/20 prochlorperazine maleate 10 mg PO Q6H PRN 01/13/20 01/13/20 Results & Data (ED) Vital Signs Vital Signs - 24 hr 01/13/20 16:20 01/13/20 16:30 01/13/20 16:42 Temperature 36.5 C Temperature Source Oral Pulse Rate 142 H 136 H 128 H Pulse Rate [Left Finger] Pulse Rate from SpO2 Sensor 136 H 128 H Respiratory Rate 36 H 57 H 31 H Respiratory Effort / Characteristics Labored Respiratory Pattern Irregular Blood Pressure 85/56 L 85/61 L 90/66 L Blood Pressure [Right Arm] Blood Pressure Mean 65 66 77 Blood Pressure Mean [Right Arm] Pulse Oximetry 94 94 96 Oxygen Delivery Method Room Air Sepsis Recent Fever Within 48 Hours No Sepsis New/Unexplained Change in Mental Status N/A Sepsis Action Taken by Nursing No Action Required 01/13/20 16:43 01/13/20 17:34 01/13/20 17:37 Temperature Temperature Source Pulse Rate 116 H Pulse Rate [Left Finger] 126 H 112 H Pulse Rate from SpO2 Sensor 116 H Respiratory Rate 24 33 H 36 H Respiratory Effort / Characteristics Respiratory Pattern Blood Pressure 81/60 L Blood Pressure [Right Arm] 90/56 L 81/60 L Blood Pressure Mean 67 Blood Pressure Mean [Right Arm] 67 67 Pulse Oximetry 97 94 95 Oxygen Delivery Method Room Air Room Air Sepsis Recent Fever Within 48 Hours Sepsis New/Unexplained Change in Mental Status Sepsis Action Taken by Nursing 01/13/20 17:42 01/13/20 17:49 01/13/20 17:50 Temperature Temperature Source Pulse Rate 107 H 105 H Pulse Rate [Left Finger] 102 H Pulse Rate from SpO2 Sensor 109 H 105 H Respiratory Rate 33 H 33 H 36 H Respiratory Effort / Characteristics Respiratory Pattern Blood Pressure 81/60 L 96/69 L Blood Pressure [Right Arm] 96/69 L Blood Pressure Mean 70 81 Blood Pressure Mean [Right Arm] 78 Pulse Oximetry 96 98 98 Oxygen Delivery Method Room Air Sepsis Recent Fever Within 48 Hours Sepsis New/Unexplained Change in Mental Status Sepsis Action Taken by Nursing 01/13/20 18:00 01/13/20 18:08 01/13/20 18:46 Temperature Temperature Source Pulse Rate 104 H 107 H Pulse Rate [Left Finger] 106 H Pulse Rate from SpO2 Sensor 105 H 108 H Respiratory Rate 33 H 24 38 H Respiratory Effort / Characteristics Respiratory Pattern Blood Pressure 101/62 99/66 L Blood Pressure [Right Arm] 101/62 Blood Pressure Mean 86 81 Blood Pressure Mean [Right Arm] 75 Pulse Oximetry 98 98 98 Oxygen Delivery Method Room Air Sepsis Recent Fever Within 48 Hours Sepsis New/Unexplained Change in Mental Status Sepsis Action Taken by Nursing 01/13/20 19:00 Temperature Temperature Source Pulse Rate 109 H Pulse Rate [Left Finger] Pulse Rate from SpO2 Sensor 109 H Respiratory Rate 38 H Respiratory Effort / Characteristics Respiratory Pattern Blood Pressure 110/71 Blood Pressure [Right Arm] Blood Pressure Mean 76 Blood Pressure Mean [Right Arm] Pulse Oximetry 98 Oxygen Delivery Method Sepsis Recent Fever Within 48 Hours Sepsis New/Unexplained Change in Mental Status Sepsis Action Taken by Nursing Laboratory Data Result diagrams: 01/13/20 17:34 01/13/20 17:34 Lab Results 01/13/20 01/13/20 01/13/20 Range/Units 17:34 17:34 17:34 WBC 16.50 H (4.8-10.8) K/uL RBC 4.47 (4.2-5.4) M/uL Hgb 10.8 L (12.0-16.0) g/dL Hct 37.0 (37-47) % MCV 82.8 (80-100) fL MCH 24.2 L (25-34) pg MCHC 29.2 L (32-36) g/dL RDW Std Deviation 70.6 H (36.4-46.3) fL RDW Coeff of Dahlia 23.8 H (11.5-14.5) % Plt Count 405 H (130-400) K/uL MPV 10.7 H (7.4-10.4) fL Immature Gran % (Auto) 2.4 % Neut % (Auto) 94.1 % Lymph % (Auto) 2.8 % Osborne % (Auto) 0.7 % Eos % (Auto) 0.0 % Baso % (Auto) 0.0 % Neut # (Auto) 15.52 H (1.4-6.5) K/uL Lymph # (Auto) 0.47 L (1.2-3.4) K/uL Osborne # (Auto) 0.11 (0.11-0.59) K/uL Eos # (Auto) 0.00 (0-0.5) K/uL Baso # (Auto) 0.00 (0-0.2) K/uL Immature Gran # (Auto) 0.40 H (0.00-0.02) K/uL Anisocytosis Present Sodium 141 (136-145) mmol/L Potassium 3.8 (3.5-5.1) mmol/L Chloride 111 H (98-107) mmol/L Carbon Dioxide 18 L (21-32) mmol/L Anion Gap 11.0 (3-11) BUN 44 H (7-18) mg/dl Creatinine 0.97 (0.6-1.2) mg/dl Est Cr Clr Drug Dosing Not Reportable Est GFR ( Amer) 70.5 Est GFR (Non-Af Amer) 60.9 BUN/Creatinine Ratio 45.3 H (10-20) Glucose 153 H (70-99) mg/dl Lactate 4.2 H* (0.4-2.0) mmol/L Calcium 8.0 L (8.5-10.1) mg/dl Total Bilirubin 0.6 (0.2-1) mg/dl AST 75 H (15-37) U/L ALT 24 (12-78) U/L Alkaline Phosphatase 160 H (45-117) U/L Troponin I < 0.015 (0-0.045) ng/ml Total Protein 6.0 L (6.4-8.2) gm/dl Albumin 2.1 L (3.4-5.0) gm/dl Globulin 3.9 (2.5-4.0) gm/dl Albumin/Globulin Ratio 0.5 L (0.9-2) Lipase 389 (73-393) U/L Administered Medications Sodium Chloride (Nss 1000ml) 1,000 mls @ 999 mls/hr IV .Q1H1M ONE Stop: 01/13/20 20:36 Last Admin: 01/13/20 19:43 Dose: 999 mls/hr Documented by: [id number] Discontinued Medications Fentanyl Citrate (Fentanyl Citrate 100 Mcg/2 Ml Vial) 50 mcg IV NOW STA Stop: 01/13/20 19:00 Last Admin: 01/13/20 19:05 Dose: 50 mcg Documented by: [id number] Sodium Chloride (Nss 1000ml) 2,000 mls @ 999 mls/hr IV .Q2H1M ONE Stop: 01/13/20 18:51 Last Infusion: 01/13/20 19:17 Dose: 0 mls/hr Documented by: [id number] Admin: 01/13/20 16:57 Dose: 999 mls/hr Documented by: [id number] Piperacillin Sod/Tazobactam Sod (Zosyn) 4.5 gm in 120 mls @ 240 mls/hr IV NOW ONE Stop: 01/13/20 17:42 Last Infusion: 01/13/20 19:17 Dose: 0 mls/hr Documented by: [id number] Admin: 01/13/20 17:41 Dose: 240 mls/hr Documented by: [id number] Ioversol (Optiray 320 125ml) 118 ml IV ONCE ONE Stop: 01/13/20 18:32 Last Admin: 01/13/20 18:31 Dose: 118 ml Documented by: [id number] Ondansetron HCl (Ondansetron Inj 2 Mg/Ml 2 Ml Vial) 4 mg IV NOW STA Stop: 01/13/20 17:11 Last Admin: 01/13/20 17:35 Dose: 4 mg Documented by: [id number] Discharge Plan Visit Data Chief Complaint: Abdominal Pain Stated Complaint: abd pain ED Provider: Valeriy Wright Discharge Problem: Sepsis, Metastatic adenocarcinoma to liver, Pneumoperitoneum, Bowel perforation, Abscess, Elevated lactic acid level, Pleural effusion Forms Stand Alone Forms: [facility] [employer] Prescriptions Prescriptions: No Action furosemide 20 mg tablet 40 mg PO QAM RF: 0 acetaminophen [Tylenol] 325 mg capsule 325 mg PO Q4H PRN (Reason: Mild Pain (Scale Score 1-4)) RF: 0 dexamethasone [Decadron] 4 mg tablet See Rx Instructions .ROUTE .COMPLEX PRN (Reason: Other) RF: 0 Saccharomyces boulardii [Florastor] 250 mg capsule 250 mg PO BIDM RF: 0 metoprolol tartrate 25 mg tablet 12.5 mg PO BID RF: 0 ondansetron HCl [Zofran] 8 mg tablet 8 mg PO Q8H PRN (Reason: Nausea And Vomiting) RF: 0 Eliquis 5 mg (74 tabs) tablets,dose pack 5 mg PO BID RF: 0 prochlorperazine maleate 10 mg tablet 10 mg PO Q6H PRN (Reason: Nausea) RF: 0 calcium polycarbophil [Fiber Therapy (ca polycarboph)] 625 mg Tablet 625 mg PO BID RF: 0 apixaban 5 mg Tablet 5 mg PO BID RF: 0 magnesium oxide 400 mg (241.3 mg magnesium) tablet 400 mg PO QAM RF: 0 potassium chloride [Klor-Con M10] 10 mEq tablet,ER particles/crystals 10 meq PO QAM RF: 0
[2020-01-13] MEDS ORDERED: PIPERACILLIN/TAZOBACTAM 4.5 GM/120 ML BAG IV ONE (17:13)
[2020-01-13] MEDS ORDERED: PIPERACILL/TAZOBAC CONSULT ACTIVE PRN (17:13)
[2020-01-13 17:46] LABS: Hemoglobin 10.8 g/dL (12.0-16.0); Immature Granulocytes % (auto) 2.4 %; Lymphocytes # (auto) 0.47 K/uL (1.2-3.4); Lymphocytes % (auto) 2.8 %; Mean Corpuscular Hemoglobin 24.2 pg (25-34); Mean Corpuscular Hgb Conc 29.2 g/dL (32-36); Mean Corpuscular Volume 82.8 fL (80-100); Mean Platelet Volume 10.7 fL (7.4-10.4); Monocytes # (auto) 0.11 K/uL (0.11-0.59); Monocytes % (auto) 0.7 %; Neutrophils # (auto) 15.52 K/uL (1.4-6.5); Neutrophils % (auto) 94.1 %; Platelet Count 405 K/uL (130-400); RDW Coefficient of Variation 23.8 % (11.5-14.5); RDW Standard Deviation 70.6 fL (36.4-46.3); Red Blood Count 4.47 M/uL (4.2-5.4)
[2020-01-13 18:04] LABS: Alanine Aminotransferase 24 U/L (12-78); Albumin Level 2.1 gm/dl (3.4-5.0); Aspartate Aminotransferase 75 U/L (15-37); BUN Creatinine Ratio 45.3 (10-20); Blood Urea Nitrogen 44 mg/dl (7-18); Carbon Dioxide 18 mmol/L (21-32); Chloride 111 mmol/L (98-107); Est GFR (African American) 70.5; Est GFR (Non-African American) 60.9; Glucose 153 mg/dl (70-99); Lipase 389 U/L (73-393); Potassium 3.8 mmol/L (3.5-5.1); Sodium 141 mmol/L (136-145)
[2020-01-13 18:08] LABS: Albumin Globulin Ratio 0.5 (0.9-2); Alkaline Phosphatase 160 U/L (45-117); Anisocytosis Present; Bilirubin,Total 0.6 mg/dl (0.2-1); Globulin 3.9 gm/dl (2.5-4.0); Troponin I < 0.015 ng/ml (0-0.045)
--- NOTE | 2020-01-13 18:09 | XRay Report ---
SINGLE VIEW CHEST CLINICAL HISTORY: Generalized abdominal pain. FINDINGS: An AP, portable, upright chest radiograph is compared to study dated 01/10/2020 and correlat ed with chest CT dated 10/20/2019. The examination is degraded by portable technique and patient rotati on. The cardiomediastinal silhouette is largely obscured. There is elevation of the right hemidiaphra gm with associated atelectasis of the right lower lung. A right pleural effusion is noted. Atelectasi s is at the left lung base. A hiatal hernia is observed. No pneumothorax is seen. The skeletal struct ures are osteopenic. The bony thorax is grossly intact. IMPRESSION: 1. There is persistent elevation of the right hemidiaphragm with atelectasis of the right lower lung. 2. There is a right pleural effusion. 3. The left lung appears clear noting basilar atelectasis. ACT 112: Negative or not required by law. Electronically signed by: Wellington Valentino M.D. 01/13/2020 6:08 PM
[2020-01-13] MEDS ORDERED: OPTIRAY 320 125ml IV ONE (18:31)
[2020-01-13] MEDS ORDERED: fentaNYL citrate 100 MCG/2 ML VIAL IV STA (18:59)
--- NOTE | 2020-01-13 19:05 | CT Scan Report ---
CT ANGIOGRAM OF THE CHEST; CT SCAN OF THE ABDOMEN AND PELVIS WITH IV CONTRAST CLINICAL HISTORY: Hypotension. Tachycardia. Generalized abdominal pain. COMPARISON STUDY: Chest CT dated. Abdominal CT dated 10/20/2019. TECHNIQUE: Following the IV administration of 118 of Optiray 320, CT angiogram of the chest is perfor med from the upper abdomen to the thoracic inlet utilizing the pulmonary embolus protocol. Images are reviewed in the axial, sagittal, coronal planes. 3-D MIPS images are created and assessed. Subsequen tly, CT scan of the abdomen and pelvis was performed from the lung bases to the proximal femora. Imag es are reviewed in the axial, sagittal, and coronal planes. IV contrast was administered without comp lication. A dose lowering technique was utilized adhering to the principles of ALARA. The examination is degraded by motion artifact. CT DOSE: 750.54 mGy.cm FINDINGS: CHEST: Thyroid: The thyroid gland is enlarged and heterogeneous. Numerous subcentimeter nodules are noted. Thoracic aorta: The thoracic aorta is normal in caliber and demonstrates standard 3-vessel arch anato my. No dissection is seen. Pulmonary vasculature: The pulmonary trunk is normal in caliber. There is a small amount of residual pulmonary embolus within the right lower lobe pulmonary artery seen on image #161. The remaining cent ral pulmonary vessels appear clear. Evaluation of the peripheral branches is significantly degraded b y motion artifact. Heart: The heart is normal in size and configuration, and without pericardial effusion. Lungs and pleural spaces: Evaluation of the lung parenchyma is compromised by motion artifact. There is elevation of right hemidiaphragm. There is a moderate right pleural effusion, with significant ate lectasis of the right lower lung. The left lung appears clear noting basilar scarring/atelectasis. Sc attered calcified granulomas are observed. Mediastinum: There is no mediastinal lymphadenopathy. Natividad: Clear. Axillae: There is no axillary lymphadenopathy. Bony thorax: The skeletal structures are osteopenic. Degenerative change is noted throughout the thor acic spine. No lytic or blastic lesions are identified. ABDOMEN AND PELVIS: Liver: The contrast-enhanced liver is enlarged, measuring 26.4 cm in length. Again seen is a large lo w attenuation hepatic mass lesion in the right lobe. This measures approximately 15 x 15.5 x 13.5 cm. A 1.5 cm lesion in the inferior right lobe of the liver seen on image #241 is new from previous. The re is no intrahepatic or ductal dilatation. The hepatic veins and portal veins are patent. Gallbladder: Unremarkable. Spleen: Normal in size and attenuation. There are scattered calcified splenic granulomas. Pancreas: Unremarkable. Adrenal glands: Unremarkable. Kidneys: The contrast enhanced kidneys demonstrate mild cortical atrophy and are without hydronephros is. The kidneys enhance symmetrically. Abdominal vasculature: The abdominal aorta is normal in course and caliber noting moderate atheroscle rotic calcification. Bowel and peritoneum: There are numerous small foci of intraperitoneal free air below the diaphragm a nd scattered throughout the abdomen. This is consistent with perforated viscus. There is loculated ga s and fluid identified in the pelvis. A thin crescentic/serpiginous fluid collection is identified ex tending from the right lower quadrant on image #388 into the deep central pelvis between the bladder and the rectum on image #438. This collection is typical in appearance for abscess and measures appro ximately 15 cm in maximum length end up to 2 cm in maximum width (axial image #441). An additional 2. 9 cm collection is seen superior to the sigmoid colon on image #381. Phlegmonous change in the ventra l pelvis on image #453 measures approximately 7 x 4.5 cm. This likely represents developing abscess. No bowel obstruction is identified. There are numerous thick walled loops of small bowel in the pelvi s, likely related to stress and peritonitis. The appendix is not clearly visualized on today's examin ation. There is diverticulosis of the sigmoid colon. There is trace perihepatic ascites. Lymphadenopathy: None. Pelvic viscera: The bladder wall appears mildly thickened and there is pericystic inflammation. The u terus is surgically absent. No adnexal lesion is seen. Skeletal structures: The skeletal structures are osteopenic. There is mild lumbosacral spondylosis. N o lytic or blastic lesions are seen. IMPRESSION: 1. There are numerous foci of intraperitoneal free air consistent with visceral perforation. 2. A multiloculated thin serpiginous fluid collection in the deep pelvis is consistent with abscess. A smaller abscess is seen superior to the sigmoid colon, and phlegmonous change in the ventral pelvis also likely represents developing abscess. 3. The site of perforation is not clearly identified. The appendix is not clearly visualized and ther e is diverticulosis of the sigmoid colon. Given the location the top differential considerations incl ude perforated appendicitis versus diverticulitis. Surgical consultation is advised. 4. There are numerous thick walled small bowel loops in the pelvis, likely related to adjacent infect ion/peritonitis. 5. The bladder wall is thickened and there is pericystic inflammation. Correlation with urinalysis wi ll be required. 6. There is a small amount of residual pulmonary embolus identified in the right lower lobe pulmonary artery. The burden of thrombus has significantly improved from the 10/20/2019 examination. 7. There is a moderate right pleural effusion with associated consolidation. This has increased from the 10/20/2019 examination. 8. A large mass lesion is again identified in the right lobe of the liver. 9. A 1.5 cm lesion in the inferior right lobe of the liver is new from previous. 10. Additional findings as above. ACT 112: Negative or not required by law. Electronically signed by: Wellington Valentino M.D. 01/13/2020 7:04 PM
[2020-01-13] MEDS ORDERED: SODIUM CHLORIDE 0.9% 1000ML 1,000 ML IV ONE (19:36)
[2020-01-13] MEDS ORDERED: MoRPHine SULF/NSS 250 MG/250 ML BTL IV PRN ×2 (20:02→22:43)
[2020-01-13] MEDS ORDERED: MoRPHine SULFATE 2 MG/ML CARP IV PRN (20:05)
[2020-01-13] MEDS ORDERED: MoRPHine SULFATE 4 MG/ML 1 ML CARP\\VIAL IV PRN (20:05)
--- NOTE | 2020-01-13 20:09 | Surgery Consultation ---
Date of Consultation January 13, 2020 Assessment & Plan (1) Pulmonary embolism: pt is a 64 year-old female who with significant co-morbidity with PE, metastatic liver cancer, large pleural effusion, with one day history acute abdominal pain. IMP: sepsis, bowel perforation peritonitis, large metastatic liver cancer, D/W benefits, risks and alternatives of the surgery treatment , but pt and her brother only want to get comfortable care, they dose not want to do any invasive procedure, pt is very poor candidate for surgery treatment, I agree with their decision, D/W ER attending Present on Admission?: Yes (2) Liver mass: (3) Sepsis: (4) Pleural effusion on right: (5) Bowel perforation: (6) Pneumoperitoneum: (7) Acute abdominal pain: History of Present Illness History of Present Illness CHIEF COMPLAINT: Abdominal pain HPI: Patient is a 64-year-old female with a past medical history of hypertension, hyperlipidemia, diastolic dysfunction, endometrial cancer d iagnosed in 2012, PEs diagnosed on 10/20/19 on Eliquis and a recently diagnosed liver mass deemed to be metastatic endometrial carcinoma who presents to the ER for sever abdominal pain. Patient notes that started earlier this morning. She is from [facility]. Last dose of chemotherapy was this past . She had her lung tapped this past week as well. She notes that the pain is througho ut her entire belly. She had several bowel movements but no improvement. She describes as constant and severe 10 out of 10. Admits to nausea but no vomiting. Denies any dysuria urgency or frequency. No fevers. Denies any chest pain or shortness of breath but notes the pain is taking her breath away. No other exacerbating or remitting factors. I ( Javier Elizabeth mD ) got a call for consult acute abdominal pain, I reviewed pt's H/P, labs, CT scan CXR with pt and her brother. ROS: See above HPI for pertinent positives & negatives. A total of 10 systems reviewed and were otherwise negative. PAST MEDICAL HISTORY: See Below PAST SURGICAL HISTORY: See Below FAMILY HISTORY: See Below SOCIAL HISTORY: See Below HOME MEDICATIONS: See Below ALLERGIES: See Below Allergies Allergy/AdvReac Type Severity Reaction Status Date / Time No Known Allergies Allergy Verified 01/13/20 18:08 Home Medications Home Medications Medication Instructions Recorded Confirmed Type Eliquis 5 mg PO BID 11/07/19 01/13/20 History Saccharomyces boulardii 250 mg 250 mg PO BIDM 01/04/20 01/13/20 History capsule acetaminophen 325 mg capsule 325 mg PO Q4H PRN 01/04/20 01/13/20 History dexamethasone 4 mg tablet See Rx Instructions .ROUTE 01/04/20 01/13/20 History .COMPLEX PRN furosemide 20 mg tablet 40 mg PO QAM tab 01/04/20 01/13/20 History metoprolol tartrate 25 mg tablet 12.5 mg PO BID 01/04/20 01/13/20 History ondansetron HCl 8 mg tablet 8 mg PO Q8H PRN tab 01/04/20 01/13/20 History apixaban 5 mg PO BID 01/13/20 01/13/20 History calcium polycarbophil [Fiber 625 mg PO BID 01/13/20 01/13/20 History Therapy (ca polycarboph)] magnesium oxide 400 mg PO QAM 01/13/20 01/13/20 History potassium chloride [Klor-Con M10] 10 meq PO QAM 01/13/20 01/13/20 History prochlorperazine maleate 10 mg PO Q6H PRN 01/13/20 01/13/20 History Patient History Medical History (Updated 01/13/20 @ 20:11 by Javier Elizabeth MD) Diastolic dysfunction History of endometrial cancer HLD (hyperlipidemia) HTN (hypertension) Liver cancer Surgical History H/O dilation and curettage History of colonoscopy last 2017 adenomatous and hyperplastic polyps History of hysterectomy History of liver biopsy Family History Brother Cancer Lung Father Cancer colon Mother Diabetes Other Heart disease Lung disease Denies family history of Tuberculosis Allergies Emphysema, unspecified Asthma Social History Smoking Status: Never smoker Second Hand Exposure: No (Exposure to secondhand smoke in past); Hx Alcohol Use: Yes Alcohol type: beer, wine and hard liquor Hx Substance Use: No Preferred Language: Citizen Of [place] Communication Ability: Effective Equipment Service Technician Required: No Beliefs That Will Affect Care: None Current Living Situation: Personal Care Facility Current Living Situation Comment: [facility] current occupational status: retired Feels Safe at Home: Yes Review of Systems Review of Systems: All systems reviewed & are unremarkable except as noted in HPI & below Constitutional: as per Subjective / HPI Eyes: as per Subjective / HPI Ear, Nose, Mouth, Throat: as per Subjective / HPI Respiratory: as per Subjective / HPI PE 10/2019, large right pleural effusion Cardiovascular: as per Subjective / HPI Additional Comments: HTN, diastolic dysfunction Gastrointestinal: as per Subjective / HPI large liver mass, liver mass biopsy on 10/2019, metastatic cancer Genitourinary: as per Subjective / HPI endometrial cancer, 2013 Musculoskeletal: as per Subjective / HPI Integumentary: as per Subjective / HPI Neurologic: as per Subjective / HPI Psychiatric: as per Subjective / HPI Endocrine: as per Subjective / HPI DM Hematologic / Lymphatic: as per Subjective / HPI Allergy / Immunological: as per Subjective / HPI Physical Exam Constitutional: + acute distress, + ill appearing and + cachectic Eyes: PERRL, conjunctivae normal, anicteric sclerae ENMT: external ear and nose normal, oropharynx normal Neck: trachea midline, no thyromegaly Respiratory: Auscultation: + diminished lung sounds (on right) Cardiovascular: RRR, no murmur, no edema Gastrointestinal (Abdomen): soft, diffuse tenderness with rebound pain, no distend, BS - Musculoskeletal: no cyanosis or clubbing, extremities motor strength 5/5 Skin: no rashes, warm and dry Neurologic: patellar DTR's 2+ bilat, sensation intact Psychiatric: Orientation: alert and oriented x 3 Results & Data ([facility]) Vital Signs (Past 12 Hours) Vital Signs Temp Pulse Pulse Resp BP BP Pulse Ox 01/13/20 19:00 109 H 38 H 110/71 98 01/13/20 18:46 107 H 38 H 99/66 L 98 01/13/20 18:08 106 H 24 101/62 98 01/13/20 18:00 104 H 33 H 101/62 98 01/13/20 17:50 102 H 36 H 96/69 L 98 01/13/20 17:49 105 H 33 H 96/69 L 98 01/13/20 17:42 107 H 33 H 81/60 L 96 01/13/20 17:37 112 H 36 H 81/60 L 95 01/13/20 17:34 116 H 33 H 81/60 L 94 01/13/20 16:43 126 H 24 90/56 L 97 01/13/20 16:42 128 H 31 H 90/66 L 96 01/13/20 16:30 136 H 57 H 85/61 L 94 01/13/20 16:20 36.5 C 142 H 36 H 85/56 L 94 Laboratory Results labs Abnormal lab results 01/13/20 01/13/20 01/13/20 Range/Units 17:34 17:34 17:34 WBC 16.50 H (4.8-10.8) K/uL Hgb 10.8 L (12.0-16.0) g/dL MCH 24.2 L (25-34) pg MCHC 29.2 L (32-36) g/dL RDW Std Deviation 70.6 H (36.4-46.3) fL RDW Coeff of Dahlia 23.8 H (11.5-14.5) % Plt Count 405 H (130-400) K/uL MPV 10.7 H (7.4-10.4) fL Neut # (Auto) 15.52 H (1.4-6.5) K/uL Lymph # (Auto) 0.47 L (1.2-3.4) K/uL Immature Gran # (Auto) 0.40 H (0.00-0.02) K/uL Chloride 111 H (98-107) mmol/L Carbon Dioxide 18 L (21-32) mmol/L BUN 44 H (7-18) mg/dl BUN/Creatinine Ratio 45.3 H (10-20) Glucose 153 H (70-99) mg/dl Lactate 4.2 H* (0.4-2.0) mmol/L Calcium 8.0 L (8.5-10.1) mg/dl AST 75 H (15-37) U/L Alkaline Phosphatase 160 H (45-117) U/L Total Protein 6.0 L (6.4-8.2) gm/dl Albumin 2.1 L (3.4-5.0) gm/dl Albumin/Globulin Ratio 0.5 L (0.9-2) Diagnostic Findings CT ANGIOGRAM OF THE CHEST; CT SCAN OF THE ABDOMEN AND PELVIS WITH IV CONTRAST CLINICAL HISTORY: Hypotension. Tachycardia. Generalized abdominal pain. COMPARISON STUDY: Chest CT dated. Abdominal CT dated 10/20/2019. TECHNIQUE: Following the IV administration of 118 of Optiray 320, CT angiogram of the chest is performed from the upper abdomen to the thoracic inlet utilizing the pulmonary embolus protocol. Images are reviewed in the axial, sagittal, coronal planes. 3-D MIPS images are created and assessed. Subsequently, CT scan of the abdomen and pelvis was performed from the lung bases to the proximal femora. Images are reviewed in the axial, sagittal, and coronal planes. IV contrast was administered without complication. A dose lowering technique was utilized adhering to the principles of ALARA. The examination is degraded by motion artifact. CT DOSE: 750.54 mGy.cm FINDINGS: CHEST: Thyroid: The thyroid gland is enlarged and heterogeneous. Numerous subcentimeter nodules are noted. Thoracic aorta: The thoracic aorta is normal in caliber and demonstrates standard 3-vessel arch anatomy. No dissection is seen. Pulmonary vasculature: The pulmonary trunk is normal in caliber. There is a small amount of residual pulmonary embolus within the right lower lobe pulmonary artery seen on image #161. The remaining central pulmonary vessels appear clear. Evaluation of the peripheral branches is significantly degraded by motion artifact. Heart: The heart is normal in size and configuration, and without pericardial effusion. Lungs and pleural spaces: Evaluation of the lung parenchyma is compromised by motion artifact. There is elevation of right hemidiaphragm. There is a moderate right pleural effusion, with significant atelectasis of the right lower lung. The left lung appears clear noting basilar scarring/atelectasis. Scattered calcified granulomas are observed. Mediastinum: There is no mediastinal lymphadenopathy. Natividad: Clear. Axillae: There is no axillary lymphadenopathy. Bony thorax: The skeletal structures are osteopenic. Degenerative change is noted throughout the thoracic spine. No lytic or blastic lesions are identified. ABDOMEN AND PELVIS: Liver: The contrast-enhanced liver is enlarged, measuring 26.4 cm in length. Again seen is a large low attenuation hepatic mass lesion in the right lobe. This measures approximately 15 x 15.5 x 13.5 cm. A 1.5 cm lesion in the inferior right lobe of the liver seen on image #241 is new from previous. There is no intrahepatic or ductal dilatation. The hepatic veins and portal veins are patent. Gallbladder: Unremarkable. Spleen: Normal in size and attenuation. There are scattered calcified splenic granulomas. Pancreas: Unremarkable. Adrenal glands: Unremarkable. Kidneys: The contrast enhanced kidneys demonstrate mild cortical atrophy and are without hydronephrosis. The kidneys enhance symmetrically. Abdominal vasculature: The abdominal aorta is normal in course and caliber noting moderate atherosclerotic calcification. Bowel and peritoneum: There are numerous small foci of intraperitoneal free air below the diaphragm and scattered throughout the abdomen. This is consistent with perforated viscus. There is loculated gas and fluid identified in the pelvis. A thin crescentic/serpiginous fluid collection is identified extending from the right lower quadrant on image #388 into the deep central pelvis between the bladder and the rectum on image #438. This collection is typical in appearance for abscess and measures approximately 15 cm in maximum length end up to 2 cm in maximum width (axial image #441). An additional 2.9 cm collection is seen superior to the sigmoid colon on image #381. Phlegmonous change in the vent ral pelvis on image #453 measures approximately 7 x 4.5 cm. This likely represents developing abscess. No bowel obstruction is identified. There are numerous thick walled loops of small bowel in the pelvis, likely related to stress and peritonitis. The appendix is not clearly visualized on today's examination. There is diverticulosis of the sigmoid colon. There is trace perihepatic ascites. Lymphadenopathy: None. Pelvic viscera: The bladder wall appears mildly thickened and there is pericystic inflammation. The uterus is surgically absent. No adnexal lesion is seen. Skeletal structures: The skeletal structures are osteopenic. There is mild lumbosacral spondylosis. No lytic or blastic lesions are seen. IMPRESSION: 1. There are numerous foci of intraperitoneal free air consistent with visceral perforation. 2. A multiloculated thin serpiginous fluid collection in the deep pelvis is consistent with abscess. A smaller abscess is seen superior to the sigmoid colon, and phlegmonous change in the ventral pelvis also likely represents developing abscess. 3. The site of perforation is not clearly identified. The appendix is not clearly visualized and there is diverticulosis of the sigmoid colon. Given the location the top differential considerations include perforated appendicitis versus diverticulitis. Surgical consultation is advised. 4. There are numerous thick walled small bowel loops in the pelvis, likely related to adjacent infection/peritonitis. 5. The bladder wall is thickened and there is pericystic inflammation. Correlation with urinalysis will be required. 6. There is a small amount of residual pulmonary embolus identified in the right lower lobe pulmonary artery. The burden of thrombus has significantly improved from the 10/20/2019 examination. 7. There is a moderate right pleural effusion with associated consolidation. This has increased from the 10/20/2019 examination. 8. A large mass lesion is again identified in the right lobe of the liver. 9. A 1.5 cm lesion in the inferior right lobe of the liver is new from previous. 10. Additional findings as above. CT ANGIOGRAM OF THE CHEST; CT SCAN OF THE ABDOMEN AND PELVIS WITH IV CONTRAST CLINICAL HISTORY: Hypotension. Tachycardia. Generalized abdominal pain. COMPARISON STUDY: Chest CT dated. Abdominal CT dated 10/20/2019. TECHNIQUE: Following the IV administration of 118 of Optiray 320, CT angiogram of the chest is performed from the upper abdomen to the thoracic inlet utilizing the pulmonary embolus protocol. Images are reviewed in the axial, sagittal, coronal planes. 3-D MIPS images are created and assessed. Subsequently, CT scan of the abdomen and pelvis was performed from the lung bases to the proximal femora. Images are reviewed in the axial, sagittal, and coronal planes. IV contrast was administered without complication. A dose lowering technique was utilized adhering to the principles of ALARA. The examination is degraded by motion artifact. CT DOSE: 750.54 mGy.cm FINDINGS: CHEST: Thyroid: The thyroid gland is enlarged and heterogeneous. Numerous subcentimeter nodules are noted. Thoracic aorta: The thoracic aorta is normal in caliber and demonstrates standard 3-vessel arch anatomy. No dissection is seen. Pulmonary vasculature: The pulmonary trunk is normal in caliber. There is a small amount of residual pulmonary embolus within the right lower lobe pulmonary artery seen on image #161. The remaining central pulmonary vessels appear clear. Evaluation of the peripheral branches is significantly degraded by motion artifact. Heart: The heart is normal in size and configuration, and without pericardial effusion. Lungs and pleural spaces: Evaluation of the lung parenchyma is compromised by motion artifact. There is elevation of right hemidiaphragm. There is a moderate right pleural effusion, with significant atelectasis of the right lower lung. The left lung appears clear noting basilar scarring/atelectasis. Scattered calcified granulomas are observed. Mediastinum: There is no mediastinal lymphadenopathy. Natividad: Clear. Axillae: There is no axillary lymphadenopathy. Bony thorax: The skeletal structures are osteopenic. Degenerative change is noted throughout the thoracic spine. No lytic or blastic lesions are identified. ABDOMEN AND PELVIS: Liver: The contrast-enhanced liver is enlarged, measuring 26.4 cm in length. Again seen is a large low attenuation hepatic mass lesion in the right lobe. This measures approximately 15 x 15.5 x 13.5 cm. A 1.5 cm lesion in the inferior right lobe of the liver seen on image #241 is new from previous. There is no intrahepatic or ductal dilatation. The hepatic veins and portal veins are patent. Gallbladder: Unremarkable. Spleen: Normal in size and attenuation. There are scattered calcified splenic granulomas. Pancreas: Unremarkable. Adrenal glands: Unremarkable. Kidneys: The contrast enhanced kidneys demonstrate mild cortical atrophy and are without hydronephrosis. The kidneys enhance symmetrically. Abdominal vasculature: The abdominal aorta is normal in course and caliber noting moderate atherosclerotic calcification. Bowel and peritoneum: There are numerous small foci of intraperitoneal free air below the diaphragm and scattered throughout the abdomen. This is consistent with perforated viscus. There is loculated gas and fluid identified in the pelvis. A thin crescentic/serpiginous fluid collection is identified extending from the right lower quadrant on image #388 into the deep central pelvis between the bladder and the rectum on image #438. This collection is typical in appearan ce for abscess and measures approximately 15 cm in maximum length end up to 2 cm in maximum width (axial image #441). An additional 2.9 cm collection is seen superior to the sigmoid colon on image #381. Phlegmonous change in the ventral pelvis on image #453 measures approximately 7 x 4.5 cm. This likely represents developing abscess. No bowel obstruction is identified. There are numerous thick walled loops of small bowel in the pelvis, likely related to stress and peritonitis. The appendix is not clearly visualized on today's examination. There is diverticulosis of the sigmoid colon. There is trace perihepatic ascites. Lymphadenopathy: None. Pelvic viscera: The bladder wall appears mildly thickened and there is pericystic inflammation. The uterus is surgically absent. No adnexal lesion is seen. Skeletal structures: The skeletal structures are osteopenic. There is mild lumbosacral spondylosis. No lytic or blastic lesions are seen.
--- NOTE | 2020-01-13 21:03 | History & Physical Report ---
Date of Service January 13, 2020 Assessment & Plan (1) Acute abdominal pain: Admission and Anticipated Discharge Date Admission Date: Acute abdominal pain secondary to perforated viscus, intra- abdominal abscess, peritonitis Endometrial cancer with liver metastasis Comfort measures status only CT abdomen pelvis: 1. There are numerous foci of intraperitoneal free air consistent with visceral perforation. 2. A multiloculated thin serpiginous fluid collection in the deep pelvis is consistent with abscess. A smaller abscess is seen superior to the sigmoid colon, and phlegmonous change in the ventral pelvis also likely represents developing abscess. 3. The site of perforation is not clearly identified. The appendix is not clearly visualized and there is diverticulosis of the sigmoid colon. Given the location the top differential considerations include perforated appendicitis versus diverticulitis. Surgical consultation is advised. 4. There are numerous thick walled small bowel loops in the pelvis, likely related to adjacent infection/peritonitis. 5. The bladder wall is thickened and there is pericystic inflammation. Correlation with urinalysis will be required. 6. There is a small amount of residual pulmonary embolus identified in the right lower lobe pulmonary artery. The burden of thrombus has significantly improved from the 10/20/2019 examination. 7. There is a moderate right pleural effusion with associated consolidation. T his has increased from the 10/20/2019 examination. 8. A large mass lesion is again identified in the right lobe of the liver. 9. A 1.5 cm lesion in the inferior right lobe of the liver is new from previous. --Discussed with patient and family regarding comfort measures--> no vital signs, blood work, usual medications except Lasix --Morphine drip, PRN Ativan, scopolamine patch, atropine drops --Patient and family is understanding, agreeable, comfortable with plan of care History of PE on Eliquis Hypertension Dyslipidemia Paroxysmal atrial tachycardia --Will DC Eliquis, metoprolol Avlarado Adrian MD History of Present Illness 64-year-old female with history of endometrial carcinoma, with liver mets, on chemo, History of PE on Eliquis, presenting with abdominal pain. Patient currently undergoing chemotherapy for endometrial carcinoma with liver mets under the care of Dr. Vincent. She also underwent thoracentesis last week. Patient developed abdominal pain since yesterday prompting consult to the ER. The abdomen and pelvis showed signs of perforated viscus, with intra-abdominal abscess. Patient was noted to be hypotensive at the ER as well. General surgery consulted, recommend transfer to tertiary care facility. Prolonged discussion with patient and family, the patient has decided to transition to comfort measures status only. Morphine drip started in the ER. On exam, the patient is awake, alert, oriented x3, reporting significant abdominal pain and mild shortness of breath secondary to pain. No other symptoms Primary Care Provider: Artemio Narvaez MD Allergies Allergy/AdvReac Type Severity Reaction Status Date / Time No Known Allergies Allergy Verified 01/13/20 18:08 Home Medications Home Medications Medication Instructions Recorded Confirmed Type Eliquis 5 mg PO BID 11/07/19 01/13/20 History Saccharomyces boulardii 250 mg 250 mg PO BIDM 01/04/20 01/13/20 History capsule acetaminophen 325 mg capsule 325 mg PO Q4H PRN 01/04/20 01/13/20 History dexamethasone 4 mg tablet See Rx Instructions .ROUTE 01/04/20 01/13/20 History .COMPLEX PRN furosemide 20 mg tablet 40 mg PO QAM tab 01/04/20 01/13/20 History metoprolol tartrate 25 mg tablet 12.5 mg PO BID 01/04/20 01/13/20 History ondansetron HCl 8 mg tablet 8 mg PO Q8H PRN tab 01/04/20 01/13/20 History apixaban 5 mg PO BID 01/13/20 01/13/20 History calcium polycarbophil [Fiber 625 mg PO BID 01/13/20 01/13/20 History Therapy (ca polycarboph)] magnesium oxide 400 mg PO QAM 01/13/20 01/13/20 History potassium chloride [Klor-Con M10] 10 meq PO QAM 01/13/20 01/13/20 History prochlorperazine maleate 10 mg PO Q6H PRN 01/13/20 01/13/20 History Past Med/Surg History Medical History (Updated 01/13/20 @ 20:11 by Javier Elizabeth MD) Diastolic dysfunction History of endometrial cancer HLD (hyperlipidemia) HTN (hypertension) Liver cancer Surgical History H/O dilation and curettage History of colonoscopy last 2017 adenomatous and hyperplastic polyps History of hysterectomy History of liver biopsy Family History Brother Cancer Lung Father Cancer colon Mother Diabetes Other Heart disease Lung disease Denies family history of Tuberculosis Allergies Emphysema, unspecified Asthma Social History Smoking Status: Never smoker Second Hand Exposure: No (Exposure to secondhand smoke in past); Hx Alcohol Use: Yes Alcohol type: beer, wine and hard liquor Hx Substance Use: No Preferred Language: Urdu Communication Ability: Effective Chair Car Attendant Required: No Beliefs That Will Affect Care: None Current Living Situation: Alone [facility] current occupational status: retired Feels Safe at Home: Yes Safety Concerns: Feels Safe At This Time Review of Systems Review of Systems: All systems reviewed & are unremarkable except as noted in HPI & below Physical Exam Physical Exam: General- oriented x 3, uncomfortable secondary to abdominal pain, speaks in sentences with no effort or accessory muscle use Head- atraumatic Eyes- PERRL, EOMI, anicteric ENT- oropharynx clear Neck- supple, no JVD, no adenopathy, no thyromegaly; carotids +2/2, no bruits appreciated Lungs- clear to auscultation bilaterally, no rales/wheezes Heart-tachycardic, regular rhythm; no murmur, no gallop, no rub appreciated Abdomen- normal bowel sounds, nondistended, soft, positive significant generalized tenderness Extremities- no pretibial edema, no calf tenderness; peripheral pulses intact Neuro- alert, oriented x 3; CN 2-12 grossly intact; motor 5/5 bilaterally;sensation 100% on all extremities; no other gross focal neurologic deficits Skin- warm & dry Results & Data Results & Data ([facility]) Vital Signs (Past 12 Hours) Vital Signs Temp Pulse Pulse Resp BP BP Pulse Ox 01/13/20 20:30 107 H 28 H 95/63 L 01/13/20 20:01 106 H 36 H 104/72 01/13/20 19:41 113 H 37 H 79/54 L 01/13/20 19:30 110 H 38 H 86/56 L 95 01/13/20 19:00 109 H 38 H 110/71 98 01/13/20 18:46 107 H 38 H 99/66 L 98 01/13/20 18:08 106 H 24 101/62 98 01/13/20 18:00 104 H 33 H 101/62 98 01/13/20 17:50 102 H 36 H 96/69 L 98 01/13/20 17:49 105 H 33 H 96/69 L 98 01/13/20 17:42 107 H 33 H 81/60 L 96 01/13/20 17:37 112 H 36 H 81/60 L 95 01/13/20 17:34 116 H 33 H 81/60 L 94 01/13/20 16:43 126 H 24 90/56 L 97 01/13/20 16:42 128 H 31 H 90/66 L 96 01/13/20 16:30 136 H 57 H 85/61 L 94 01/13/20 16:20 36.5 C 142 H 36 H 85/56 L 94 Laboratory Results Laboratory Results - last 24 hr 01/13/20 01/13/20 01/13/20 17:34 17:34 17:34 WBC 16.50 H RBC 4.47 Hgb 10.8 L Hct 37.0 MCV 82.8 MCH 24.2 L MCHC 29.2 L RDW Std Deviation 70.6 H RDW Coeff of Dahlia 23.8 H Plt Count 405 H MPV 10.7 H Immature Gran % (Auto) 2.4 Neut % (Auto) 94.1 Lymph % (Auto) 2.8 [place] % (Auto) 0.7 Eos % (Auto) 0.0 Baso % (Auto) 0.0 Neut # (Auto) 15.52 H Lymph # (Auto) 0.47 L [place] # (Auto) 0.11 Eos # (Auto) 0.00 Baso # (Auto) 0.00 Immature Gran # (Auto) 0.40 H Anisocytosis Present Sodium 141 Potassium 3.8 Chloride 111 H Carbon Dioxide 18 L Anion Gap 11.0 BUN 44 H Creatinine 0.97 Est Cr Clr Drug Dosing Not Reportable Est GFR ( Amer) 70.5 Est GFR (Non-Af Amer) 60.9 BUN/Creatinine Ratio 45.3 H Glucose 153 H Lactate 4.2 H* Calcium 8.0 L Total Bilirubin 0.6 AST 75 H ALT 24 Alkaline Phosphatase 160 H Troponin I < 0.015 Total Protein 6.0 L Albumin 2.1 L Globulin 3.9 Albumin/Globulin Ratio 0.5 L Lipase 389 Code Status & VTE Plan VTE Prophylaxis Plan VTE Prophylaxis will be ordered: No
[2020-01-13] MEDS ORDERED: SCOPOLAMINE 1.5 MG TDSY TD PRN (22:43)
[2020-01-13] MEDS ORDERED: LORazepam 1 MG/2 ML VIAL IV PRN (22:43)
[2020-01-13] MEDS ORDERED: ATROPINE SULFATE 1% OP SOLN 2 ML BTL SL PRN (22:43)
[2020-01-13] MEDS ORDERED: ONDANSETRON INJ 2 MG/ML 2 ML VIAL IV PRN (22:43)
[2020-01-13] MEDS ORDERED: FUROSEMIDE 20 MG in SYRINGE 0 ML IV PRN (23:54)
[2020-01-14] MEDS ORDERED: LORazepam 0.5 MG TAB PO PRN (00:07)
[2020-01-14] MEDS ORDERED: LORazepam 0.5 MG/1 ML VIAL IV PRN (00:07)
[2020-01-14] MEDS ORDERED: ONDANSETRON INJ 2 MG/ML 2 ML VIAL IV PRN (00:07)
[2020-01-14] MEDS ORDERED: ONDANSETRON 4 MG OD TAB SL PRN (00:07)
[2020-01-14] MEDS: FUROSEMIDE 20 MG in SYRINGE 0 ML IV SCH (08:07)
[2020-01-14] MEDS: CHECK SCOPOLAMINE PATCH PLACEMENT SCH ×2 (08:07→16:12)
--- NOTE | 2020-01-14 15:54 | Hospitalist Progress Note ---
Date of Service January 14, 2020 Assessment & Plan (1) Acute abdominal pain: (2) Endometrial adenocarcinoma: (3) Metastatic adenocarcinoma to liver: Acute abdominal pain secondary to visceral perforation, intra-abdominal abscess, peritonitis Endometrial cancer with liver metastasis Comfort measures status only CT abdomen pelvis: 1. There are numerous foci of intraperitoneal free air consistent with visceral perforation. 2. A multiloculated thin serpiginous fluid collection in the deep pelvis is consistent with abscess. A smaller abscess is seen superior to the sigmoid colon, and phlegmonous change in the ventral pelvis also likely represents developing abscess. 3. The site of perforation is not clearly identified. The appendix is not clearly visualized and there is diverticulosis of the sigmoid colon. Given the location the top differential considerations include perforated appendicitis versus diverticulitis. Surgical consultation is advised. 4. There are numerous thick walled small bowel loops in the pelvis, likely related to adjacent infection/peritonitis. 5. The bladder wall is thickened and there is pericystic inflammation. Correlation with urinalysis will be required. 6. There is a small amount of residual pulmonary embolus identified in the right lower lobe pulmonary artery. The burden of thrombus has significantly improved from the 10/20/2019 examination. 7. There is a moderate right pleural effusion with associated consolidation. This has increased from the 10/20/2019 examination. 8. A large mass lesion is again identified in the right lobe of the liver. 9. A 1.5 cm lesion in the inferior right lobe of the liver is new from previous. --Admitting provider discussed with patient and family regarding comfort measures--> no vital signs, blood work, usual medications --Morphine drip, PRN Ativan, scopolamine patch, atropine drops --Patient and family is understanding, agreeable, comfortable with plan of care History of PE on Eliquis Hypertension Dyslipidemia Paroxysmal atrial tachycardia --Will DC Eliquis, metoprolol Palliative medicine consulted on admission Currently patient is not responding to verbal or tactile stimuli. She is on IV morphine. Family updated outside of patient's room, understanding, agreeable and comfortable with plan of care. Admission and Anticipated Discharge Date Admission Date: January 13, 2020 Subjective Patient is lying in bed, not responding to verbal stimuli or tactile stimuli. Nursing staff at the bedside. Family outside of the room updated. Review of Systems Review of Systems: Unobtainable due to reduced consciousness Physical Exam 2 Physical Exam: General- elderly female lying in bed, not responding to verbal or tactile stimuli, patient is on IV morphine Head-normocephalic, atraumatic Eyes- anicteric Lungs- clear to auscultation bilaterally Heart- tachycardic, regular rhythm; no murmur, no gallop, no rub appreciated Abdomen- + bowel sounds, +distended Extremities- no pretibial edema, warm Neuro- not responding to verbal or tactile stimuli Skin- warm & dry
[2020-01-14] MEDS: ATROPINE SULFATE 1% OP SOLN 2 ML BTL SL PRN ×2 (16:12→20:13)
[2020-01-15] MEDS: CHECK SCOPOLAMINE PATCH PLACEMENT SCH ×2 (00:03→07:30)
[2020-01-15] MEDS: FUROSEMIDE 20 MG in SYRINGE 0 ML IV SCH (08:26)
--- NOTE | 2020-01-15 10:05 | Palliative Care Consultation ---
Date of Consultation January 15, 2020 Assessment & Plan (1) Goals of care, counseling/discussion: This is a 64 year old female who presented to the hospital from home with increased abdominal pain for the past few days. The patient has a PMH of endometrial cancer with liver mets for which she did undergo chemotherapy through this summer under Dr. Vincent's care and was relatively independent, but per family has shown decline over the past few months. Additional PMH includes: HTN, PE, HLD, Atrial tachycardia.On admission, an abdominal CT scan was obtained and results indicated a perforated viscus with intra-abdominal abscess. The patient also had HTN in the ED. Lengthy conversation was held with family and they opted for transition to comfort measures only. In the ED, comfort medications, including a Morphine drip was started. -I met with the patient in room 312. Two brothers, Harjit and Raymond were at the bedside. -Patient is fully obtunded, neck tilted back, mouth and eyes slightly open with no response. -Patient with shallow agonal breathing with pauses up to 5-10 seconds. -Patients knees are mottled. Some audible secretions noted. -Patient is on a Morphine drip, currently infusing at 5mg/hour. She appears comfortable with no furrowed brow or additional signs of pain. -End of life symptoms discussed with the family. All questions answered. Pt is DNR/DNI -Likely hours to one day of life remaining. Pt not stable for out of hospital transfer. Not a GIP candidate as symptoms managed on Morphine gtt. -PPS 10% (2) Endometrial adenocarcinoma: (3) Metastatic adenocarcinoma to liver: (4) Pleural effusion: (5) Sepsis: (6) Bowel perforation: History of Present Illness Reason for Consultation: Goals of care Requesting Physician: Dr. Vázquez Attending Physician: Clive Vázquez MD History of Present Illness This is a 64 year old female who presented to the hospital from home with increased abdominal pain for the past few days. The patient has a PMH of endometrial cancer with liver mets for which she did undergo chemotherapy t hrough this summer under Dr. Vincent's care and was relatively independent, but per family has shown decline over the past few months. Additional PMH includes: HTN, PE, HLD, Atrial tachycardia.On admission, an abdominal CT scan was obtained and results indicated a perforated viscus with intra-abdominal abscess. The patient also had HTN in the ED. Lengthy conversation was held with family and they opted for transition to comfort measures only. In the ED, comfort medications, including a Morphine drip was started. Please see A/P for further details. Thank you kindly for involving the palliative care team with this patient. Allergies Allergy/AdvReac Type Severity Reaction Status Date / Time No Known Allergies Allergy Verified 01/13/20 18:08 Home Medications Home Medications Medication Instructions Recorded Confirmed Type Eliquis 5 mg PO BID 11/07/19 01/13/20 History Saccharomyces boulardii 250 mg 250 mg PO BIDM 01/04/20 01/13/20 History capsule acetaminophen 325 mg capsule 325 mg PO Q4H PRN 01/04/20 01/13/20 History dexamethasone 4 mg tablet See Rx Instructions .ROUTE 01/04/20 01/13/20 History .COMPLEX PRN furosemide 20 mg tablet 40 mg PO QAM tab 01/04/20 01/13/20 History metoprolol tartrate 25 mg tablet 12.5 mg PO BID 01/04/20 01/13/20 History ondansetron HCl 8 mg tablet 8 mg PO Q8H PRN tab 01/04/20 01/13/20 History apixaban 5 mg PO BID 01/13/20 01/13/20 History calcium polycarbophil [Fiber 625 mg PO BID 01/13/20 01/13/20 History Therapy (ca polycarboph)] magnesium oxide 400 mg PO QAM 01/13/20 01/13/20 History potassium chloride [Klor-Con M10] 10 meq PO QAM 01/13/20 01/13/20 History prochlorperazine maleate 10 mg PO Q6H PRN 01/13/20 01/13/20 History Patient History Medical History (Updated 01/15/20 @ 11:35 by GLENN Montilla) Diastolic dysfunction Goals of care, counseling/discussion History of endometrial cancer HLD (hyperlipidemia) HTN (hypertension) Liver cancer Surgical History H/O dilation and curettage History of colonoscopy last 2017 adenomatous and hyperplastic polyps History of hysterectomy History of liver biopsy Family History Brother Cancer Lung Father Cancer colon Mother Diabetes Other Heart disease Lung disease Denies family history of Tuberculosis Allergies Emphysema, unspecified Asthma Social History Smoking Status: Never smoker Second Hand Exposure: No (Exposure to secondhand smoke in past); Hx Alcohol Use: Yes Alcohol type: beer, wine and hard liquor Hx Substance Use: No Preferred Language: Angolan Communication Ability: Effective Material Control Associate Required: No Beliefs That Will Affect Care: None Current Living Situation: Alone Current Living Situation Comment: [facility] current occupational status: retired Feels Safe at Home: Yes Safety Concerns: Feels Safe At This Time Review of Systems Review of Systems: Unobtainable due to reduced consciousness Physical Exam Constitutional: + ill appearing, + thin, + cachectic, + frail appearing and + lethargic Respiratory: + labored breathing and + uses accessory muscles; + asymmetric chest movement lance-sánchez breathing Cardiovascular: RRR, no murmur, no edema Heart Sounds: normal S1 and normal S2 Extremities: + abnormal capillary refill and no pedal edema Gastrointestinal (Abdomen): normal bowel sounds, soft, nontender, no hepatosplenomegaly Skin: + pallor (fuentes) Psychiatric: A+Ox3, euthymic affect Orientation: + not alert Results & Data ([facility]) Vital Signs (Past 12 Hours) Vital Signs Resp 01/15/20 07:18 12 PG Care Time/CCT Total # of Minutes Spent Total Time Spent with Patient: Total time spent is greater than 50% in coordination of care (as documented) at patient's floor/unit and/or counseling patient: 70 Coding Level of Care Code 04789 Inpt Consult Level 3 Diagnoses Goals of care, counseling/discussion Z71.89 Endometrial adenocarcinoma C54.1 Metastatic adenocarcinoma to liver C78.7 Pleural effusion J90 Sepsis A41.9 Bowel perforation K63.1 Time Spent (min) 70 Time Spent Midlevel Total time spent 70 minutes with > 50% of that time spent assessing the patient, discussing end of life symptoms and providing support to family
[2020-01-15] MEDS: ATROPINE SULFATE 1% OP SOLN 2 ML BTL SL PRN ×2 (12:12→14:46)
--- NOTE | 2020-01-15 15:38 | Hospitalist Progress Note ---
Date of Service January 15, 2020 Assessment & Plan (1) Acute abdominal pain: Sepsis, POA in the setting of intra-abdominal abscess, visceral perforation, and peritonitis Met sepsis criteria on admission (2) Endometrial adenocarcinoma: (3) Metastatic adenocarcinoma to liver: Acute abdominal pain secondary to visceral perforation, intra-abdominal abscess, peritonitis Endometrial cancer with liver metastasis Comfort measures status only CT abdomen pelvis: 1. There are numerous foci of intraperitoneal free air consistent with visceral perforation. 2. A multiloculated thin serpiginous fluid collection in the deep pelvis is consistent with abscess. A smaller abscess is seen superior to the sigmoid colon, and phlegmonous change in the ventral pelvis also likely represents developing abscess. 3. The site of perforation is not clearly identified. The appendix is not clearly visualized and there is diverticulosis of the sigmoid colon. Given the location the top differential considerations include perforated appendicitis versus diverticulitis. Surgical consultation is advised. 4. There are numerous thick walled small bowel loops in the pelvis, likely related to adjacent infection/peritonitis. 5. The bladder wall is thickened and there is pericystic inflammation. Correlation with urinalysis will be required. 6. There is a small amount of residual pulmonary embolus identified in the right lower lobe pulmonary artery. The burden of thrombus has significantly improved from the 10/20/2019 examination. 7. There is a moderate right pleural effusion with associated consolidation. This has increased from the 10/20/2019 examination. 8. A large mass lesion is again identified in the right lobe of the liver. 9. A 1.5 cm lesion in the inferior right lobe of the liver is new from previous. --Appreciate palliative care input and recommendation --Morphine drip, PRN Ativan, scopolamine patch, atropine drops --Patient and family is understanding, agreeable, comfortable with plan of care --He is comfortable and will continue comfort care History of PE on Eliquis Hypertension Dyslipidemia Paroxysmal atrial tachycardia --Will DC Eliquis, metoprolol Palliative medicine consulted on admission Currently patient is not responding to verbal or tactile stimuli. She is on IV morphine. Family updated outside of patient's room, understanding, agreeable and comfortable with plan of care. Discussed with the family members Admission and Anticipated Discharge Date Admission Date: January 13, 2020 Subjective 01/15/2020 The patient was seen and examined in medical floor She remains comfort with comfort care only Review of Systems Review of Systems: Unobtainable due to reduced consciousness Physical Exam Physical Exam: Lying in bed with shortness of breath Constitutional: + ill appearing Eyes: Remains unconscious Respiratory: + respiratory distress and + labored breathing Cardiovascular: Rate/Rhythm: regular rate and regular rhythm Heart Sounds: no murmur Gastrointestinal (Abdomen): Inspection/Auscultation: + abdomen distended Neurologic: Remains unconscious Results & Data Results & Data ([facility]) Vital Signs (Past 12 Hours) Vital Signs Resp 01/15/20 07:18 12 Medications Administered Current Inpatient Medications Atropine Sulfate (Atropine Sulfate 1% Op Soln 2 Ml Btl) 4 drops SL Q1H PRN PRN Reason: Secretions or Pulm Congestion Stop: 02/13/20 00:06 Last Admin: 01/15/20 14:46 Dose: 4 drops Documented by: Morphine Sulfate (Morphine Sulf/Nss) 250 mg in 250 mls @ 5 mls/hr IV .Q50H PRN; Protocol PRN Reason: Pain Stop: 01/27/20 22:42 Last Titration: 01/15/20 07:21 Dose: 5 mg/hr, 5 mls/hr Documented by: Furosemide 20 mg/ Syringe 2 mls @ 4 mls/min IV DAILY JUN Stop: 02/13/20 08:59 Last Admin: 01/15/20 08:26 Dose: 4 mls/min Documented by: Furosemide 20 mg/ Syringe 2 mls @ 4 mls/min IV Q12H PRN PRN Reason: volume overload Stop: 02/12/20 23:44 Lorazepam (Ativan) 0.5 mg in 1 mls @ 1 mls/min IV Q4H PRN PRN Reason: Anxiety/Agitation Stop: 02/13/20 00:06 Last Admin: 01/14/20 04:26 Dose: 1 mls/min Documented by: Lorazepam (Lorazepam 0.5 Mg Tab) 0.5 mg PO Q4H PRN PRN Reason: Anxiety/Agitation Stop: 02/13/20 00:06 Miscellaneous (Check Scopolamine Patch Placement) 1 ea N/A QS JUN Stop: 02/13/20 07:59 Last Admin: 01/15/20 07:30 Dose: Not Given Documented by: Miscellaneous (Remove Transderm-Scop Patch) 1 ea N/A Q72H JUN Stop: 02/15/20 22:59 Ondansetron HCl (Ondansetron Inj 2 Mg/Ml 2 Ml Vial) 4 mg IV Q6H PRN PRN Reason: Nausea Stop: 02/12/20 22:42 Ondansetron HCl (Ondansetron Inj 2 Mg/Ml 2 Ml Vial) 4 mg IV Q4H PRN PRN Reason: Nausea And Vomiting Stop: 02/13/20 00:06 Ondansetron HCl (Ondansetron 4 Mg Od Tab) 4 mg SL Q4H PRN PRN Reason: Nausea And Vomiting Stop: 02/13/20 00:06 Scopolamine (Scopolamine 1.5 Mg Tdsy) 1.5 mg TD Q72H PRN PRN Reason: secretions Stop: 02/12/20 22:42 Last Admin: 01/15/20 13:06 Dose: 1.5 mg Documented by:
--- NOTE | 2020-01-15 15:54 | Death Pronouncement Note ---
Date of Service January 15, 2020 Pronouncement Note Admission Date Admission Date: January 13, 2020 Asked to pronounce: On examination: Remains totally unresponsive to any stimuli No respiration and no pulse in her blood pressure Pupils widely dilated and fixed No audible heart sounds She was pronounced on 01/15/2020 at 1503 hrs. Family members are aware Contributing Factors (1) Acute abdominal pain: Contributing factors: Causes of : 1)Metastatic endometrial adenocarcinoma 2)Sepsis secondary to visceral perforation Dr Justen Vázquez (2) Endometrial adenocarcinoma: (3) Metastatic adenocarcinoma to liver: Additional Data Attending physician: Clive Vázquez MD
--- NOTE | 2020-01-15 16:23 | Electrocardiogram Report ---
Test Reason : Blood Pressure : / mmHG Vent. Rate : 136 BPM Atrial Rate : 136 BPM P-R Int : 126 ms QRS Dur : 058 ms QT Int : 302 ms P-R-T Axes : 088 052 035 degrees QTc Int : 454 ms Sinus tachycardia Cannot rule out Anterior infarct , age undetermined Possible Inferior infarct Nonspecific ST abnormality Abnormal ECG When compared with ECG of 09-NOV-2019 06:21, Premature atrial complexes are no longer Present Nonspecific T wave abnormality, improved in Inferior leads T wave inversion no longer evident in Anterolateral leads Confirmed by Bhavesh Ovalle ([id number]) on 01/15/2020 4:23:00 PM Referred By: REFERRED SELF Confirmed By:Bhavesh Ovalle
--- NOTE | 2020-01-16 07:57 | Discharge Summary ---
Date of Service January 16, 2020 Admission HPI Per Admitting Provider 64-year-old female with history of endometrial carcinoma, with liver mets, on chemo, History of PE on Eliquis, presenting with abdominal pain. Patient currently undergoing chemotherapy for endometrial carcinoma with liver mets under the care of Dr. Vincent. She also underwent thoracentesis last week. Patient developed abdominal pain since yesterday prompting consult to the ER. The abdomen and pelvis showed signs of perforated viscus, with intra-abdominal abscess. Patient was noted to be hypotensive at the ER as well. General surgery consulted, recommend transfer to tertiary care facility. Prolonged discussion with patient and family, the patient has decided to transition to comfort measures status only. Morphine drip started in the ER. On exam, the patient is awake, alert, oriented x3, reporting significant abdominal pain and mild shortness of breath secondary to pain. No other symptoms Primary Care Provider: Artemio Narvaez MD Admission Exam Per Admitting Provider Physical Exam: General- oriented x 3, uncomfortable secondary to abdominal pain, speaks in sentences with no effort or accessory muscle use Head- atraumatic Eyes- PERRL, EOMI, anicteric ENT- oropharynx clear Neck- supple, no JVD, no adenopathy, no thyromegaly; carotids +2/2, no bruits appreciated Lungs- clear to auscultation bilaterally, no rales/wheezes Heart-tachycardic, regular rhythm; no murmur, no gallop, no rub appreciated Abdomen- normal bowel sounds, nondistended, soft, positive significant generalized tenderness Extremities- no pretibial edema, no calf tenderness; peripheral pulses intact Neuro- alert, oriented x 3; CN 2-12 grossly intact; motor 5/5 bilaterally;sensation 100% on all extremities; no other gross focal neurologic deficits Skin- warm & dry Principal Diagnosis : Metastatic Uterine Adenocarcinoma,Sepsis secondary to Visceral perforation Discharge Data Allergies Allergy/AdvReac Type Severity Reaction Status Date / Time No Known Allergies Allergy Verified 01/13/20 18:08 Consultations 01/13/20 20:03 ED Decision to Admit Stat 01/14/20 00:08 Consult Case Management - Discharge Planning Routine Consult Palliative Care Routine Ordered Studies 01/13/20 16:51 CT abd pelvis IV con only Stat 01/13/20 17:13 CT angio chest PE protocol Stat Hospital Course (1) Acute abdominal pain: Sepsis, POA in the setting of intra-abdominal abscess, visceral perforation, and peritonitis Met sepsis criteria on admission (2) Endometrial adenocarcinoma: (3) Metastatic adenocarcinoma to liver: Acute abdominal pain secondary to visceral perforation, intra-abdominal abscess, peritonitis Endometrial cancer with liver metastasis Comfort measures status only CT abdomen pelvis: 1. There are numerous foci of intraperitoneal free air consistent with visceral perforation. 2. A multiloculated thin serpiginous fluid collection in the deep pelvis is consistent with abscess. A smaller abscess is seen superior to the sigmoid colon, and phlegmonous change in the ventral pelvis also likely represents developing abscess. 3. The site of perforation is not clearly identified. The appendix is not clearly visualized and there is diverticulosis of the sigmoid colon. Given the location the top differential considerations include perforated appendicitis versus diverticulitis. Surgical consultation is advised. 4. There are numerous thick walled small bowel loops in the pelvis, likely related to adjacent infection/peritonitis. 5. The bladder wall is thickened and there is pericystic inflammation. Correlation with urinalysis will be required. 6. There is a small amount of residual pulmonary embolus identified in the right lower lobe pulmonary artery. The burden of thrombus has significantly improved from the 10/20/2019 examination. 7. There is a moderate right pleural effusion with associated consolidation. This has increased from the 10/20/2019 examination. 8. A large mass lesion is again identified in the right lobe of the liver. 9. A 1.5 cm lesion in the inferior right lobe of the liver is new from previous. --Appreciate palliative care input and recommendation --Morphine drip, PRN Ativan, scopolamine patch, atropine drops --Patient and family is understanding, agreeable, comfortable with plan of care --He is comfortable and will continue comfort care History of PE on Eliquis Hypertension Dyslipidemia Paroxysmal atrial tachycardia --Will DC Eliquis, metoprolol Palliative medicine consulted on admission Currently patient is not responding to verbal or tactile stimuli. She is on IV morphine. Family updated outside of patient's room, understanding, agreeable and comfortable with plan of care. Discussed with the family members Total Time Total Time Spent Total Time Spent (In Minutes): 20 minutes Total Time Includes: Other Discharge Plan Discharge Items Patient Disposition:
== END 2020-01-15 16:51 | disposition expired | DRG 951 ==
LOC: ED 16:20 → SUATTDRO 20:59 → 3E 20:59